=== PATIENT | male | born 1945 | race Caucasian/White ===

== ENCOUNTER → 2016-08-23 | Outpatient (CLI) | payer MEDICARE, OTHER | LOC: MW.CHNEURO 08:00 | PROVIDERS: ATTEND Psychiatry & Neurology Neuromuscular Medicine | DX: G25.0 Essential tremor (principal) | CPT/HCPCS: 99214 ==

== ENCOUNTER 2020-11-25 09:05 | Inpatient (IN) | payer MEDICARE, OTHER ==
[2020-11-25] MEDS ORDERED: Sodium Chloride 0.9% 2.5 ML Syringe FLUSH PRN (10:06)
[2020-11-25] MEDS ORDERED: Sodium Chloride 0.9% 10 ML Syringe FLUSH PRN (10:06)
--- NOTE | 2020-11-25 10:10 | EDM.PDOC ---
ED HPI GENERAL MEDICAL PROBLEM - General Chief Complaint: Respiratory Problem Stated Complaint: SOB/PT HAS NO ENERGY Time Seen by Provider: 11/25/20 10:04 - Related Data Allergies Allergy/AdvReac Type Severity Reaction Status Date / Time No Known Allergies Allergy Verified 11/25/20 10:00 Home Meds: Home Meds Aspirin/Calcium Carbonate/Mag [Aspirin Buffered 325 mg Tab] 325 mg PO DAILY 08/06/15 [History] Fluticasone Propionate [Flovent] 2 puff IH DAILY 08/06/15 [History] Fluticasone/Salmeterol [Advair Diskus 100-50] 1 puff INH BID 08/06/15 [History] Gabapentin [Neurontin] 300 mg PO TID 08/06/15 [History] Insulin Glarg,Human.Rec.Analog [Lantus] 42 unit SUBCUT QPM 08/06/15 [History] LORazepam [Ativan] 1 mg PO Q8H PRN 08/06/15 [History] Lisinopril 5 mg PO DAILY 08/06/15 [History] Omeprazole 20 mg PO DAILY 08/06/15 [History] Primidone 250 mg PO BID 08/06/15 [History] Simvastatin 1 tab PO QPM 08/06/15 [History] Tamsulosin [Flomax] 0.4 mg PO ONETIME 08/06/15 [History] Furosemide [Lasix] 40 mg PO DAILY #0 08/07/15 [Rx] metFORMIN [Glucophage XR] 500 mg PO WITHDINNER #0 08/07/15 [Rx] predniSONE [Prednisone] 40 mg PO DAILY #6 tablet 08/07/15 [Rx] Past Medical History HEENT History: Reports: Other (See Below) Cardiovascular History: Reports: High Cholesterol, Hypertension, [place] Respiratory History: Reports: COPD Gastrointestinal History: Reports: GERD Musculoskeletal History: Reports: Amputation Other Musculoskeletal History: right index finger amputation Neurological History: Reports: Other (See Below) Other Neuro History: familiar tremors Psychiatric History: Reports: Anxiety Endocrine/Metabolic History: Reports: Diabetes, Type II, Obesity/BMI 30+ Oncologic (Cancer) History: Reports: Other (See Below) - Infectious Disease History Infectious Disease History: Reports: Chicken Pox, Measles - Past Surgical History HEENT Surgical History: Reports: Cataract Surgery Other HEENT Surgeries/Procedures: bilateral eye surgery Cardiovascular Surgical History: Reports: Coronary Artery Stent Musculoskeletal Surgical History: Reports: Amputation Social & Family History - Family History Family Medical History: No Pertinent Family History - Living Situation & Occupation Occupation: Retired Course - Vital Signs Last Recorded V/S: Last Vital Signs Temp 36.6 C 11/25/20 09:30 Pulse 97 11/25/20 09:30 Resp 20 11/25/20 09:30 BP 128/65 11/25/20 09:30 Pulse Ox 91 L 11/25/20 09:30 - Orders/Labs/Meds Orders: Active Orders 24 hr Category Date Time Status EKG 12 Lead [EKG Documentation Completion] [RC] ROUTINE Care 11/25/20 09:45 Active Chest 1V Frontal [CR] Stat Exams 11/25/20 10:06 Ordered CBC WITH AUTO DIFF [HEME] Stat Lab 11/25/20 10:06 Ordered COMPREHENSIVE METABOLIC PN,CMP [CHEM] Stat Lab 11/25/20 10:06 Ordered TROPONIN I [CHEM] Stat Lab 11/25/20 10:06 Ordered UA RFX KATRINA AND CULT IF INDIC [URIN] Stat Lab 11/25/20 10:06 Ordered Sodium Chloride 0.9% [Saline Flush] Med 11/25/20 10:06 Active 10 ml FLUSH ASDIRECTED PRN Sodium Chloride 0.9% [Saline Flush] Med 11/25/20 10:06 Active 2.5 ml FLUSH ASDIRECTED PRN Saline Lock Insert [OM.PC] Stat Oth 11/25/20 10:06 Ordered Medication Orders Sodium Chloride (Sodium Chloride 0.9% 10 Ml Syringe) 10 ml FLUSH ASDIRECTED PRN PRN Reason: Keep Vein Open Sodium Chloride (Sodium Chloride 0.9% 2.5 Ml Syringe) 2.5 ml FLUSH ASDIRECTED PRN PRN Reason: Keep Vein Open Meds: Medications Generic Name Dose Route Start Last Admin Trade Name Freq PRN Reason Stop Dose Admin Sodium Chloride 10 ml 11/25/20 10:06 Sodium Chloride 0.9% 10 Ml Syringe FLUSH ASDIRECTED PRN Keep Vein Open Sodium Chloride 2.5 ml 11/25/20 10:06 Sodium Chloride 0.9% 2.5 Ml Syringe FLUSH ASDIRECTED PRN Keep Vein Open Departure - Discharge Information Referrals: Mu Briggs MD [Primary Care Provider] - Sepsis Event Note (ED) - Evaluation Sepsis Screening Result: No Definite Risk - Focused Exam Vital Signs: Vital Signs Temp Pulse Resp BP Pulse Ox 11/25/20 09:30 36.6 C 97 20 128/65 91 L - My Orders Last 24 Hours: My Active Orders 11/25/20 09:45 EKG 12 Lead [EKG Documentation Completion] [RC] ROUTINE - Assessment/Plan Last 24 Hours: My Active Orders 11/25/20 09:45 EKG 12 Lead [EKG Documentation Completion] [RC] ROUTINE
--- NOTE | 2020-11-25 10:11 | PCM.SN.2 ---
- Free Text/Narrative Note: EKG done a 1021 at 9:30 AM shows a sinus rhythm with a heart rate 98 MI 161 axis -72 abnormal R wave progression compared to 08/06/2015 no change impression no acute injury
[2020-11-25] MEDS ORDERED: Albuterol/Ipratropium 3.0-0.5 MG/3 ML Neb Soln NEB ONE (10:26)
[2020-11-25] MEDS ORDERED: methylPREDNISolone Sodium Succinate 125 MG/2 ML SDV IVPUSH ONE (10:26)
[2020-11-25 10:34] LABS: BLOOD UREA NITROGEN,BUN 21 mg/dL (7.0-18.0); CARBON DIOXIDE,CO2 24.8 mmol/L (21.0-32.0); CHLORIDE,CL 104 mmol/L (98-107); GLUCOSE RANDOM 114 mg/dL (74-106); POTASSIUM,K 4.1 mmol/L (3.5-5.1); SODIUM,NA 139 mmol/L (136-148)
--- NOTE | 2020-11-25 10:44 | EDM.PDOC ---
ED HPI GENERAL MEDICAL PROBLEM - General Chief Complaint: Respiratory Problem Stated Complaint: SOB/PT HAS NO ENERGY Time Seen by Provider: 11/25/20 10:04 Source of Information: Reports: Patient History Limitations: Reports: No Limitations - History of Present Illness INITIAL COMMENTS - FREE TEXT/NARRATIVE: HISTORY AND PHYSICAL: History of present illness: Patient is a 75-year-old male, with a history of COPD, T2DM on insulin, CAD s/p 1 2003, who presents emergency room today with concern of shortness of breath, weakness/fatigue that has been ongoing for the past 3 days. Patient states that approximately 1 week ago he thought he had a "sinus infection" as he had a stuffy/runny nose sore throat and slight cough. Patient states over the past 3 days, he continues to have the symptoms but states the cough has now returned to shortness of breath and weakness. Patient states that he has been using his inhalers as prescribed to him for COPD and states that this has had some improvement of his shortness of breath. Patient states he does not feel short of breath when at rest but states if he does try to stand up or move, he is unable to ambulate due to shortness of breath and has to sit back down. Patient states he also feels super fatigued and weak and states that this is making it harder to stand. Patient states per his baseline, he is able to stand and get up without feeling short of breath and able to move around the house without difficulty. Patient states now over the past 3 days, he has difficulty standing up and can only do this for short period of time before feeling weak and short of breath and having to sit down. Patient states he has not taken anything else for his symptoms other than prescribed medication. Patient denies any other symptoms or concerns. Patient states he has been fully vaccinated for COVID-19. Patient denies fever, chills, chest pain. Denies headache, neck stiff ness, change in vision, syncope, or near syncope. Denies nausea, vomiting, abdominal pain, diarrhea, constipation, or dysuria. Has not noted any blood in urine or stool. Patient has been eating and drinking appropriately. Review of systems: As per history of present illness and below otherwise all systems reviewed and negative. Past medical history: As per history of present illness and as reviewed below otherwise noncontributory. Surgical history: As per history of present illness and as reviewed below otherwise noncontributory. Social history: See social history for further information Family history: As per history of present illness and as reviewed below otherwise noncontributory. Physical exam: General: Patient is alert, oriented, and in no acute distress. Patient sitting comfortably on exam table. Patient O2 on RA 930-93%, otherwise vitally stable stable and reviewed by me. HEENT: Atraumatic, normocephalic, pupils equal and reactive bilaterally, negative for conjunctival pallor or scleral icterus, mucous membranes moist, TMs normal bilaterally, throat clear, neck supple, nontender, trachea midline. No drooling or trismus noted. No meningeal signs. No hot potato voice noted. Lungs: Diminished lung sounds bilaterally however, clear to auscultation, breath sounds equal bilaterally, chest nontender. Patient speaking clearly without breathlessness, no wheezing or stridor, no accessory muscle use or respiratory distress. Heart: S1S2, regular rate and rhythm without overt murmur Abdomen: Soft, nondistended, nontender. Negative for masses or hepatosplenomegaly. Negative for costovertebral tenderness. Pelvis: Stable nontender. Genitourinary: Deferred. Rectal: Deferred. Skin: Intact, warm, dry. No lesions or rashes noted. Extremities: Atraumatic, negative for cords or calf pain. Neurovascular unremarkable. Neuro: Awake, alert, oriented. Cranial nerves II through XII unremarkable. Cerebellum unremarkable. Motor and sensory unremarkable throughout. Exam nonfocal. Notes: Patient is a 75 year old male, with a history of COPD, type 2 diabetes on insulin, coronary artery disease status post 1 stent in 2003, who who presents to the emergency room today secondary to worsening shortness of breath, cough, and weakness x3 days with a 1 week history of viral syndrome. Upon arrival to the ED, patient oxygen on room air is 93% and patient is breathing comfortably on exam. Lung sounds are diminished bilaterally without wheezing and otherwise lungs are clear to auscultation. Patient is sitting in a wheelchair at bedside and does have difficulties standing up but is able to stand up but has to sit down stating he feels short of breath and weak. Patient does have a drop of his oxygen anytime he repositions himself in bed or goes to sit up and his oxygen does drop down to 8586%. Patient was placed on 2 L nasal cannula. Will obtain cardiac evaluation, initiate DuoNeb, provide dose of steroid, and reassess patient. See Dr. Trammell dictation for specific EKG interpretation. However, normal sinus rhythm with a rate of 98 without STEMI. Prolonged QT with a corrected QTC of 504. CBC shows mildly decreased red blood cell counts of 4.27. Mild thrombocytopenia at 124. Otherwise, mild derangements of CBC unremarkable. D-dimer is elevated at 0.76. Will obtain and CT chest. CMP shows mild elevation of BUN at 21, magnesium decreased at 1.7, will provide IV magnesium at this time, AST mildly elevated at 42. Troponin negative. BNP within normal limits. COVID-19 positive. Influenza negative. Chest x-ray shows no acute cardiopulmonary findings.And CT chest shows no sign of moderate to large central pulmonary embolism. Small patchy groundglass infiltrates in both lungs. Upon reevaluation of patient, he remains comfortable and vitally stable on 2 L nasal cannula. I did call and speak to the hospitalist on-call, Dr. Morales, and thoroughly discussed patient's case. Will admit to observation on telemetry. Voices understanding and is agreeable to plan of care. Denies any further questions or concerns at this time. Diagnostics: EKG, CBC, CMP, UA, chest x-ray, troponin, D-dimer, magnesium, COVID-19/influenza Therapeutics: DuoNeb, Solu-Medrol, Magnesium Sulfate 4G IV Impression: COVID-19 infection Hypoxia COPD exacerbation secondary to COVID-19 viral infection Hypomagnesemia Plan: Admit to observation on telemetry to Dr. Morales Definitive disposition and diagnosis as appropriate pending reevaluation and review of above. - Related Data Allergies Allergy/AdvReac Type Severity Reaction Status Date / Time No Known Allergies Allergy Verified 11/25/20 10:00 Home Meds: Home Meds Fluticasone/Salmeterol [Advair Diskus 100-50] 1 puff INH BID 08/06/15 [History] Gabapentin [Neurontin] 600 mg PO TID 08/06/15 [History] Insulin Glarg,Human.Rec.Analog [Lantus] 42 unit SUBCUT QPM 08/06/15 [History] Lisinopril 5 mg PO DAILY 08/06/15 [History] Omeprazole 20 mg PO DAILY 08/06/15 [History] Primidone 500 mg PO BID 08/06/15 [History] Simvastatin 1 tab PO QPM 08/06/15 [History] Tamsulosin [Flomax] 0.4 mg PO DAILY 08/06/15 [History] Furosemide [Lasix] 40 mg PO DAILY #0 08/07/15 [Rx] ALPRAZolam [Alprazolam] 1 mg PO BID PRN 11/25/20 [History] Albuterol Sulfate [Albuterol Sulfate HFA] 2 puff INH QID PRN 11/25/20 [History] Aspirin [Aspirin EC] 81 mg PO DAILY 11/25/20 [History] Cyanocobalamin (Vitamin B-12) [Vitamin B-12] 100 mcg PO DAILY 11/25/20 [History] Fluticasone Propionate [Flonase] 2 sprays NASBOTH DAILY 11/25/20 [History] Pioglitazone HCl/Metformin HCl [Actoplus Met 15 MG-850 MG] 1 each PO DAILY 11/25/20 [History] Potassium Chloride 10 meq PO DAILY 11/25/20 [History] Topiramate 100 mg PO BID 11/25/20 [History] Past Medical History HEENT History: Reports: Other (See Below) Cardiovascular History: Reports: High Cholesterol, Hypertension, [place] Respiratory History: Reports: COPD Gastrointestinal History: Reports: GERD Musculoskeletal History: Reports: Amputation Other Musculoskeletal History: right index finger amputation Neurological History: Reports: Other (See Below) Other Neuro History: familiar tremors Psychiatric History: Reports: Anxiety Endocrine/Metabolic History: Reports: Diabetes, Type II, Obesity/BMI 30+ Oncologic (Cancer) History: Reports: Other (See Below) - Infectious Disease History Infectious Disease History: Reports: Chicken Pox, Measles - Past Surgical History HEENT Surgical History: Reports: Cataract Surgery Other HEENT Surgeries/Procedures: bilateral eye surgery Cardiovascular Surgical History: Reports: Coronary Artery Stent Musculoskeletal Surgical History: Reports: Amputation Social & Family History - Family History Family Medical History: No Pertinent Family History - Living Situation & Occupation Occupation: Retired ED ROS GENERAL - Review of Systems Review Of Systems: Comprehensive ROS is negative, except as noted in HPI. ED EXAM, GENERAL - Physical Exam Exam: See Below (see dictation) Course - Vital Signs Last Recorded V/S: Last Vital Signs Temp 97.8 F 11/25/20 09:30 Pulse 82 11/25/20 13:30 Resp 22 H 11/25/20 13:30 BP 130/67 11/25/20 13:30 Pulse Ox 91 L 11/25/20 13:30 - Orders/Labs/Meds Orders: Active Orders 24 hr Category Date Time Status EKG 12 Lead [EKG Documentation Completion] [RC] ROUTINE Care 11/25/20 09:45 Active RT Aerosol Therapy [RC] ASDIRECTED Care 11/25/20 10:26 Active UA RFX KATRINA AND CULT IF INDIC [URIN] Stat Lab 11/25/20 10:06 Ordered Magnesium Sulfate/Water [Magnesium Sulfate in Water 4 Med 11/25/20 11:10 Active GM/100 ML] 4 gm Premix Bag 1 bag IV ONETIME Sodium Chloride 0.9% [Saline Flush] Med 11/25/20 10:06 Active 10 ml FLUSH ASDIRECTED PRN Sodium Chloride 0.9% [Saline Flush] Med 11/25/20 10:06 Active 2.5 ml FLUSH ASDIRECTED PRN Saline Lock Insert [OM.PC] Stat Oth 11/25/20 10:06 Ordered Medication Orders Albuterol/Ipratropium (Albuterol/Ipratropium 4 Gm Inhalation [place]) 1 gm INH Q4H PRN PRN Reason: Dyspnea Azithromycin (Azithromycin 250 Mg Tab) 500 mg PO Q24H EDI Dexamethasone (Dexamethasone 4 Mg Tab) 6 mg PO DAILY EDI Enoxaparin Sodium (Enoxaparin 40 Mg/0.4 Ml Syringe) 40 mg SUBCUT Q24H EDI Gabapentin (Gabapentin 100 Mg Cap) 300 mg PO TID EDI Magnesium Sulfate 4 gm/ Premix 100 mls @ 25 mls/hr IV ONETIME ONE Stop: 11/25/20 15:09 Last Admin: 11/25/20 12:37 Dose: 25 mls/hr Documented by: SEWATIF Remdesivir 100 mg/ Sodium (Chloride) 100 mls @ 100 mls/hr IV Q24H EDI Stop: 11/29/20 15:29 Remdesivir 200 mg/ Sodium (Chloride) 250 mls @ 250 mls/hr IV ONETIME ONE Stop: 11/25/20 14:17 Lisinopril (Lisinopril 5 Mg Tab) 5 mg PO DAILY EDI Lorazepam (Lorazepam 1 Mg Tab) 1 mg PO Q8H PRN PRN Reason: Anxiety Non-Formulary Medication (Insulin Glarg,Human.Rec.Analog) 42 unit SUBCUT QPM EDI Omeprazole (Omeprazole 20 Mg Cap.Cr) 20 mg PO DAILY EDI Fluticasone/Salmeterol (Fluticasone/Salmeterol 100-50 Mcg Inhalation Powder 14/Diskus) 1 puff INH BID EDI Simvastatin (Simvastatin 40 Mg Tab) 40 mg PO BEDTIME EDI Sodium Chloride (Sodium Chloride 0.9% 10 Ml Syringe) 10 ml FLUSH ASDIRECTED PRN PRN Reason: Keep Vein Open Last Admin: 11/25/20 10:49 Dose: 10 ml Documented by: TAMI Sodium Chloride (Sodium Chloride 0.9% 2.5 Ml Syringe) 2.5 ml FLUSH ASDIRECTED PRN PRN Reason: Keep Vein Open Last Admin: 11/25/20 10:49 Dose: 2.5 ml Documented by: TAMI Labs: Laboratory Tests 11/25/20 11/25/20 11/25/20 Range/Units 09:45 09:45 09:45 WBC 4.90 (4.0-11.0) K/uL RBC 4.27 L (4.50-5.90) M/uL Hgb 14.3 (13.0-17.0) g/dL Hct 43.3 (38.0-50.0) % MCV 101.4 H (80.0-98.0) fL MCH 33.5 H (27.0-32.0) pg MCHC 33.0 (31.0-37.0) g/dL RDW Std Deviation 52.5 (28.0-62.0) fl RDW Coeff of Romina 14 (11.0-15.0) % Plt Count 124 L (150-400) K/uL MPV 11.70 (7.40-12.00) fL Neut % (Auto) 75.9 (48.0-80.0) % Lymph % (Auto) 19.2 (16.0-40.0) % [place] % (Auto) 4.9 (0.0-15.0) % Eos % (Auto) 0.0 (0.0-7.0) % Baso % (Auto) 0.0 (0.0-1.5) % Neut # (Auto) 3.7 (1.4-5.7) K/uL Lymph # (Auto) 0.9 (0.6-2.4) K/uL [place] # (Auto) 0.2 (0.0-0.8) K/uL Eos # (Auto) 0.0 (0.0-0.7) K/uL Baso # (Auto) 0.0 (0.0-0.1) K/uL Nucleated RBC % 0.0 /100WBC Nucleated RBCs # 0 K/uL D-Dimer, Quantitative 0.76 H (0.0-0.50) mg/L FEU Sodium 139 (136-148) mmol/L Potassium 4.1 (3.5-5.1) mmol/L Chloride 104 (98-107) mmol/L Carbon Dioxide 24.8 (21.0-32.0) mmol/L BUN 21 H (7.0-18.0) mg/dL Creatinine 1.1 (0.8-1.3) mg/dL Est Cr Clr Drug Dosing 58.92 mL/min Estimated GFR (MDRD) > 60.0 ml/min Glucose 114 H (74-106) mg/dL Calcium 8.2 L (8.5-10.1) mg/dL Magnesium (1.8-2.4) mg/dL Total Bilirubin 0.3 (0.2-1.0) mg/dL AST 42 H (15-37) IU/L ALT 41 (14-63) IU/L Alkaline Phosphatase 65 (46-116) U/L Troponin I < 0.050 (0.000-0.056) ng/mL B-Natriuretic Peptide (<100) PG/ML Total Protein 7.2 (6.4-8.2) g/dL Albumin 2.9 L (3.4-5.0) g/dL Globulin 4.3 H (2.6-4.0) g/dL Albumin/Globulin Ratio 0.7 L (0.9-1.6) SARS-CoV-2 RNA (MARY JO) (NEGATIVE) 11/25/20 11/25/20 11/25/20 Range/Units 09:45 09:45 11:05 WBC (4.0-11.0) K/uL RBC (4.50-5.90) M/uL Hgb (13.0-17.0) g/dL Hct (38.0-50.0) % MCV (80.0-98.0) fL MCH (27.0-32.0) pg MCHC (31.0-37.0) g/dL RDW Std Deviation (28.0-62.0) fl RDW Coeff of Romina (11.0-15.0) % Plt Count (150-400) K/uL MPV (7.40-12.00) fL Neut % (Auto) (48.0-80.0) % Lymph % (Auto) (16.0-40.0) % [place] % (Auto) (0.0-15.0) % Eos % (Auto) (0.0-7.0) % Baso % (Auto) (0.0-1.5) % Neut # (Auto) (1.4-5.7) K/uL Lymph # (Auto) (0.6-2.4) K/uL [place] # (Auto) (0.0-0.8) K/uL Eos # (Auto) (0.0-0.7) K/uL Baso # (Auto) (0.0-0.1) K/uL Nucleated RBC % /100WBC Nucleated RBCs # K/uL D-Dimer, Quantitative (0.0-0.50) mg/L FEU Sodium (136-148) mmol/L Potassium (3.5-5.1) mmol/L Chloride (98-107) mmol/L Carbon Dioxide (21.0-32.0) mmol/L BUN (7.0-18.0) mg/dL Creatinine (0.8-1.3) mg/dL Est Cr Clr Drug Dosing mL/min Estimated GFR (MDRD) ml/min Glucose (74-106) mg/dL Calcium (8.5-10.1) mg/dL Magnesium 1.7 L (1.8-2.4) mg/dL Total Bilirubin (0.2-1.0) mg/dL AST (15-37) IU/L ALT (14-63) IU/L Alkaline Phosphatase (46-116) U/L Troponin I (0.000-0.056) ng/mL B-Natriuretic Peptide 28 (<100) PG/ML Total Protein (6.4-8.2) g/dL Albumin (3.4-5.0) g/dL Globulin (2.6-4.0) g/dL Albumin/Globulin Ratio (0.9-1.6) SARS-CoV-2 RNA (MARY JO) POSITIVE H (NEGATIVE) Meds: Medications Generic Name Dose Route Start Last Admin Trade Name Freq PRN Reason Stop Dose Admin Albuterol/Ipratropium 1 gm 11/25/20 14:18 Albuterol/Ipratropium 4 Gm Inhalation [place] INH Q4H PRN Dyspnea Azithromycin 500 mg 11/25/20 14:30 Azithromycin 250 Mg Tab PO Q24H [facility] Dexamethasone 6 mg 11/26/20 09:00 Dexamethasone 4 Mg Tab PO DAILY [facility] Enoxaparin Sodium 40 mg 11/25/20 14:15 Enoxaparin 40 Mg/0.4 Ml Syringe SUBCUT Q24H [facility] Gabapentin 300 mg 11/25/20 22:00 Gabapentin 100 Mg Cap PO TID [facility] Magnesium Sulfate 4 gm/ Premix 100 mls @ 25 mls/hr 11/25/20 11:10 11/25/20 12:37 IV 11/25/20 15:09 25 mls/hr ONETIME ONE Administration Remdesivir 100 mg/ Sodium 100 mls @ 100 mls/hr 11/26/20 14:30 Chloride IV 11/29/20 15:29 Q24H EDI Remdesivir 200 mg/ Sodium 250 mls @ 250 mls/hr 11/25/20 14:16 Chloride IV 11/25/20 14:17 ONETIME ONE Lisinopril 5 mg 11/26/20 09:00 Lisinopril 5 Mg Tab PO DAILY [facility] Lorazepam 1 mg 11/25/20 14:02 Lorazepam 1 Mg Tab PO Q8H PRN Anxiety Non-Formulary Medication 42 unit 11/25/20 18:00 Insulin Glarg,Human.Rec.Analog SUBCUT QPM [facility] Omeprazole 20 mg 11/26/20 09:00 Omeprazole 20 Mg Cap.Cr PO DAILY [facility] Fluticasone/Salmeterol 1 puff 11/25/20 21:00 Fluticasone/Salmeterol 100-50 Mcg Inhalation Powder 14/Diskus INH BID [facility] Simvastatin 40 mg 11/25/20 21:00 Simvastatin 40 Mg Tab PO BEDTIME EDI Sodium Chloride 10 ml 11/25/20 10:06 11/25/20 10:49 Sodium Chloride 0.9% 10 Ml Syringe FLUSH 10 ml ASDIRECTED PRN Administration Keep Vein Open Sodium Chloride 2.5 ml 11/25/20 10:06 11/25/20 10:49 Sodium Chloride 0.9% 2.5 Ml Syringe FLUSH 2.5 ml ASDIRECTED PRN Administration Keep Vein Open Discontinued Medications Generic Name Dose Route Start Last Admin Trade Name Freq PRN Reason Stop Dose Admin Albuterol/Ipratropium 3 ml 11/25/20 10:26 11/25/20 10:49 Albuterol/Ipratropium 3.0-0.5 Mg/3 Ml Neb Soln NEB 11/25/20 10:27 3 ml ONETIME ONE Administration Iopamidol 80 ml 11/25/20 12:05 11/25/20 12:06 Iopamidol 755 Mg/Ml 500 Ml Multipack Bottle IVPUSH 11/25/20 12:06 80 ml ONETIME STA Administration Methylprednisolone Sodium Succinate 125 mg 11/25/20 10:26 11/25/20 10:49 Methylprednisolone Sodium Succinate 125 Mg/2 Ml Sdv IVPUSH 11/25/20 10:27 125 mg ONETIME ONE Administration Departure - Departure Time of Disposition: 13:30 Disposition: Refer to Observation Clinical Impression: COVID-19 virus infection, Hypoxia, COPD exacerbation, Hypomagnesemia - Discharge Information Sepsis Event Note (ED) - Evaluation Sepsis Screening Result: No Definite Risk - Focused Exam Vital Signs: Vital Signs Temp Pulse Resp BP Pulse Ox 11/25/20 13:30 82 22 H 130/67 91 L 11/25/20 12:43 88 22 H 120/69 92 L 11/25/20 11:31 84 22 H 137/60 92 L 11/25/20 11:02 90 24 H 148/48 H 94 L 11/25/20 09:30 97.8 F 97 20 128/65 91 L - My Orders Last 24 Hours: My Active Orders 11/25/20 10:06 UA RFX KATRINA AND CULT IF INDIC [URIN] Stat Sodium Chloride 0.9% [Saline Flush] 10 ml FLUSH ASDIRECTED PRN Sodium Chloride 0.9% [Saline Flush] 2.5 ml FLUSH ASDIRECTED PRN Saline Lock Insert [OM.PC] Stat 11/25/20 10:26 RT Aerosol Therapy [RC] ASDIRECTED 11/25/20 11:10 Magnesium Sulfate/Water [Magnesium Sulfate in Water 4 GM/100 ML] 4 gm Premix Bag 1 bag IV ONETIME - Assessment/Plan Last 24 Hours: My Active Orders 11/25/20 10:06 UA RFX KATRINA AND CULT IF INDIC [URIN] Stat Sodium Chloride 0.9% [Saline Flush] 10 ml FLUSH ASDIRECTED PRN Sodium Chloride 0.9% [Saline Flush] 2.5 ml FLUSH ASDIRECTED PRN Saline Lock Insert [OM.PC] Stat 11/25/20 10:26 RT Aerosol Therapy [RC] ASDIRECTED 11/25/20 11:10 Magnesium Sulfate/Water [Magnesium Sulfate in Water 4 GM/100 ML] 4 gm Premix Bag 1 bag IV ONETIME
[2020-11-25] MEDS ORDERED: Magnesium Sulfate/Water 4 GM in Premix Bag 1 BAG IV ONE (11:10)
--- NOTE | 2020-11-25 11:31 | CR ---
INDICATION: Shortness of breath. TECHNIQUE: Portable AP chest. FINDINGS: Mild cardiomegaly. No evidence of acute pneumonic infiltrates or CHF. No pneumothorax or pleural effusion. Impression: Mild cardiomegaly. 1. No acute pathology. Dictated by Tae Treviño MD @ 11/25/2020 11:28:[address] Tae Treviño @ Nov 25 2020 11:28AM
[2020-11-25] MEDS ORDERED: Iopamidol 755 MG/ML 500 ML Multipack Bottle IVPUSH STA (12:05)
--- NOTE | 2020-11-25 12:44 | CT ---
INDICATION: Shortness of breath. Elevated D-dimer. TECHNIQUE: CT chest PE was acquired with 80 cc Isovue 370 IV contrast. COMPARISON: None. FINDINGS: Heart and vasculature: No sign of moderate to large or central pulmonary embolism. Smaller pulmonary arteries are not adequately assessed on this exam. Heart size is normal. Thoracic aorta and pulmonary artery are normal in caliber.Coronary artery atherosclerosis is present. Lungs and pleural: Multiple small patchy ground-glass infiltrates are in both lungs, most severe in the lower lobes. Pleural spaces are clear. No pneumothorax. Lymph nodes/mediastinum: No mediastinal, hilar, or axillary adenopathy. Chest wall: No masses. Upper abdomen: Gallbladder stones present. Bones: Unremarkable for age. IMPRESSION: 1. No sign of [id number] or central pulmonary embolism. 2. Small patchy ground-glass infiltrates in both lungs could represent pneumonitis or pulmonary edema. COVID-19 viral infection is not definite but possible. Please note that all CT scans at this facility use dose modulation, iterative reconstruction, and/or weight-based dosing when appropriate to reduce radiation dose to as low as reasonably achievable. Dictated by Markell Ceballos MD @ 11/25/2020 12:43:[address] Markell Ceballos @ Nov 25 2020 12:43PM
[2020-11-25] MEDS ORDERED: ALPRAZolam 0.5 MG Tab PO PRN (14:02)
[2020-11-25] MEDS ORDERED: REMDESIVIR 200 MG in Sodium Chloride 0.9% 250 ML IV ONE ×2 (14:16→18:00)
[2020-11-25] MEDS ORDERED: Albuterol/Ipratropium 4 GM Inhalation Spray INH PRN (14:18)
--- NOTE | 2020-11-25 14:19 | PCM.HP.2 ---
H&P History of Present Illness - General Date of Service: 11/25/20 Admit Problem/Dx: Admission Diagnosis/Problem Admission Diagnosis/Problem Hypoxia - History of Present Illness Initial Comments - Free Text/Narative: 75 yo male with pmh of DM, COPD who presented to the ED with three day history of shortness of breath, productive cough, fevers, and sinus congestion. Patient has been vaccinated for COVID in April. IN the ED patient is requiring 2 L NC to keep sats above 90%. - Related Data Allergies/Adverse Reactions: Allergies Allergy/AdvReac Type Severity Reaction Status Date / Time No Known Allergies Allergy Verified 11/25/20 15:31 Home Medications: Home Meds Fluticasone/Salmeterol [Advair Diskus 100-50] 1 puff INH BID 08/06/15 [History] Gabapentin [Neurontin] 600 mg PO TID 08/06/15 [History] Insulin Glarg,Human.Rec.Analog [Lantus] 42 unit SUBCUT QPM 08/06/15 [History] Lisinopril 5 mg PO DAILY 08/06/15 [History] Omeprazole 20 mg PO DAILY 08/06/15 [History] Primidone 500 mg PO BID 08/06/15 [History] Simvastatin 40 mg PO BEDTIME 08/06/15 [History] Tamsulosin [Flomax] 0.4 mg PO DAILY 08/06/15 [History] Furosemide [Lasix] 40 mg PO DAILY #0 08/07/15 [Rx] ALPRAZolam [Alprazolam] 1 mg PO BID PRN 11/25/20 [History] Albuterol Sulfate [Albuterol Sulfate HFA] 2 puff INH QID PRN 11/25/20 [History] Aspirin [Aspirin EC] 81 mg PO DAILY 11/25/20 [History] Cyanocobalamin (Vitamin B-12) [Vitamin B-12] 100 mcg PO DAILY 11/25/20 [History] Fluticasone Propionate [Flonase] 2 sprays NASBOTH DAILY 11/25/20 [History] Pioglitazone HCl/Metformin HCl [Actoplus Met 15 MG-850 MG] 1 each PO DAILY 11/25/20 [History] Potassium Chloride 10 meq PO DAILY 11/25/20 [History] Topiramate 100 mg PO BID 11/25/20 [History] Past Medical History HEENT History: Reports: Other (See Below) Cardiovascular History: Reports: High Cholesterol, Hypertension, CT Respiratory History: Reports: COPD Gastrointestinal History: Reports: GERD Musculoskeletal History: Reports: Amputation Other Musculoskeletal History: right index finger amputation Neurological History: Reports: Other (See Below) Other Neuro History: familiar tremors Psychiatric History: Reports: Anxiety Endocrine/Metabolic History: Reports: Diabetes, Type II, Obesity/BMI 30+ Oncologic (Cancer) History: Reports: Other (See Below) - Infectious Disease History Infectious Disease History: Reports: Chicken Pox, Measles - Past Surgical History HEENT Surgical History: Reports: Cataract Surgery Other HEENT Surgeries/Procedures: bilateral eye surgery Cardiovascular Surgical History: Reports: Coronary Artery Stent Musculoskeletal Surgical History: Reports: Amputation Social & Family History - Family History Family Medical History: No Pertinent Family History - Living Situation & Occupation Occupation: Retired H&P Review of Systems - Review of Systems: Review Of Systems: Comprehensive ROS is negative, except as noted in HPI. Exam - Exam Exam: See Below - Vital Signs Vital Signs: Last Vital Signs Temp 36.6 C 11/25/20 09:30 Pulse 82 11/25/20 13:30 Resp 22 H 11/25/20 13:30 BP 130/67 11/25/20 13:30 Pulse Ox 91 L 11/25/20 13:30 Weight: 136.078 kg - Exam General: Alert, Oriented HEENT: Mucosa Moist & [place] Neck: Supple Lungs: Wheezing Cardiovascular: Regular Rate, Regular Rhythm GI/Abdominal Exam: Normal Bowel Sounds, Soft, Non-Tender Extremities: Non-Tender, Pedal Edema (+1) Skin: Warm, Dry, Intact Neurological: No: Focal Deficit - Patient Data Lab Results Last 24 hrs: Laboratory Results - last 24 hr 11/25/20 11/25/20 11/25/20 Range/Units 09:45 09:45 09:45 WBC 4.90 (4.0-11.0) K/uL RBC 4.27 L (4.50-5.90) M/uL Hgb 14.3 (13.0-17.0) g/dL Hct 43.3 (38.0-50.0) % MCV 101.4 H (80.0-98.0) fL MCH 33.5 H (27.0-32.0) pg MCHC 33.0 (31.0-37.0) g/dL RDW Std Deviation 52.5 (28.0-62.0) fl RDW Coeff of Romina 14 (11.0-15.0) % Plt Count 124 L (150-400) K/uL MPV 11.70 (7.40-12.00) fL Neut % (Auto) 75.9 (48.0-80.0) % Lymph % (Auto) 19.2 (16.0-40.0) % Divide % (Auto) 4.9 (0.0-15.0) % Eos % (Auto) 0.0 (0.0-7.0) % Baso % (Auto) 0.0 (0.0-1.5) % Neut # (Auto) 3.7 (1.4-5.7) K/uL Lymph # (Auto) 0.9 (0.6-2.4) K/uL Divide # (Auto) 0.2 (0.0-0.8) K/uL Eos # (Auto) 0.0 (0.0-0.7) K/uL Baso # (Auto) 0.0 (0.0-0.1) K/uL Nucleated RBC % 0.0 /100WBC Nucleated RBCs # 0 K/uL D-Dimer, Quantitative 0.76 H (0.0-0.50) mg/L FEU Sodium 139 (136-148) mmol/L Potassium 4.1 (3.5-5.1) mmol/L Chloride 104 (98-107) mmol/L Carbon Dioxide 24.8 (21.0-32.0) mmol/L BUN 21 H (7.0-18.0) mg/dL Creatinine 1.1 (0.8-1.3) mg/dL Est Cr Clr Drug Dosing 58.92 mL/min Estimated GFR (MDRD) > 60.0 ml/min Glucose 114 H (74-106) mg/dL Calcium 8.2 L (8.5-10.1) mg/dL Magnesium (1.8-2.4) mg/dL Total Bilirubin 0.3 (0.2-1.0) mg/dL AST 42 H (15-37) IU/L ALT 41 (14-63) IU/L Alkaline Phosphatase 65 (46-116) U/L Troponin I < 0.050 (0.000-0.056) ng/mL B-Natriuretic Peptide (<100) PG/ML Total Protein 7.2 (6.4-8.2) g/dL Albumin 2.9 L (3.4-5.0) g/dL Globulin 4.3 H (2.6-4.0) g/dL Albumin/Globulin Ratio 0.7 L (0.9-1.6) SARS-CoV-2 RNA (MARY JO) (NEGATIVE) 11/25/20 11/25/20 11/25/20 Range/Units 09:45 09:45 11:05 WBC (4.0-11.0) K/uL RBC (4.50-5.90) M/uL Hgb (13.0-17.0) g/dL Hct (38.0-50.0) % MCV (80.0-98.0) fL MCH (27.0-32.0) pg MCHC (31.0-37.0) g/dL RDW Std Deviation (28.0-62.0) fl RDW Coeff of Romina (11.0-15.0) % Plt Count (150-400) K/uL MPV (7.40-12.00) fL Neut % (Auto) (48.0-80.0) % Lymph % (Auto) (16.0-40.0) % Divide % (Auto) (0.0-15.0) % Eos % (Auto) (0.0-7.0) % Baso % (Auto) (0.0-1.5) % Neut # (Auto) (1.4-5.7) K/uL Lymph # (Auto) (0.6-2.4) K/uL Divide # (Auto) (0.0-0.8) K/uL Eos # (Auto) (0.0-0.7) K/uL Baso # (Auto) (0.0-0.1) K/uL Nucleated RBC % /100WBC Nucleated RBCs # K/uL D-Dimer, Quantitative (0.0-0.50) mg/L FEU Sodium (136-148) mmol/L Potassium (3.5-5.1) mmol/L Chloride (98-107) mmol/L Carbon Dioxide (21.0-32.0) mmol/L BUN (7.0-18.0) mg/dL Creatinine (0.8-1.3) mg/dL Est Cr Clr Drug Dosing mL/min Estimated GFR (MDRD) ml/min Glucose (74-106) mg/dL Calcium (8.5-10.1) mg/dL Magnesium 1.7 L (1.8-2.4) mg/dL Total Bilirubin (0.2-1.0) mg/dL AST (15-37) IU/L ALT (14-63) IU/L Alkaline Phosphatase (46-116) U/L Troponin I (0.000-0.056) ng/mL B-Natriuretic Peptide 28 (<100) PG/ML Total Protein (6.4-8.2) g/dL Albumin (3.4-5.0) g/dL Globulin (2.6-4.0) g/dL Albumin/Globulin Ratio (0.9-1.6) SARS-CoV-2 RNA (MARY JO) POSITIVE H (NEGATIVE) Result Diagrams: 11/26/20 05:35 11/26/20 05:35 Jordan Results Last 24 hrs: Microbiology 11/25/20 11:05 Influenza Type A Antigen Screen - Final Nasopharyngeal Swab NEGATIVE INFLUENZA A VIRUS AG REFERENCE RANGE: NEGATIVE Influenza Type B Antigen Screen - Final NEGATIVE INFLUENZA B VIRUS AG REFERENCE RANGE: NEGATIVE Sepsis Event Note - Evaluation Sepsis Screening Result: No Definite Risk - Focused Exam Vital Signs: Vital Signs Temp Pulse Resp BP Pulse Ox 11/25/20 13:30 82 22 H 130/67 91 L 11/25/20 12:43 88 22 H 120/69 92 L 11/25/20 11:31 84 22 H 137/60 92 L 11/25/20 11:02 90 24 H 148/48 H 94 L 11/25/20 09:30 36.6 C 97 20 128/65 91 L Problem List Initiated/Reviewed/Updated: Yes Orders Last 24hrs: Active Orders 24 hr Category Date Time Status Patient Status [ADT] Routine ADT 11/25/20 14:05 Ordered Antiembolic Devices [RC] PER UNIT ROUTINE Care 11/25/20 14:05 Ordered EKG 12 Lead [EKG Documentation Completion] [RC] ROUTINE Care 11/25/20 09:45 Active Oxygen Therapy [RC] PRN Care 11/25/20 14:05 Ordered RT Aerosol Therapy [RC] ASDIRECTED Care 11/25/20 10:26 Active RT Post Treatment Assessment [RC] Click to Edit Care 11/25/20 14:03 Ordered RT Post Treatment Assessment [RC] Click to Edit Care 11/25/20 14:18 Ordered RT Pre-Treatment Assessment [RC] Click to Edit Care 11/25/20 14:03 Ordered RT Pre-Treatment Assessment [RC] Click to Edit Care 11/25/20 14:18 Ordered Up ad Kae [RC] ASDIRECTED Care 11/25/20 14:05 Ordered VTE/DVT Education [RC] PER UNIT ROUTINE Care 11/25/20 14:05 Ordered Vital Signs [RC] Q4H Care 11/25/20 14:05 Ordered [place] [employer] Diabetic [employer] Diet [DIET] Diet 11/25/20 Breakfast Ordered CBC WITH AUTO DIFF [HEME] AM Lab 11/26/20 05:11 Ordered CBC WITH AUTO DIFF [HEME] AM Lab 11/27/20 05:11 Ordered CBC WITH AUTO DIFF [HEME] AM Lab 11/28/20 05:11 Ordered CBC WITH AUTO DIFF [HEME] AM Lab 11/29/20 05:11 Ordered CBC WITH AUTO DIFF [HEME] AM Lab 11/30/20 05:11 Ordered COMPREHENSIVE METABOLIC PN,CMP [CHEM] AM Lab 11/26/20 05:11 Ordered COMPREHENSIVE METABOLIC PN,CMP [CHEM] AM Lab 11/27/20 05:11 Ordered COMPREHENSIVE METABOLIC PN,CMP [CHEM] AM Lab 11/28/20 05:11 Ordered COMPREHENSIVE METABOLIC PN,CMP [CHEM] AM Lab 11/29/20 05:11 Ordered COMPREHENSIVE METABOLIC PN,CMP [CHEM] AM Lab 11/30/20 05:11 Ordered MAGNESIUM [CHEM] AM Lab 11/26/20 05:11 Ordered MAGNESIUM [CHEM] AM Lab 11/27/20 05:11 Ordered MAGNESIUM [CHEM] AM Lab 11/28/20 05:11 Ordered MAGNESIUM [CHEM] AM Lab 11/29/20 05:11 Ordered MAGNESIUM [CHEM] AM Lab 11/30/20 05:11 Ordered UA RFX JORDAN AND CULT IF INDIC [URIN] Stat Lab 11/25/20 10:06 Ordered Albuterol/Ipratropium [Combivent Respimat] Med 11/25/20 14:18 Ordered 1 gm INH Q4H PRN Enoxaparin [Lovenox] Med 11/25/20 14:15 Ordered 40 mg SUBCUT Q24H Fluticasone/Salmeterol [Advair Diskus 100-50] Med 11/25/20 21:00 Ordered 1 puff INH BID Gabapentin [Neurontin] Med 11/25/20 22:00 Ordered 300 mg PO TID Insulin Glarg,Human.Rec.Analog Med 11/25/20 18:00 Ordered 42 unit SUBCUT QPM LORazepam [Ativan] Med 11/25/20 14:02 Ordered 1 mg PO Q8H PRN Magnesium Sulfate/Water [Magnesium Sulfate in Water 4 Med 11/25/20 11:10 Active GM/100 ML] 4 gm Premix Bag 1 bag IV ONETIME Omeprazole Med 11/26/20 09:00 Ordered 20 mg PO DAILY Remdesivir 100 mg Med 11/26/20 14:30 Ordered Sodium Chloride 0.9% [Normal Saline] 100 ml IV Q24H Remdesivir 200 mg Med 11/25/20 14:16 Ordered Sodium Chloride 0.9% [Normal Saline] 250 ml IV ONETIME Simvastatin [Zocor] Med 11/25/20 18:00 Ordered 40 mg PO QPM Sodium Chloride 0.9% [Saline Flush] Med 11/25/20 10:06 Active 10 ml FLUSH ASDIRECTED PRN Sodium Chloride 0.9% [Saline Flush] Med 11/25/20 10:06 Active 2.5 ml FLUSH ASDIRECTED PRN dexAMETHasone Med 11/26/20 09:00 Ordered 6 mg PO DAILY lisinopriL [Prinivil] Med 11/26/20 09:00 Ordered 5 mg PO DAILY Saline Lock Insert [OM.PC] Stat Oth 11/25/20 10:06 Ordered Sequential Compression Device [OM.PC] Per Unit Routine Oth 11/25/20 14:05 Ordered Resuscitation Status Routine Resus Stat 11/25/20 14:05 Ordered Medication Orders Dexamethasone (Dexamethasone 4 Mg Tab) 6 mg PO DAILY EDI Enoxaparin Sodium (Enoxaparin 40 Mg/0.4 Ml Syringe) 40 mg SUBCUT Q24H EDI Gabapentin (Gabapentin 100 Mg Cap) 300 mg PO TID EDI Magnesium Sulfate 4 gm/ Premix 100 mls @ 25 mls/hr IV ONETIME ONE Stop: 11/25/20 15:09 Last Admin: 11/25/20 12:37 Dose: 25 mls/hr Documented by: TAMI Remdesivir 100 mg/ Sodium (Chloride) 100 mls @ 100 mls/hr IV Q24H EDI Stop: 11/29/20 15:29 Remdesivir 200 mg/ Sodium (Chloride) 250 mls @ 250 mls/hr IV ONETIME ONE Stop: 11/25/20 14:17 Lisinopril (Lisinopril 5 Mg Tab) 5 mg PO DAILY EDI Lorazepam (Lorazepam 1 Mg Tab) 1 mg PO Q8H PRN PRN Reason: Anxiety Non-Formulary Medication (Insulin Glarg,Human.Rec.Analog) 42 unit SUBCUT QPM EDI Omeprazole (Omeprazole 20 Mg Cap.Cr) 20 mg PO DAILY EDI Fluticasone/Salmeterol (Fluticasone/Salmeterol 100-50 Mcg Inhalation Powder 14/Diskus) 1 puff INH BID EDI Simvastatin (Simvastatin 40 Mg Tab) 40 mg PO QPM EDI Sodium Chloride (Sodium Chloride 0.9% 10 Ml Syringe) 10 ml FLUSH ASDIRECTED PRN PRN Reason: Keep Vein Open Last Admin: 11/25/20 10:49 Dose: 10 ml Documented by: TAMI Sodium Chloride (Sodium Chloride 0.9% 2.5 Ml Syringe) 2.5 ml FLUSH ASDIRECTED PRN PRN Reason: Keep Vein Open Last Admin: 11/25/20 10:49 Dose: 2.5 ml Documented by: TAMI Assessment/Plan Comment:: 75 yo male admitted for COPD exacerbation, COVID pneumonia and acute hypoxic respiratory failure. COPD exacerbation: solumedrol, combivent and azithromycin COVID pneumonia: remdesivir, lovenox, steroid
[2020-11-25] MEDS ORDERED: 50% Dextrose in Water 50 ML Syringe IVPUSH PRN (15:28)
[2020-11-25] MEDS ORDERED: Glucagon,Human Recombinant 1 MG Vial IM PRN (15:28)
[2020-11-25] MEDS: Enoxaparin 40 MG/0.4 ML Syringe SUBCUT SCH (15:30)
[2020-11-25] MEDS: Azithromycin 250 MG Tab PO SCH (15:31)
[2020-11-25] MEDS: Insulin Aspart 100 Units/ML 3 ML Pen SUBCUT SCH (18:21)
[2020-11-25] MEDS: Simvastatin 40 MG Tab PO SCH (20:37)
[2020-11-25] MEDS: Topiramate 100 MG Tab PO SCH (20:37)
[2020-11-25] MEDS: Fluticasone/Salmeterol 100-50 MCG Inhalation Powder 14/Diskus INH SCH (20:38)
[2020-11-25] MEDS: Insulin Glargine,Human Rec. Analog 100 Units/ML 3 ML Pen SUBCUT SCH (20:39)
[2020-11-25] MEDS: Gabapentin 300 MG Cap PO SCH (21:32)
[2020-11-25] MEDS: Primidone 250 MG Tab PO SCH (21:32)
[2020-11-25] MEDS ORDERED: Gabapentin 300 MG Cap PO PRN (22:00)
[2020-11-26 06:21] LABS: BLOOD UREA NITROGEN,BUN 19 mg/dL (7.0-18.0); CARBON DIOXIDE,CO2 24.1 mmol/L (21.0-32.0); CHLORIDE,CL 107 mmol/L (98-107); GLUCOSE RANDOM 116 mg/dL (74-106); SODIUM,NA 140 mmol/L (136-148)
[2020-11-26] MEDS: Omeprazole 20 MG Cap.CR PO SCH (06:37)
[2020-11-26] MEDS: Gabapentin 300 MG Cap PO SCH ×3 (06:37→21:03)
[2020-11-26] MEDS: Insulin Aspart 100 Units/ML 3 ML Pen SUBCUT SCH ×3 (07:06→17:57)
--- NOTE | 2020-11-26 08:06 | PCM.PN ---
- General Info Date of Service: 11/26/20 Admission Dx/Problem (Free Text): Admission Diagnosis/Problem Admission Diagnosis/Problem Acute hypoxic respiratory failure, Covid 19 pneumonia, and COPD exacerbation Subjective Update: Reports feeling tired this morning, denies any chest pain. reports shortness of breath continues, but slightly improved. reports mild edema to lower extremities is normal for him. reports mild productive cough. Sinus congestion, denies sore throat. Denies abdominal pain, nausea or vomiting. Functional Status: Reports: Pain Controlled, Tolerating Diet, Ambulating, Urinating - Review of Systems General: Reports: No Symptoms. Denies: Weakness, Fatigue HEENT: Reports: Headaches, Sinus Congestion. Denies: Sore Throat, Visual Changes Pulmonary: Reports: Shortness of Breath, Cough, Sputum, Wheezing Cardiovascular: Reports: Dyspnea on Exertion. Denies: Chest Pain, Palpitations Gastrointestinal: Reports: No Symptoms. Denies: Abdominal Pain, Nausea, Vomiting Genitourinary: Reports: No Symptoms. Denies: Dysuria Musculoskeletal: Reports: No Symptoms Skin: Reports: No Symptoms Neurological: Reports: No Symptoms Psychiatric: Reports: No Symptoms - Patient Data Vitals - Most Recent: Last Vital Signs Temp 98.7 F 11/26/20 04:19 Pulse 97 11/26/20 04:19 Resp 18 11/26/20 04:19 BP 145/65 H 11/26/20 04:19 Pulse Ox 92 L 11/26/20 04:19 Weight - Most Recent: 151.863 kg I&O - Last 24 Hours: Intake & Output 11/25/20 11/26/20 11/26/20 22:59 06:59 14:59 Intake Total 120 Output Total 300 200 Balance -180 -200 Lab Results Last 24 Hours: Laboratory Results - last 24 hr 11/25/20 11/25/20 11/25/20 Range/Units 09:45 09:45 09:45 WBC 4.90 (4.0-11.0) K/uL RBC 4.27 L (4.50-5.90) M/uL Hgb 14.3 (13.0-17.0) g/dL Hct 43.3 (38.0-50.0) % MCV 101.4 H (80.0-98.0) fL MCH 33.5 H (27.0-32.0) pg MCHC 33.0 (31.0-37.0) g/dL RDW Std Deviation 52.5 (28.0-62.0) fl RDW Coeff of Romina 14 (11.0-15.0) % Plt Count 124 L (150-400) K/uL MPV 11.70 (7.40-12.00) fL Neut % (Auto) 75.9 (48.0-80.0) % Lymph % (Auto) 19.2 (16.0-40.0) % [place] % (Auto) 4.9 (0.0-15.0) % Eos % (Auto) 0.0 (0.0-7.0) % Baso % (Auto) 0.0 (0.0-1.5) % Neut # (Auto) 3.7 (1.4-5.7) K/uL Lymph # (Auto) 0.9 (0.6-2.4) K/uL [place] # (Auto) 0.2 (0.0-0.8) K/uL Eos # (Auto) 0.0 (0.0-0.7) K/uL Baso # (Auto) 0.0 (0.0-0.1) K/uL Nucleated RBC % 0.0 /100WBC Nucleated RBCs # 0 K/uL D-Dimer, Quantitative 0.76 H (0.0-0.50) mg/L FEU Sodium 139 (136-148) mmol/L Potassium 4.1 (3.5-5.1) mmol/L Chloride 104 (98-107) mmol/L Carbon Dioxide 24.8 (21.0-32.0) mmol/L BUN 21 H (7.0-18.0) mg/dL Creatinine 1.1 (0.8-1.3) mg/dL Est Cr Clr Drug Dosing 58.92 mL/min Estimated GFR (MDRD) > 60.0 ml/min Glucose 114 H (74-106) mg/dL POC Glucose (70-99) mg/dL Calcium 8.2 L (8.5-10.1) mg/dL Magnesium (1.8-2.4) mg/dL Total Bilirubin 0.3 (0.2-1.0) mg/dL AST 42 H (15-37) IU/L ALT 41 (14-63) IU/L Alkaline Phosphatase 65 (46-116) U/L Troponin I < 0.050 (0.000-0.056) ng/mL B-Natriuretic Peptide (<100) PG/ML Total Protein 7.2 (6.4-8.2) g/dL Albumin 2.9 L (3.4-5.0) g/dL Globulin 4.3 H (2.6-4.0) g/dL Albumin/Globulin Ratio 0.7 L (0.9-1.6) Urine Color Urine Appearance Urine pH (5.0-8.0) Ur Specific [place] (1.001-1.035) Urine Protein (NEGATIVE) mg/dL Urine Glucose (UA) (NEGATIVE) mg/dL Urine Ketones (NEGATIVE) mg/dL Urine Occult Blood (NEGATIVE) Urine Nitrite (NEGATIVE) Urine Bilirubin (NEGATIVE) Urine Urobilinogen (<2.0) EU/dL Ur Leukocyte Esterase (NEGATIVE) Urine RBC (0-2/HPF) Urine WBC (0-5/HPF) Ur Epithelial Cells (NONE-FEW) Urine Bacteria (NEGATIVE) Urine Mucus (NONE-MOD) SARS-CoV-2 RNA (MARY JO) (NEGATIVE) 11/25/20 11/25/20 11/25/20 Range/Units 09:45 09:45 11:05 WBC (4.0-11.0) K/uL RBC (4.50-5.90) M/uL Hgb (13.0-17.0) g/dL Hct (38.0-50.0) % MCV (80.0-98.0) fL MCH (27.0-32.0) pg MCHC (31.0-37.0) g/dL RDW Std Deviation (28.0-62.0) fl RDW Coeff of Romina (11.0-15.0) % Plt Count (150-400) K/uL MPV (7.40-12.00) fL Neut % (Auto) (48.0-80.0) % Lymph % (Auto) (16.0-40.0) % [place] % (Auto) (0.0-15.0) % Eos % (Auto) (0.0-7.0) % Baso % (Auto) (0.0-1.5) % Neut # (Auto) (1.4-5.7) K/uL Lymph # (Auto) (0.6-2.4) K/uL [place] # (Auto) (0.0-0.8) K/uL Eos # (Auto) (0.0-0.7) K/uL Baso # (Auto) (0.0-0.1) K/uL Nucleated RBC % /100WBC Nucleated RBCs # K/uL D-Dimer, Quantitative (0.0-0.50) mg/L FEU Sodium (136-148) mmol/L Potassium (3.5-5.1) mmol/L Chloride (98-107) mmol/L Carbon Dioxide (21.0-32.0) mmol/L BUN (7.0-18.0) mg/dL Creatinine (0.8-1.3) mg/dL Est Cr Clr Drug Dosing mL/min Estimated GFR (MDRD) ml/min Glucose (74-106) mg/dL POC Glucose (70-99) mg/dL Calcium (8.5-10.1) mg/dL Magnesium 1.7 L (1.8-2.4) mg/dL Total Bilirubin (0.2-1.0) mg/dL AST (15-37) IU/L ALT (14-63) IU/L Alkaline Phosphatase (46-116) U/L Troponin I (0.000-0.056) ng/mL B-Natriuretic Peptide 28 (<100) PG/ML Total Protein (6.4-8.2) g/dL Albumin (3.4-5.0) g/dL Globulin (2.6-4.0) g/dL Albumin/Globulin Ratio (0.9-1.6) Urine Color Urine Appearance Urine pH (5.0-8.0) Ur Specific [place] (1.001-1.035) Urine Protein (NEGATIVE) mg/dL Urine Glucose (UA) (NEGATIVE) mg/dL Urine Ketones (NEGATIVE) mg/dL Urine Occult Blood (NEGATIVE) Urine Nitrite (NEGATIVE) Urine Bilirubin (NEGATIVE) Urine Urobilinogen (<2.0) EU/dL Ur Leukocyte Esterase (NEGATIVE) Urine RBC (0-2/HPF) Urine WBC (0-5/HPF) Ur Epithelial Cells (NONE-FEW) Urine Bacteria (NEGATIVE) Urine Mucus (NONE-MOD) SARS-CoV-2 RNA (MARY JO) POSITIVE H (NEGATIVE) 11/25/20 11/25/20 11/25/20 Range/Units 15:05 17:35 20:38 WBC (4.0-11.0) K/uL RBC (4.50-5.90) M/uL Hgb (13.0-17.0) g/dL Hct (38.0-50.0) % MCV (80.0-98.0) fL MCH (27.0-32.0) pg MCHC (31.0-37.0) g/dL RDW Std Deviation (28.0-62.0) fl RDW Coeff of Romina (11.0-15.0) % Plt Count (150-400) K/uL MPV (7.40-12.00) fL Neut % (Auto) (48.0-80.0) % Lymph % (Auto) (16.0-40.0) % [place] % (Auto) (0.0-15.0) % Eos % (Auto) (0.0-7.0) % Baso % (Auto) (0.0-1.5) % Neut # (Auto) (1.4-5.7) K/uL Lymph # (Auto) (0.6-2.4) K/uL [place] # (Auto) (0.0-0.8) K/uL Eos # (Auto) (0.0-0.7) K/uL Baso # (Auto) (0.0-0.1) K/uL Nucleated RBC % /100WBC Nucleated RBCs # K/uL D-Dimer, Quantitative (0.0-0.50) mg/L FEU Sodium (136-148) mmol/L Potassium (3.5-5.1) mmol/L Chloride (98-107) mmol/L Carbon Dioxide (21.0-32.0) mmol/L BUN (7.0-18.0) mg/dL Creatinine (0.8-1.3) mg/dL Est Cr Clr Drug Dosing mL/min Estimated GFR (MDRD) ml/min Glucose (74-106) mg/dL POC Glucose 189 H 203 H (70-99) mg/dL Calcium (8.5-10.1) mg/dL Magnesium (1.8-2.4) mg/dL Total Bilirubin (0.2-1.0) mg/dL AST (15-37) IU/L ALT (14-63) IU/L Alkaline Phosphatase (46-116) U/L Troponin I (0.000-0.056) ng/mL B-Natriuretic Peptide (<100) PG/ML Total Protein (6.4-8.2) g/dL Albumin (3.4-5.0) g/dL Globulin (2.6-4.0) g/dL Albumin/Globulin Ratio (0.9-1.6) Urine Color YELLOW Urine Appearance CLEAR Urine pH 5.5 (5.0-8.0) Ur Specific [place] 1.020 (1.001-1.035) Urine Protein TRACE H (NEGATIVE) mg/dL Urine Glucose (UA) NEGATIVE (NEGATIVE) mg/dL Urine Ketones TRACE H (NEGATIVE) mg/dL Urine Occult Blood NEGATIVE (NEGATIVE) Urine Nitrite NEGATIVE (NEGATIVE) Urine Bilirubin NEGATIVE (NEGATIVE) Urine Urobilinogen 0.2 (<2.0) EU/dL Ur Leukocyte Esterase NEGATIVE (NEGATIVE) Urine RBC NONE SEEN (0-2/HPF) Urine WBC 0-1 (0-5/HPF) Ur Epithelial Cells RARE (NONE-FEW) Urine Bacteria FEW (NEGATIVE) Urine Mucus LIGHT (NONE-MOD) SARS-CoV-2 RNA (MARY JO) (NEGATIVE) 11/26/20 11/26/20 11/26/20 Range/Units 05:35 05:35 06:36 WBC 5.49 (4.0-11.0) K/uL RBC 3.89 L (4.50-5.90) M/uL Hgb 12.9 L (13.0-17.0) g/dL Hct 39.1 (38.0-50.0) % MCV 100.5 H (80.0-98.0) fL MCH 33.2 H (27.0-32.0) pg MCHC 33.0 (31.0-37.0) g/dL RDW Std Deviation 51.7 (28.0-62.0) fl RDW Coeff of Romina 14 (11.0-15.0) % Plt Count 122 L (150-400) K/uL MPV 11.30 (7.40-12.00) fL Neut % (Auto) 78.3 (48.0-80.0) % Lymph % (Auto) 16.6 (16.0-40.0) % [place] % (Auto) 5.1 (0.0-15.0) % Eos % (Auto) 0.0 (0.0-7.0) % Baso % (Auto) 0.0 (0.0-1.5) % Neut # (Auto) 4.3 (1.4-5.7) K/uL Lymph # (Auto) 0.9 (0.6-2.4) K/uL [place] # (Auto) 0.3 (0.0-0.8) K/uL Eos # (Auto) 0.0 (0.0-0.7) K/uL Baso # (Auto) 0.0 (0.0-0.1) K/uL Nucleated RBC % 0.0 /100WBC Nucleated RBCs # 0 K/uL D-Dimer, Quantitative (0.0-0.50) mg/L FEU Sodium 140 (136-148) mmol/L Potassium 4.0 (3.5-5.1) mmol/L Chloride 107 (98-107) mmol/L Carbon Dioxide 24.1 (21.0-32.0) mmol/L BUN 19 H (7.0-18.0) mg/dL Creatinine 1.1 (0.8-1.3) mg/dL Est Cr Clr Drug Dosing 58.92 mL/min Estimated GFR (MDRD) > 60.0 ml/min Glucose 116 H (74-106) mg/dL POC Glucose 123 H (70-99) mg/dL Calcium 7.7 L (8.5-10.1) mg/dL Magnesium 2.3 (1.8-2.4) mg/dL Total Bilirubin 0.2 (0.2-1.0) mg/dL AST 34 (15-37) IU/L ALT 31 (14-63) IU/L Alkaline Phosphatase 58 (46-116) U/L Troponin I (0.000-0.056) ng/mL B-Natriuretic Peptide (<100) PG/ML Total Protein 6.5 (6.4-8.2) g/dL Albumin 2.6 L (3.4-5.0) g/dL Globulin 3.9 (2.6-4.0) g/dL Albumin/Globulin Ratio 0.7 L (0.9-1.6) Urine Color Urine Appearance Urine pH (5.0-8.0) Ur Specific [place] (1.001-1.035) Urine Protein (NEGATIVE) mg/dL Urine Glucose (UA) (NEGATIVE) mg/dL Urine Ketones (NEGATIVE) mg/dL Urine Occult Blood (NEGATIVE) Urine Nitrite (NEGATIVE) Urine Bilirubin (NEGATIVE) Urine Urobilinogen (<2.0) EU/dL Ur Leukocyte Esterase (NEGATIVE) Urine RBC (0-2/HPF) Urine WBC (0-5/HPF) Ur Epithelial Cells (NONE-FEW) Urine Bacteria (NEGATIVE) Urine Mucus (NONE-MOD) SARS-CoV-2 RNA (MARY JO) (NEGATIVE) [place] Results Last 24 Hours: Microbiology 11/25/20 11:05 Influenza Type A Antigen Screen - Final Nasopharyngeal Swab NEGATIVE INFLUENZA A VIRUS AG REFERENCE RANGE: NEGATIVE Influenza Type B Antigen Screen - Final NEGATIVE INFLUENZA B VIRUS AG REFERENCE RANGE: NEGATIVE Med Orders - Current: Current Medications Albuterol/Ipratropium (Albuterol/Ipratropium 4 Gm Inhalation [place]) 0 gm INH Q4H PRN PRN Reason: Dyspnea Alprazolam (Alprazolam 0.5 Mg Tab) 1 mg PO BID PRN PRN Reason: Anxiety Aspirin (Aspirin 81 Mg Tab.Ec) 81 mg PO DAILY [facility] Azithromycin (Azithromycin 250 Mg Tab) 500 mg PO Q24H [facility] Last Admin: 11/25/20 15:31 Dose: 500 mg Documented by: Dexamethasone (Dexamethasone 4 Mg Tab) 6 mg PO DAILY [facility] Dextrose/Water (50% Dextrose In Water 50 Ml Syringe) 50 ml IVPUSH ASDIRECTED PRN PRN Reason: Hypoglycemia Enoxaparin Sodium (Enoxaparin 40 Mg/0.4 Ml Syringe) 40 mg SUBCUT Q24H [facility] Last Admin: 11/25/20 15:30 Dose: 40 mg Documented by: Fluticasone Propionate (Fluticasone Propionate Nasal [place] 16 Gm Bottle) 0 gm NASBOTH DAILY [facility] Furosemide (Furosemide 40 Mg Tab) 40 mg PO DAILY [facility] Gabapentin (Gabapentin 300 Mg Cap) 600 mg PO TID [facility] Last Admin: 11/26/20 06:37 Dose: 600 mg Documented by: Glucagon (Glucagon,Human Recombinant 1 Mg Vial) 1 mg IM ASDIRECTED PRN PRN Reason: Hypoglycemia Remdesivir 100 mg/ Sodium (Chloride) 100 mls @ 100 mls/hr IV Q24H [facility] Stop: 11/29/20 15:29 Insulin Aspart (Insulin Aspart 100 Units/Ml 3 Ml Pen) 0 unit SUBCUT TIDAC [facility]; Protocol Last Admin: 11/26/20 07:06 Dose: Not Given Documented by: Insulin Glargine (Insulin Glargine,Human Rec. Analog 100 Units/Ml 3 Ml Pen) 42 units SUBCUT BEDTIME [facility] Last Admin: 11/25/20 20:39 Dose: 42 units Documented by: Lisinopril (Lisinopril 5 Mg Tab) 5 mg PO DAILY [facility] Omeprazole (Omeprazole 20 Mg Cap.Cr) 20 mg PO ACBREAKFAST [facility] Last Admin: 11/26/20 06:37 Dose: 20 mg Documented by: Primidone (Primidone 250 Mg Tab) 500 mg PO BID [facility] Last Admin: 11/25/20 21:32 Dose: 500 mg Documented by: Fluticasone/Salmeterol (Fluticasone/Salmeterol 100-50 Mcg Inhalation Powder 14/Diskus) 1 puff INH BID [facility] Last Admin: 11/25/20 20:38 Dose: 1 puff Documented by: Simvastatin (Simvastatin 40 Mg Tab) 40 mg PO BEDTIME [facility] Last Admin: 11/25/20 20:37 Dose: 40 mg Documented by: Sodium Chloride (Sodium Chloride 0.9% 10 Ml Syringe) 10 ml FLUSH ASDIRECTED PRN PRN Reason: Keep Vein Open Last Admin: 11/25/20 10:49 Dose: 10 ml Documented by: Sodium Chloride (Sodium Chloride 0.9% 2.5 Ml Syringe) 2.5 ml FLUSH ASDIRECTED PRN PRN Reason: Keep Vein Open Last Admin: 11/25/20 10:49 Dose: 2.5 ml Documented by: Tamsulosin HCl (Tamsulosin 0.4 Mg Cap.Er) 0.4 mg PO DAILY [facility] Topiramate (Topiramate 100 Mg Tab) 100 mg PO BID [facility] Last Admin: 11/25/20 20:37 Dose: 100 mg Documented by: Discontinued Medications Albuterol/Ipratropium (Albuterol/Ipratropium 3.0-0.5 Mg/3 Ml Neb Soln) 3 ml NEB ONETIME ONE Stop: 11/25/20 10:27 Last Admin: 11/25/20 10:49 Dose: 3 ml Documented by: Gabapentin (Gabapentin 300 Mg Cap) 600 mg PO TID PRN PRN Reason: PAIN Magnesium Sulfate 4 gm/ Premix 100 mls @ 25 mls/hr IV ONETIME ONE Stop: 11/25/20 15:09 Last Admin: 11/25/20 12:37 Dose: 25 mls/hr Documented by: Remdesivir 200 mg/ Sodium (Chloride) 250 mls @ 250 mls/hr IV ONETIME ONE Stop: 11/25/20 14:17 Last Admin: 11/25/20 17:41 Dose: Not Given Documented by: Remdesivir 200 mg/ Sodium (Chloride) 250 mls @ 250 mls/hr IV ONETIME ONE Stop: 11/25/20 18:59 Last Admin: 11/25/20 17:37 Dose: 250 mls/hr Documented by: Iopamidol (Iopamidol 755 Mg/Ml 500 Ml Multipack Bottle) 80 ml IVPUSH ONETIME STA Stop: 11/25/20 12:06 Last Admin: 11/25/20 12:06 Dose: 80 ml Documented by: Methylprednisolone Sodium Succinate (Methylprednisolone Sodium Succinate 125 Mg/2 Ml Sdv) 125 mg IVPUSH ONETIME ONE Stop: 11/25/20 10:27 Last Admin: 11/25/20 10:49 Dose: 125 mg Documented by: - Exam Quality Assessment: Supplemental Oxygen General: Alert, Oriented, Cooperative HEENT: Pupils Equal, Pupils Reactive Neck: Supple. No: JVD Lungs: Decreased Breath Sounds, Rhonchi, Wheezing. No: Normal Respiratory Effort (dyspnea on exertion and speech) Cardiovascular: Regular Rate, Regular Rhythm GI/Abdominal Exam: Normal Bowel Sounds, Soft, Non-Tender Back Exam: Normal Inspection, Full Range of Motion Extremities: Normal Inspection, Normal Range of Motion, Non-Tender Skin: Warm, Dry Neurological: No New Focal Deficit Psy/Mental Status: Alert, Normal Affect, Normal Mood - Patient Data Lab Results Last 24 hrs: Laboratory Results - last 24 hr 11/25/20 11/25/20 11/25/20 Range/Units 09:45 09:45 09:45 WBC 4.90 (4.0-11.0) K/uL RBC 4.27 L (4.50-5.90) M/uL Hgb 14.3 (13.0-17.0) g/dL Hct 43.3 (38.0-50.0) % MCV 101.4 H (80.0-98.0) fL MCH 33.5 H (27.0-32.0) pg MCHC 33.0 (31.0-37.0) g/dL RDW Std Deviation 52.5 (28.0-62.0) fl RDW Coeff of Romina 14 (11.0-15.0) % Plt Count 124 L (150-400) K/uL MPV 11.70 (7.40-12.00) fL Neut % (Auto) 75.9 (48.0-80.0) % Lymph % (Auto) 19.2 (16.0-40.0) % [place] % (Auto) 4.9 (0.0-15.0) % Eos % (Auto) 0.0 (0.0-7.0) % Baso % (Auto) 0.0 (0.0-1.5) % Neut # (Auto) 3.7 (1.4-5.7) K/uL Lymph # (Auto) 0.9 (0.6-2.4) K/uL [place] # (Auto) 0.2 (0.0-0.8) K/uL Eos # (Auto) 0.0 (0.0-0.7) K/uL Baso # (Auto) 0.0 (0.0-0.1) K/uL Nucleated RBC % 0.0 /100WBC Nucleated RBCs # 0 K/uL D-Dimer, Quantitative 0.76 H (0.0-0.50) mg/L FEU Sodium 139 (136-148) mmol/L Potassium 4.1 (3.5-5.1) mmol/L Chloride 104 (98-107) mmol/L Carbon Dioxide 24.8 (21.0-32.0) mmol/L BUN 21 H (7.0-18.0) mg/dL Creatinine 1.1 (0.8-1.3) mg/dL Est Cr Clr Drug Dosing 58.92 mL/min Estimated GFR (MDRD) > 60.0 ml/min Glucose 114 H (74-106) mg/dL POC Glucose (70-99) mg/dL Calcium 8.2 L (8.5-10.1) mg/dL Magnesium (1.8-2.4) mg/dL Total Bilirubin 0.3 (0.2-1.0) mg/dL AST 42 H (15-37) IU/L ALT 41 (14-63) IU/L Alkaline Phosphatase 65 (46-116) U/L Troponin I < 0.050 (0.000-0.056) ng/mL B-Natriuretic Peptide (<100) PG/ML Total Protein 7.2 (6.4-8.2) g/dL Albumin 2.9 L (3.4-5.0) g/dL Globulin 4.3 H (2.6-4.0) g/dL Albumin/Globulin Ratio 0.7 L (0.9-1.6) Urine Color Urine Appearance Urine pH (5.0-8.0) Ur Specific [place] (1.001-1.035) Urine Protein (NEGATIVE) mg/dL Urine Glucose (UA) (NEGATIVE) mg/dL Urine Ketones (NEGATIVE) mg/dL Urine Occult Blood (NEGATIVE) Urine Nitrite (NEGATIVE) Urine Bilirubin (NEGATIVE) Urine Urobilinogen (<2.0) EU/dL Ur Leukocyte Esterase (NEGATIVE) Urine RBC (0-2/HPF) Urine WBC (0-5/HPF) Ur Epithelial Cells (NONE-FEW) Urine Bacteria (NEGATIVE) Urine Mucus (NONE-MOD) SARS-CoV-2 RNA (MARY JO) (NEGATIVE) 11/25/20 11/25/20 11/25/20 Range/Units 09:45 09:45 11:05 WBC (4.0-11.0) K/uL RBC (4.50-5.90) M/uL Hgb (13.0-17.0) g/dL Hct (38.0-50.0) % MCV (80.0-98.0) fL MCH (27.0-32.0) pg MCHC (31.0-37.0) g/dL RDW Std Deviation (28.0-62.0) fl RDW Coeff of Romina (11.0-15.0) % Plt Count (150-400) K/uL MPV (7.40-12.00) fL Neut % (Auto) (48.0-80.0) % Lymph % (Auto) (16.0-40.0) % [place] % (Auto) (0.0-15.0) % Eos % (Auto) (0.0-7.0) % Baso % (Auto) (0.0-1.5) % Neut # (Auto) (1.4-5.7) K/uL Lymph # (Auto) (0.6-2.4) K/uL [place] # (Auto) (0.0-0.8) K/uL Eos # (Auto) (0.0-0.7) K/uL Baso # (Auto) (0.0-0.1) K/uL Nucleated RBC % /100WBC Nucleated RBCs # K/uL D-Dimer, Quantitative (0.0-0.50) mg/L FEU Sodium (136-148) mmol/L Potassium (3.5-5.1) mmol/L Chloride (98-107) mmol/L Carbon Dioxide (21.0-32.0) mmol/L BUN (7.0-18.0) mg/dL Creatinine (0.8-1.3) mg/dL Est Cr Clr Drug Dosing mL/min Estimated GFR (MDRD) ml/min Glucose (74-106) mg/dL POC Glucose (70-99) mg/dL Calcium (8.5-10.1) mg/dL Magnesium 1.7 L (1.8-2.4) mg/dL Total Bilirubin (0.2-1.0) mg/dL AST (15-37) IU/L ALT (14-63) IU/L Alkaline Phosphatase (46-116) U/L Troponin I (0.000-0.056) ng/mL B-Natriuretic Peptide 28 (<100) PG/ML Total Protein (6.4-8.2) g/dL Albumin (3.4-5.0) g/dL Globulin (2.6-4.0) g/dL Albumin/Globulin Ratio (0.9-1.6) Urine Color Urine Appearance Urine pH (5.0-8.0) Ur Specific [place] (1.001-1.035) Urine Protein (NEGATIVE) mg/dL Urine Glucose (UA) (NEGATIVE) mg/dL Urine Ketones (NEGATIVE) mg/dL Urine Occult Blood (NEGATIVE) Urine Nitrite (NEGATIVE) Urine Bilirubin (NEGATIVE) Urine Urobilinogen (<2.0) EU/dL Ur Leukocyte Esterase (NEGATIVE) Urine RBC (0-2/HPF) Urine WBC (0-5/HPF) Ur Epithelial Cells (NONE-FEW) Urine Bacteria (NEGATIVE) Urine Mucus (NONE-MOD) SARS-CoV-2 RNA (MARY JO) POSITIVE H (NEGATIVE) 11/25/20 11/25/20 11/25/20 Range/Units 15:05 17:35 20:38 WBC (4.0-11.0) K/uL RBC (4.50-5.90) M/uL Hgb (13.0-17.0) g/dL Hct (38.0-50.0) % MCV (80.0-98.0) fL MCH (27.0-32.0) pg MCHC (31.0-37.0) g/dL RDW Std Deviation (28.0-62.0) fl RDW Coeff of Romina (11.0-15.0) % Plt Count (150-400) K/uL MPV (7.40-12.00) fL Neut % (Auto) (48.0-80.0) % Lymph % (Auto) (16.0-40.0) % [place] % (Auto) (0.0-15.0) % Eos % (Auto) (0.0-7.0) % Baso % (Auto) (0.0-1.5) % Neut # (Auto) (1.4-5.7) K/uL Lymph # (Auto) (0.6-2.4) K/uL [place] # (Auto) (0.0-0.8) K/uL Eos # (Auto) (0.0-0.7) K/uL Baso # (Auto) (0.0-0.1) K/uL Nucleated RBC % /100WBC Nucleated RBCs # K/uL D-Dimer, Quantitative (0.0-0.50) mg/L FEU Sodium (136-148) mmol/L Potassium (3.5-5.1) mmol/L Chloride (98-107) mmol/L Carbon Dioxide (21.0-32.0) mmol/L BUN (7.0-18.0) mg/dL Creatinine (0.8-1.3) mg/dL Est Cr Clr Drug Dosing mL/min Estimated GFR (MDRD) ml/min Glucose (74-106) mg/dL POC Glucose 189 H 203 H (70-99) mg/dL Calcium (8.5-10.1) mg/dL Magnesium (1.8-2.4) mg/dL Total Bilirubin (0.2-1.0) mg/dL AST (15-37) IU/L ALT (14-63) IU/L Alkaline Phosphatase (46-116) U/L Troponin I (0.000-0.056) ng/mL B-Natriuretic Peptide (<100) PG/ML Total Protein (6.4-8.2) g/dL Albumin (3.4-5.0) g/dL Globulin (2.6-4.0) g/dL Albumin/Globulin Ratio (0.9-1.6) Urine Color YELLOW Urine Appearance CLEAR Urine pH 5.5 (5.0-8.0) Ur Specific [place] 1.020 (1.001-1.035) Urine Protein TRACE H (NEGATIVE) mg/dL Urine Glucose (UA) NEGATIVE (NEGATIVE) mg/dL Urine Ketones TRACE H (NEGATIVE) mg/dL Urine Occult Blood NEGATIVE (NEGATIVE) Urine Nitrite NEGATIVE (NEGATIVE) Urine Bilirubin NEGATIVE (NEGATIVE) Urine Urobilinogen 0.2 (<2.0) EU/dL Ur Leukocyte Esterase NEGATIVE (NEGATIVE) Urine RBC NONE SEEN (0-2/HPF) Urine WBC 0-1 (0-5/HPF) Ur Epithelial Cells RARE (NONE-FEW) Urine Bacteria FEW (NEGATIVE) Urine Mucus LIGHT (NONE-MOD) SARS-CoV-2 RNA (MARY JO) (NEGATIVE) 11/26/20 11/26/20 11/26/20 Range/Units 05:35 05:35 06:36 WBC 5.49 (4.0-11.0) K/uL RBC 3.89 L (4.50-5.90) M/uL Hgb 12.9 L (13.0-17.0) g/dL Hct 39.1 (38.0-50.0) % MCV 100.5 H (80.0-98.0) fL MCH 33.2 H (27.0-32.0) pg MCHC 33.0 (31.0-37.0) g/dL RDW Std Deviation 51.7 (28.0-62.0) fl RDW Coeff of [place] 14 (11.0-15.0) % Plt Count 122 L (150-400) K/uL MPV 11.30 (7.40-12.00) fL Neut % (Auto) 78.3 (48.0-80.0) % Lymph % (Auto) 16.6 (16.0-40.0) % [place] % (Auto) 5.1 (0.0-15.0) % Eos % (Auto) 0.0 (0.0-7.0) % Baso % (Auto) 0.0 (0.0-1.5) % Neut # (Auto) 4.3 (1.4-5.7) K/uL Lymph # (Auto) 0.9 (0.6-2.4) K/uL [place] # (Auto) 0.3 (0.0-0.8) K/uL Eos # (Auto) 0.0 (0.0-0.7) K/uL Baso # (Auto) 0.0 (0.0-0.1) K/uL Nucleated RBC % 0.0 /100WBC Nucleated RBCs # 0 K/uL D-Dimer, Quantitative (0.0-0.50) mg/L FEU Sodium 140 (136-148) mmol/L Potassium 4.0 (3.5-5.1) mmol/L Chloride 107 (98-107) mmol/L Carbon Dioxide 24.1 (21.0-32.0) mmol/L BUN 19 H (7.0-18.0) mg/dL Creatinine 1.1 (0.8-1.3) mg/dL Est Cr Clr Drug Dosing 58.92 mL/min Estimated GFR (MDRD) > 60.0 ml/min Glucose 116 H (74-106) mg/dL POC Glucose 123 H (70-99) mg/dL Calcium 7.7 L (8.5-10.1) mg/dL Magnesium 2.3 (1.8-2.4) mg/dL Total Bilirubin 0.2 (0.2-1.0) mg/dL AST 34 (15-37) IU/L ALT 31 (14-63) IU/L Alkaline Phosphatase 58 (46-116) U/L Troponin I (0.000-0.056) ng/mL B-Natriuretic Peptide (<100) PG/ML Total Protein 6.5 (6.4-8.2) g/dL Albumin 2.6 L (3.4-5.0) g/dL Globulin 3.9 (2.6-4.0) g/dL Albumin/Globulin Ratio 0.7 L (0.9-1.6) Urine Color Urine Appearance Urine pH (5.0-8.0) Ur Specific [place] (1.001-1.035) Urine Protein (NEGATIVE) mg/dL Urine Glucose (UA) (NEGATIVE) mg/dL Urine Ketones (NEGATIVE) mg/dL Urine Occult Blood (NEGATIVE) Urine Nitrite (NEGATIVE) Urine Bilirubin (NEGATIVE) Urine Urobilinogen (<2.0) EU/dL Ur Leukocyte Esterase (NEGATIVE) Urine RBC (0-2/HPF) Urine WBC (0-5/HPF) Ur Epithelial Cells (NONE-FEW) Urine Bacteria (NEGATIVE) Urine Mucus (NONE-MOD) SARS-CoV-2 RNA (MARY JO) (NEGATIVE) Result Diagrams: 11/26/20 05:35 11/26/20 05:35 [place] Results Last 24 hrs: Microbiology 11/25/20 11:05 Influenza Type A Antigen Screen - Final Nasopharyngeal Swab NEGATIVE INFLUENZA A VIRUS AG REFERENCE RANGE: NEGATIVE Influenza Type B Antigen Screen - Final NEGATIVE INFLUENZA B VIRUS AG REFERENCE RANGE: NEGATIVE Sepsis Event Note - Evaluation Sepsis Screening Result: No Definite Risk - Focused Exam Vital Signs: Vital Signs Temp Pulse Resp BP Pulse Ox 11/26/20 04:19 98.7 F 97 18 145/65 H 92 L 11/25/20 23:43 100 F 93 20 157/67 H 94 L 11/25/20 20:33 97.7 F 77 22 H 147/57 H 96 - Problem List & Annotations (1) Acute respiratory failure with hypoxia SNOMED Code(s): 33289107, 380135609 Code(s): J96.01 - ACUTE RESPIRATORY FAILURE WITH HYPOXIA Status: Acute Current Visit: Yes (2) COVID-19 virus infection SNOMED Code(s): 221615567 Code(s): U07.1 - COVID-19 Status: Acute Current Visit: Yes (3) COPD exacerbation SNOMED Code(s): 558815160 Code(s): J44.1 - CHRONIC OBSTRUCTIVE PULMONARY DISEASE W (ACUTE) EXACERBATION Status: Acute Current Visit: Yes (4) CAD (coronary artery disease) SNOMED Code(s): 00973494 Code(s): I25.10 - ATHSCL HEART DISEASE OF [place] CORONARY ARTERY W/O ANG PCTRS Status: Chronic Priority: Medium Current Visit: No Qualifiers: [place] vs. transplanted heart: [place] heart Associated angina: without angina (5) DM type 2 (diabetes mellitus, type 2) SNOMED Code(s): 30047001 Code(s): E11.9 - TYPE 2 DIABETES MELLITUS WITHOUT COMPLICATIONS Status: Chronic Priority: Medium Current Visit: No Qualifiers: Diabetes mellitus complication status: with other specified complication Qualified Code(s): E11.69 - Type 2 diabetes mellitus with other specified complication (6) Dyslipidemia SNOMED Code(s): 076772559 Code(s): E78.5 - HYPERLIPIDEMIA, UNSPECIFIED Status: Chronic Priority: Low Current Visit: No (7) HTN (hypertension), benign SNOMED Code(s): 39372825 Code(s): I10 - ESSENTIAL (PRIMARY) HYPERTENSION Status: Chronic Priority: Low Current Visit: No (8) WILMA (obstructive sleep apnea) SNOMED Code(s): 71426407 Code(s): G47.33 - OBSTRUCTIVE SLEEP APNEA (ADULT) (PEDIATRIC) Status: Chronic Priority: Medium Current Visit: No Annotation/Comment:: noncomp liant with cpap (9) Obesity SNOMED Code(s): 893924263, 281973090 Code(s): E66.9 - OBESITY, UNSPECIFIED Status: Chronic Priority: Low Current Visit: No Qualifiers: Obesity type: due to excess calories (10) Congestive heart failure SNOMED Code(s): 32887297 Code(s): I50.9 - HEART FAILURE, UNSPECIFIED Status: Chronic Current Visit: No Qualifiers: Heart failure type: systolic Heart failure chronicity: chronic Qualified Code(s): I50.22 - Chronic systolic (congestive) heart failure (11) Benign familial tremor SNOMED Code(s): 224280412 Code(s): G25.0 - ESSENTIAL TREMOR Status: Chronic Current Visit: Yes - Problem List Review Problem List Initiated/Reviewed/Updated: Yes - My Orders Last 24 Hours: My Active Orders 11/25/20 15:28 Blood Glucose Check, Bedside [RC] TIDAC Dextrose 50% in Water 50 ml IVPUSH ASDIRECTED PRN Glucagon,Human Recombinant [GlucaGen] 1 mg IM ASDIRECTED PRN 11/25/20 17:00 Insulin Aspart [NovoLOG] See Protocol SUBCUT TIDAC 11/25/20 21:00 Primidone [Mysoline] 500 mg PO BID Topiramate [Topamax] 100 mg PO BID 11/25/20 22:00 Gabapentin [Neurontin] 600 mg PO TID 11/26/20 09:00 Aspirin [Halfprin] 81 mg PO DAILY Fluticasone Propionate [Flonase] 0 gm NASBOTH DAILY Furosemide [Lasix] 40 mg PO DAILY Tamsulosin [Flomax] 0.4 mg PO DAILY - Plan Plan:: 75 yo male admitted for acute hypoxic respiratory failure,COVID pneumonia, and COPD exacerbation 1. Acute hypoxic respiratory failure - Combination of COVID 19 pna and COPD exacerbation - Continue oxygen to keep sats >90%, wean as possible 2. COVID 19 pneumonia - Encourage IS, Acapella use - Combivent change to scheduled dosing due to wheezing - Oxygen as above - Continue Dexamethasone 6 mg po daily - Continue Remdesivir - Lovenox daily - Robitussin PRN for cough - Encourage up to chair and ambulation 3. COPD exacerbation - Steroids as above - Continue Advair - Combivent inhaler - Continue Azithromycin 4. Dm Type 2 - BS controlled - Monitor with steroid use - Continue Lantus 42 units bedtime - Med SSI with meals - Check BS TIDAC - ADA diet 5. Hx CAD, CHF, HTN, HLD - Continue Lasix, Lisinopril, ASA and statin - Monitor daily weights, strict I/O - ECHO in 2016 revealed severely decrease EF and LV hypokinesis 6. Familial tremor - Continue Topamax and Primidone VTE prophylaxis: Lovenox GI prophylaxis: Omeprazole CODE STATUS: Full Code Dispo: 2-3 days pending improvement and completion of Remdesivir course.
[2020-11-26] MEDS: Fluticasone/Salmeterol 100-50 MCG Inhalation Powder 14/Diskus INH SCH ×2 (08:40→21:03)
[2020-11-26] MEDS ORDERED: guaiFENesin 100 MG/5 ML Soln 10 ML UD Cup PO PRN (08:50)
[2020-11-26] MEDS ORDERED: Acetaminophen 325 MG Tab PO PRN (08:55)
[2020-11-26] MEDS ORDERED: Ondansetron 4 MG/2 ML SDV IVPUSH PRN (08:55)
[2020-11-26] MEDS: Topiramate 100 MG Tab PO SCH ×2 (09:47→21:03)
[2020-11-26] MEDS: Furosemide 40 MG Tab PO SCH (09:47)
[2020-11-26] MEDS: Aspirin 81 MG Tab.EC PO SCH (09:47)
[2020-11-26] MEDS: Lisinopril 5 MG Tab PO SCH (09:48)
[2020-11-26] MEDS: Dexamethasone 4 MG Tab PO SCH (09:49)
[2020-11-26] MEDS: Tamsulosin 0.4 MG Cap.ER PO SCH (09:49)
[2020-11-26] MEDS: Fluticasone Propionate Nasal Spray 16 GM Bottle NASBOTH SCH (09:49)
[2020-11-26] MEDS: Primidone 250 MG Tab PO SCH ×2 (09:50→21:04)
[2020-11-26] MEDS: Albuterol/Ipratropium 4 GM Inhalation Spray INH SCH ×3 (14:12→21:45)
[2020-11-26] MEDS: Azithromycin 250 MG Tab PO SCH (14:51)
[2020-11-26] MEDS: Enoxaparin 40 MG/0.4 ML Syringe SUBCUT SCH (14:52)
[2020-11-26] MEDS: REMDESIVIR 100 MG in Sodium Chloride 0.9% 100 ML IV SCH (14:52)
[2020-11-26] MEDS: Simvastatin 40 MG Tab PO SCH (21:02)
[2020-11-26] MEDS: Insulin Glargine,Human Rec. Analog 100 Units/ML 3 ML Pen SUBCUT SCH (21:43)
[2020-11-27] MEDS: Albuterol/Ipratropium 4 GM Inhalation Spray INH SCH ×6 (01:51→21:28)
[2020-11-27 06:22] LABS: BLOOD UREA NITROGEN,BUN 21 mg/dL (7.0-18.0); CARBON DIOXIDE,CO2 25.5 mmol/L (21.0-32.0); CHLORIDE,CL 105 mmol/L (98-107); GLUCOSE RANDOM 116 mg/dL (74-106); POTASSIUM,K 3.6 mmol/L (3.5-5.1); SODIUM,NA 140 mmol/L (136-148)
[2020-11-27] MEDS: Gabapentin 300 MG Cap PO SCH ×3 (06:36→21:27)
[2020-11-27] MEDS: Insulin Aspart 100 Units/ML 3 ML Pen SUBCUT SCH ×3 (06:55→17:43)
[2020-11-27] MEDS: Omeprazole 20 MG Cap.CR PO SCH (07:13)
--- NOTE | 2020-11-27 07:54 | PCM.PN ---
- General Info Date of Service: 11/27/20 Admission Dx/Problem (Free Text): Admission Diagnosis/Problem Admission Diagnosis/Problem Hypoxia Subjective Update: Feeling improved today. Reports less shortness of breath and sinus congestion. He slept really well last night. Denies any chest pain abdominal pain no diarrhea. He is eating and drinking appropriately. He reports less wheezing. Functional Status: Reports: Pain Controlled, Tolerating Diet, Ambulating, Urinating - Review of Systems General: Reports: Malaise (Much improved) Pulmonary: Reports: Shortness of Breath (Much improved), Cough, Sputum Cardiovascular: Reports: No Symptoms. Denies: Chest Pain Gastrointestinal: Reports: No Symptoms. Denies: Abdominal Pain, Nausea, Vomiting Genitourinary: Reports: No Symptoms Musculoskeletal: Reports: No Symptoms Skin: Reports: No Symptoms Neurological: Reports: No Symptoms Psychiatric: Reports: No Symptoms - Patient Data Vitals - Most Recent: Last Vital Signs Temp 97.5 F 11/27/20 03:55 Pulse 106 H 11/27/20 03:55 Resp 20 11/27/20 03:55 BP 132/61 11/27/20 03:55 Pulse Ox 94 L 11/27/20 03:55 Weight - Most Recent: 152.044 kg I&O - Last 24 Hours: Intake & Output 11/26/20 11/27/20 11/27/20 22:59 06:59 14:59 Intake Total 980 500 Output Total 500 450 Balance 480 50 Lab Results Last 24 Hours: Laboratory Results - last 24 hr 11/26/20 11/26/20 11/26/20 Range/Units 12:30 17:54 21:00 WBC (4.0-11.0) K/uL RBC (4.50-5.90) M/uL Hgb (13.0-17.0) g/dL Hct (38.0-50.0) % MCV (80.0-98.0) fL MCH (27.0-32.0) pg MCHC (31.0-37.0) g/dL RDW Std Deviation (28.0-62.0) fl RDW Coeff of Romina (11.0-15.0) % Plt Count (150-400) K/uL MPV (7.40-12.00) fL Neut % (Auto) (48.0-80.0) % Lymph % (Auto) (16.0-40.0) % Grand % (Auto) (0.0-15.0) % Eos % (Auto) (0.0-7.0) % Baso % (Auto) (0.0-1.5) % Neut # (Auto) (1.4-5.7) K/uL Lymph # (Auto) (0.6-2.4) K/uL Grand # (Auto) (0.0-0.8) K/uL Eos # (Auto) (0.0-0.7) K/uL Baso # (Auto) (0.0-0.1) K/uL Nucleated RBC % /100WBC Nucleated RBCs # K/uL Sodium (136-148) mmol/L Potassium (3.5-5.1) mmol/L Chloride (98-107) mmol/L Carbon Dioxide (21.0-32.0) mmol/L BUN (7.0-18.0) mg/dL Creatinine (0.8-1.3) mg/dL Est Cr Clr Drug Dosing mL/min Estimated GFR (MDRD) ml/min Glucose (74-106) mg/dL POC Glucose 196 H 189 H 188 H (70-99) mg/dL Calcium (8.5-10.1) mg/dL Magnesium (1.8-2.4) mg/dL Total Bilirubin (0.2-1.0) mg/dL AST (15-37) IU/L ALT (14-63) IU/L Alkaline Phosphatase (46-116) U/L Total Protein (6.4-8.2) g/dL Albumin (3.4-5.0) g/dL Globulin (2.6-4.0) g/dL Albumin/Globulin Ratio (0.9-1.6) 11/27/20 11/27/20 11/27/20 Range/Units 05:50 05:50 06:33 WBC 3.87 L (4.0-11.0) K/uL RBC 3.82 L (4.50-5.90) M/uL Hgb 12.6 L (13.0-17.0) g/dL Hct 38.5 (38.0-50.0) % MCV 100.8 H (80.0-98.0) fL MCH 33.0 H (27.0-32.0) pg MCHC 32.7 (31.0-37.0) g/dL RDW Std Deviation 51.9 (28.0-62.0) fl RDW Coeff of Romina 14 (11.0-15.0) % Plt Count 132 L (150-400) K/uL MPV 11.40 (7.40-12.00) fL Neut % (Auto) 67.6 (48.0-80.0) % Lymph % (Auto) 23.8 (16.0-40.0) % Grand % (Auto) 8.3 (0.0-15.0) % Eos % (Auto) 0.0 (0.0-7.0) % Baso % (Auto) 0.3 (0.0-1.5) % Neut # (Auto) 2.6 (1.4-5.7) K/uL Lymph # (Auto) 0.9 (0.6-2.4) K/uL Grand # (Auto) 0.3 (0.0-0.8) K/uL Eos # (Auto) 0.0 (0.0-0.7) K/uL Baso # (Auto) 0.0 (0.0-0.1) K/uL Nucleated RBC % 0.0 /100WBC Nucleated RBCs # 0 K/uL Sodium 140 (136-148) mmol/L Potassium 3.6 (3.5-5.1) mmol/L Chloride 105 (98-107) mmol/L Carbon Dioxide 25.5 (21.0-32.0) mmol/L BUN 21 H (7.0-18.0) mg/dL Creatinine 1.0 (0.8-1.3) mg/dL Est Cr Clr Drug Dosing 64.81 mL/min Estimated GFR (MDRD) > 60.0 ml/min Glucose 116 H (74-106) mg/dL POC Glucose 139 H (70-99) mg/dL Calcium 7.5 L (8.5-10.1) mg/dL Magnesium 2.0 (1.8-2.4) mg/dL Total Bilirubin 0.3 (0.2-1.0) mg/dL AST 29 (15-37) IU/L ALT 28 (14-63) IU/L Alkaline Phosphatase 51 (46-116) U/L Total Protein 6.2 L (6.4-8.2) g/dL Albumin 2.4 L (3.4-5.0) g/dL Globulin 3.8 (2.6-4.0) g/dL Albumin/Globulin Ratio 0.6 L (0.9-1.6) Med Orders - Current: Current Medications Acetaminophen (Acetaminophen 325 Mg Tab) 650 mg PO Q4H PRN PRN Reason: Pain/Fever Albuterol/Ipratropium (Albuterol/Ipratropium 4 Gm Inhalation [place]) 0 gm INH Q4HRRT [facility] Last Admin: 11/27/20 05:47 Dose: 1 puff Documented by: Alprazolam (Alprazolam 0.5 Mg Tab) 1 mg PO BID PRN PRN Reason: Anxiety Aspirin (Aspirin 81 Mg Tab.Ec) 81 mg PO DAILY [facility] Last Admin: 11/26/20 09:47 Dose: 81 mg Documented by: Azithromycin (Azithromycin 250 Mg Tab) 500 mg PO Q24H [facility] Last Admin: 11/26/20 14:51 Dose: 500 mg Documented by: Dexamethasone (Dexamethasone 4 Mg Tab) 6 mg PO DAILY [facility] Last Admin: 11/26/20 09:49 Dose: 6 mg Documented by: Dextrose/Water (50% Dextrose In Water 50 Ml Syringe) 50 ml IVPUSH ASDIRECTED PRN PRN Reason: Hypoglycemia Enoxaparin Sodium (Enoxaparin 40 Mg/0.4 Ml Syringe) 40 mg SUBCUT Q24H [facility] Last Admin: 11/26/20 14:52 Dose: 40 mg Documented by: Fluticasone Propionate (Fluticasone Propionate Nasal [place] 16 Gm Bottle) 0 gm NASBOTH DAILY [facility] Last Admin: 11/26/20 09:49 Dose: 2 sprays Documented by: Furosemide (Furosemide 40 Mg Tab) 40 mg PO DAILY [facility] Last Admin: 11/26/20 09:47 Dose: 40 mg Documented by: Gabapentin (Gabapentin 300 Mg Cap) 600 mg PO TID [facility] Last Admin: 11/27/20 06:36 Dose: 600 mg Documented by: Glucagon (Glucagon,Human Recombinant 1 Mg Vial) 1 mg IM ASDIRECTED PRN PRN Reason: Hypoglycemia Guaifenesin (Guaifenesin 100 Mg/5 Ml Soln 10 Ml Ud Cup) 200 mg PO Q4H PRN PRN Reason: Cough Remdesivir 100 mg/ Sodium (Chloride) 100 mls @ 100 mls/hr IV Q24H [facility] Stop: 11/29/20 15:29 Last Admin: 11/26/20 14:52 Dose: 100 mls/hr Documented by: Insulin Aspart (Insulin Aspart 100 Units/Ml 3 Ml Pen) 0 unit SUBCUT TIDAC [facility]; Protocol Last Admin: 11/27/20 06:55 Dose: Not Given Documented by: Insulin Glargine (Insulin Glargine,Human Rec. Analog 100 Units/Ml 3 Ml Pen) 42 units SUBCUT BEDTIME [facility] Last Admin: 11/26/20 21:43 Dose: 42 units Documented by: Lisinopril (Lisinopril 5 Mg Tab) 5 mg PO DAILY [facility] Last Admin: 11/26/20 09:48 Dose: 5 mg Documented by: Omeprazole (Omeprazole 20 Mg Cap.Cr) 20 mg PO ACBREAKFAST [facility] Last Admin: 11/27/20 07:13 Dose: 20 mg Documented by: Ondansetron HCl (Ondansetron 4 Mg/2 Ml Sdv) 4 mg IVPUSH Q4H PRN PRN Reason: Nausea Primidone (Primidone 250 Mg Tab) 500 mg PO BID [facility] Last Admin: 11/26/20 21:04 Dose: 500 mg Documented by: Fluticasone/Salmeterol (Fluticasone/Salmeterol 100-50 Mcg Inhalation Powder 14/Diskus) 1 puff INH BID [facility] Last Admin: 11/26/20 21:03 Dose: 1 puff Documented by: Simvastatin (Simvastatin 40 Mg Tab) 40 mg PO BEDTIME [facility] Last Admin: 11/26/20 21:02 Dose: 40 mg Documented by: Sodium Chloride (Sodium Chloride 0.9% 10 Ml Syringe) 10 ml FLUSH ASDIRECTED PRN PRN Reason: Keep Vein Open Last Admin: 11/25/20 10:49 Dose: 10 ml Documented by: Sodium Chloride (Sodium Chloride 0.9% 2.5 Ml Syringe) 2.5 ml FLUSH ASDIRECTED PRN PRN Reason: Keep Vein Open Last Admin: 11/25/20 10:49 Dose: 2.5 ml Documented by: Tamsulosin HCl (Tamsulosin 0.4 Mg Cap.Er) 0.4 mg PO DAILY [facility] Last Admin: 11/26/20 09:49 Dose: 0.4 mg Documented by: Topiramate (Topiramate 100 Mg Tab) 100 mg PO BID [facility] Last Admin: 11/26/20 21:03 Dose: 100 mg Documented by: Discontinued Medications Albuterol/Ipratropium (Albuterol/Ipratropium 3.0-0.5 Mg/3 Ml Neb Soln) 3 ml NEB ONETIME ONE Stop: 11/25/20 10:27 Last Admin: 11/25/20 10:49 Dose: 3 ml Documented by: Albuterol/Ipratropium (Albuterol/Ipratropium 4 Gm Inhalation [place]) 0 gm INH Q4H PRN PRN Reason: Dyspnea Last Admin: 11/26/20 08:45 Dose: 1 puff Documented by: Gabapentin (Gabapentin 300 Mg Cap) 600 mg PO TID PRN PRN Reason: PAIN Magnesium Sulfate 4 gm/ Premix 100 mls @ 25 mls/hr IV ONETIME ONE Stop: 11/25/20 15:09 Last Admin: 11/25/20 12:37 Dose: 25 mls/hr Documented by: Remdesivir 200 mg/ Sodium (Chloride) 250 mls @ 250 mls/hr IV ONETIME ONE Stop: 11/25/20 14:17 Last Admin: 11/25/20 17:41 Dose: Not Given Documented by: Remdesivir 200 mg/ Sodium (Chloride) 250 mls @ 250 mls/hr IV ONETIME ONE Stop: 11/25/20 18:59 Last Admin: 11/25/20 17:37 Dose: 250 mls/hr Documented by: Iopamidol (Iopamidol 755 Mg/Ml 500 Ml Multipack Bottle) 80 ml IVPUSH ONETIME STA Stop: 11/25/20 12:06 Last Admin: 11/25/20 12:06 Dose: 80 ml Documented by: Methylprednisolone Sodium Succinate (Methylprednisolone Sodium Succinate 125 Mg/2 Ml Sdv) 125 mg IVPUSH ONETIME ONE Stop: 11/25/20 10:27 Last Admin: 11/25/20 10:49 Dose: 125 mg Documented by: - Exam Quality Assessment: Supplemental Oxygen (One half a liter to 1 L this morning is now currently on room air) General: Alert, Oriented, Cooperative, No Acute Distress Lungs: Clear to Auscultation, Normal Respiratory Effort Cardiovascular: Regular Rate, Regular Rhythm GI/Abdominal Exam: Normal Bowel Sounds, Soft, Non-Tender Extremities: Normal Inspection, Normal Range of Motion, Non-Tender, Pedal Edema (Scant +1 edema stable) Neurological: No New Focal Deficit Psy/Mental Status: Alert, Normal Affect, Normal Mood - Patient Data Lab Results Last 24 hrs: Laboratory Results - last 24 hr 11/26/20 11/26/20 11/26/20 Range/Units 12:30 17:54 21:00 WBC (4.0-11.0) K/uL RBC (4.50-5.90) M/uL Hgb (13.0-17.0) g/dL Hct (38.0-50.0) % MCV (80.0-98.0) fL MCH (27.0-32.0) pg MCHC (31.0-37.0) g/dL RDW Std Deviation (28.0-62.0) fl RDW Coeff of Romina (11.0-15.0) % Plt Count (150-400) K/uL MPV (7.40-12.00) fL Neut % (Auto) (48.0-80.0) % Lymph % (Auto) (16.0-40.0) % Grand % (Auto) (0.0-15.0) % Eos % (Auto) (0.0-7.0) % Baso % (Auto) (0.0-1.5) % Neut # (Auto) (1.4-5.7) K/uL Lymph # (Auto) (0.6-2.4) K/uL Grand # (Auto) (0.0-0.8) K/uL Eos # (Auto) (0.0-0.7) K/uL Baso # (Auto) (0.0-0.1) K/uL Nucleated RBC % /100WBC Nucleated RBCs # K/uL Sodium (136-148) mmol/L Potassium (3.5-5.1) mmol/L Chloride (98-107) mmol/L Carbon Dioxide (21.0-32.0) mmol/L BUN (7.0-18.0) mg/dL Creatinine (0.8-1.3) mg/dL Est Cr Clr Drug Dosing mL/min Estimated GFR (MDRD) ml/min Glucose (74-106) mg/dL POC Glucose 196 H 189 H 188 H (70-99) mg/dL Calcium (8.5-10.1) mg/dL Magnesium (1.8-2.4) mg/dL Total Bilirubin (0.2-1.0) mg/dL AST (15-37) IU/L ALT (14-63) IU/L Alkaline Phosphatase (46-116) U/L Total Protein (6.4-8.2) g/dL Albumin (3.4-5.0) g/dL Globulin (2.6-4.0) g/dL Albumin/Globulin Ratio (0.9-1.6) 11/27/20 11/27/20 11/27/20 Range/Units 05:50 05:50 06:33 WBC 3.87 L (4.0-11.0) K/uL RBC 3.82 L (4.50-5.90) M/uL Hgb 12.6 L (13.0-17.0) g/dL Hct 38.5 (38.0-50.0) % MCV 100.8 H (80.0-98.0) fL MCH 33.0 H (27.0-32.0) pg MCHC 32.7 (31.0-37.0) g/dL RDW Std Deviation 51.9 (28.0-62.0) fl RDW Coeff of Romina 14 (11.0-15.0) % Plt Count 132 L (150-400) K/uL MPV 11.40 (7.40-12.00) fL Neut % (Auto) 67.6 (48.0-80.0) % Lymph % (Auto) 23.8 (16.0-40.0) % Grand % (Auto) 8.3 (0.0-15.0) % Eos % (Auto) 0.0 (0.0-7.0) % Baso % (Auto) 0.3 (0.0-1.5) % Neut # (Auto) 2.6 (1.4-5.7) K/uL Lymph # (Auto) 0.9 (0.6-2.4) K/uL Grand # (Auto) 0.3 (0.0-0.8) K/uL Eos # (Auto) 0.0 (0.0-0.7) K/uL Baso # (Auto) 0.0 (0.0-0.1) K/uL Nucleated RBC % 0.0 /100WBC Nucleated RBCs # 0 K/uL Sodium 140 (136-148) mmol/L Potassium 3.6 (3.5-5.1) mmol/L Chloride 105 (98-107) mmol/L Carbon Dioxide 25.5 (21.0-32.0) mmol/L BUN 21 H (7.0-18.0) mg/dL Creatinine 1.0 (0.8-1.3) mg/dL Est Cr Clr Drug Dosing 64.81 mL/min Estimated GFR (MDRD) > 60.0 ml/min Glucose 116 H (74-106) mg/dL POC Glucose 139 H (70-99) mg/dL Calcium 7.5 L (8.5-10.1) mg/dL Magnesium 2.0 (1.8-2.4) mg/dL Total Bilirubin 0.3 (0.2-1.0) mg/dL AST 29 (15-37) IU/L ALT 28 (14-63) IU/L Alkaline Phosphatase 51 (46-116) U/L Total Protein 6.2 L (6.4-8.2) g/dL Albumin 2.4 L (3.4-5.0) g/dL Globulin 3.8 (2.6-4.0) g/dL Albumin/Globulin Ratio 0.6 L (0.9-1.6) Result Diagrams: 11/27/20 05:50 11/27/20 05:50 Sepsis Event Note - Evaluation Sepsis Screening Result: No Definite Risk - Focused Exam Vital Signs: Vital Signs Temp Pulse Resp BP Pulse Ox 11/27/20 03:55 97.5 F 106 H 20 132/61 94 L 11/26/20 22:49 98.8 F 90 20 141/61 H 94 L 11/26/20 20:05 97.3 F 94 20 156/66 H 94 L - Problem List & Annotations (1) Acute respiratory failure with hypoxia SNOMED Code(s): 46805324, 013439907 Code(s): J96.01 - ACUTE RESPIRATORY FAILURE WITH HYPOXIA Status: Acute Current Visit: Yes (2) COVID-19 virus infection SNOMED Code(s): 349906644 Code(s): U07.1 - COVID-19 Status: Acute Current Visit: Yes (3) COPD exacerbation SNOMED Code(s): 138687250 Code(s): J44.1 - CHRONIC OBSTRUCTIVE PULMONARY DISEASE W (ACUTE) EXACERBATION Status: Acute Current Visit: Yes (4) CAD (coronary artery disease) SNOMED Code(s): 69854004 Code(s): I25.10 - ATHSCL HEART DISEASE OF [place] CORONARY ARTERY W/O ANG PCTRS Status: Chronic Priority: Medium Current Visit: No Qualifiers: [place] vs. transplanted heart: [place] heart Associated angina: without angina (5) DM type 2 (diabetes mellitus, type 2) SNOMED Code(s): 31006780 Code(s): E11.9 - TYPE 2 DIABETES MELLITUS WITHOUT COMPLICATIONS Status: Chronic Priority: Medium Current Visit: No Qualifiers: Diabetes mellitus complication status: with other specified complication Qualified Code(s): E11.69 - Type 2 diabetes mellitus with other specified complication (6) Dyslipidemia SNOMED Code(s): 357131824 Code(s): E78.5 - HYPERLIPIDEMIA, UNSPECIFIED Status: Chronic Priority: Low Current Visit: No (7) HTN (hypertension), benign SNOMED Code(s): 97835704 Code(s): I10 - ESSENTIAL (PRIMARY) HYPERTENSION Status: Chronic Priority: Low Current Visit: No (8) WILMA (obstructive sleep apnea) SNOMED Code(s): 75262489 Code(s): G47.33 - OBSTRUCTIVE SLEEP APNEA (ADULT) (PEDIATRIC) Status: Chronic Priority: Medium Current Visit: No Annotation/Comment:: noncompliant with cpap (9) Obesity SNOMED Code(s): 410801776, 980363687 Code(s): E66.9 - OBESITY, UNSPECIFIED Status: Chronic Priority: Low Current Visit: No Qualifiers: Obesity type: due to excess calories (10) Congestive heart failure SNOMED Code(s): 41882221 Code(s): I50.9 - HEART FAILURE, UNSPECIFIED Status: Chronic Current Vi sit: No Qualifiers: Heart failure type: systolic Heart failure chronicity: chronic Qualified Code(s): I50.22 - Chronic systolic (congestive) heart failure (11) Benign familial tremor SNOMED Code(s): 965168396 Code(s): G25.0 - ESSENTIAL TREMOR Status: Chronic Current Visit: Yes - Problem List Review Problem List Initiated/Reviewed/Updated: Yes - My Orders Last 24 Hours: My Active Orders 11/26/20 08:08 Daily Weight [Height and Weight] [RC] DAILY Intake and Output Strict [RC] ASDIRECTED RT Incentive Spirometry [RC] Q1HWA RT Acapella [RESPCARE] Routine 11/26/20 08:50 guaiFENesin [Robitussin] 200 mg PO Q4H PRN 11/26/20 08:53 Up to Chair [RC] ASDIRECTED 11/26/20 08:55 Acetaminophen [TylenoL] 650 mg PO Q4H PRN Ondansetron [Zofran] 4 mg IVPUSH Q4H PRN 11/26/20 09:00 Aspirin [Halfprin] 81 mg PO DAILY Fluticasone Propionate [Flonase] 0 gm NASBOTH DAILY Furosemide [Lasix] 40 mg PO DAILY Tamsulosin [Flomax] 0.4 mg PO DAILY 11/26/20 14:00 Albuterol/Ipratropium [Combivent Respimat] See Dose Instructions INH Q4HRRT - Plan Plan:: 75 yo male admitted for acute hypoxic respiratory failure, COVID pneumonia, and COPD exacerbation 1. Acute hypoxic respiratory failure -Improving currently on room air we will monitor today - Combination of COVID 19 pna and COPD exacerbation - Continue oxygen to keep sats >90%, wean as possible 2. COVID 19 pneumonia - Encourage IS, Acapella use - Combivent scheduled - Oxygen as above - Continue Dexamethasone 6 mg po daily - Continue Remdesivir - Lovenox daily - Robitussin PRN for cough - Encourage up to chair and ambulation 3. COPD exacerbation - Steroids as above - Continue Advair - Combivent inhaler - Continue Azithromycin daily -Attempted have some bring in his CPAP for overnight. 4. Dm Type 2 - BS controlled and stable - Monitor with steroid use - Continue Lantus 42 units bedtime - Med SSI with meals - Check BS TIDAC - ADA diet 5. Hx CAD, CHF, HTN, HLD - Continue Lasix, Lisinopril, ASA and statin - Monitor daily weights, strict I/O - ECHO in 2016 revealed severely decrease EF and LV hypokinesis 6. Familial tremor - Continue Topamax and Primidone VTE prophylaxis: Lovenox GI prophylaxis: Omeprazole CODE STATUS: Full Code Dispo: Possible home in a.m. if patient remains off oxygen
[2020-11-27] MEDS ORDERED: 50% Dextrose in Water 50 ML Syringe IVPUSH ONE (08:27)
[2020-11-27] MEDS: Topiramate 100 MG Tab PO SCH ×2 (09:24→20:49)
[2020-11-27] MEDS: Aspirin 81 MG Tab.EC PO SCH (09:24)
[2020-11-27] MEDS: Dexamethasone 4 MG Tab PO SCH (09:24)
[2020-11-27] MEDS: Tamsulosin 0.4 MG Cap.ER PO SCH (09:25)
[2020-11-27] MEDS: Primidone 250 MG Tab PO SCH ×2 (09:25→21:26)
[2020-11-27] MEDS: Furosemide 40 MG Tab PO SCH (09:25)
[2020-11-27] MEDS: Fluticasone Propionate Nasal Spray 16 GM Bottle NASBOTH SCH (09:26)
[2020-11-27] MEDS: Fluticasone/Salmeterol 100-50 MCG Inhalation Powder 14/Diskus INH SCH ×2 (09:26→20:49)
[2020-11-27] MEDS: Lisinopril 5 MG Tab PO SCH (09:28)
[2020-11-27] MEDS: Azithromycin 250 MG Tab PO SCH (15:04)
[2020-11-27] MEDS: REMDESIVIR 100 MG in Sodium Chloride 0.9% 100 ML IV SCH (15:05)
[2020-11-27] MEDS: Enoxaparin 40 MG/0.4 ML Syringe SUBCUT SCH (15:05)
[2020-11-27] MEDS: Insulin Glargine,Human Rec. Analog 100 Units/ML 3 ML Pen SUBCUT SCH (20:48)
[2020-11-27] MEDS: Simvastatin 40 MG Tab PO SCH (20:48)
[2020-11-28] MEDS: Albuterol/Ipratropium 4 GM Inhalation Spray INH SCH ×6 (02:49→21:12)
[2020-11-28] MEDS: Gabapentin 300 MG Cap PO SCH ×3 (05:05→21:12)
[2020-11-28] MEDS: Insulin Aspart 100 Units/ML 3 ML Pen SUBCUT SCH ×3 (06:38→16:56)
[2020-11-28] MEDS: Omeprazole 20 MG Cap.CR PO SCH (06:39)
[2020-11-28 06:49] LABS: BLOOD UREA NITROGEN,BUN 20 mg/dL (7.0-18.0); CARBON DIOXIDE,CO2 25.5 mmol/L (21.0-32.0); CHLORIDE,CL 105 mmol/L (98-107); GLUCOSE RANDOM 121 mg/dL (74-106); POTASSIUM,K 3.6 mmol/L (3.5-5.1); SODIUM,NA 140 mmol/L (136-148)
[2020-11-28] MEDS: Lisinopril 5 MG Tab PO SCH (08:39)
[2020-11-28] MEDS: Dexamethasone 4 MG Tab PO SCH (08:39)
[2020-11-28] MEDS: Tamsulosin 0.4 MG Cap.ER PO SCH (08:39)
[2020-11-28] MEDS: Fluticasone/Salmeterol 100-50 MCG Inhalation Powder 14/Diskus INH SCH ×2 (08:41→21:08)
[2020-11-28] MEDS: Furosemide 40 MG Tab PO SCH (08:41)
[2020-11-28] MEDS: Aspirin 81 MG Tab.EC PO SCH (08:41)
[2020-11-28] MEDS: Topiramate 100 MG Tab PO SCH ×2 (08:41→21:10)
[2020-11-28] MEDS: Primidone 250 MG Tab PO SCH ×2 (08:42→21:09)
[2020-11-28] MEDS: Fluticasone Propionate Nasal Spray 16 GM Bottle NASBOTH SCH (08:42)
--- NOTE | 2020-11-28 11:10 | PCM.PN ---
- General Info Date of Service: 11/28/20 Admission Dx/Problem (Free Text): Admission Diagnosis/Problem Admission Diagnosis/Problem Hypoxia Subjective Update: feeling improved today, shortness of breath continues but steadily improving. COugh, no chest pain. Sinus congestion improving. Nursing reports desaturation in oxygen with ambulation to mid 80s. Functional Status: Reports: Pain Controlled, Tolerating Diet, Ambulating, Urinating - Review of Systems General: Reports: Fatigue, Malaise HEENT: Reports: Sinus Congestion. Denies: Headaches, Sore Throat Pulmonary: Reports: Shortness of Breath. Denies: Cough Cardiovascular: Reports: Edema (at baseline). Denies: Chest Pain, Dyspnea on Exertion Gastrointestinal: Reports: No Symptoms. Denies: Nausea, Vomiting Genitourinary: Reports: No Symptoms. Denies: Dysuria, Frequency, Burning Musculoskeletal: Reports: No Symptoms Skin: Reports: No Symptoms Neurological: Reports: No Symptoms Psychiatric: Reports: No Symptoms - Patient Data Vitals - Most Recent: Last Vital Signs Temp 97.3 F 11/28/20 08:44 Pulse 85 11/28/20 08:44 Resp 18 11/28/20 08:44 BP 129/59 L 11/28/20 08:44 Pulse Ox 91 L 11/28/20 08:44 Weight - Most Recent: 151.273 kg I&O - Last 24 Hours: Intake & Output 11/27/20 11/28/20 11/28/20 22:59 06:59 14:59 Intake Total 540 665 Output Total 400 525 Balance 140 140 Lab Results Last 24 Hours: Laboratory Results - last 24 hr 11/27/20 11/27/20 11/28/20 Range/Units 12:31 17:37 05:42 WBC 4.17 (4.0-11.0) K/uL RBC 3.75 L (4.50-5.90) M/uL Hgb 12.4 L (13.0-17.0) g/dL Hct 37.9 L (38.0-50.0) % MCV 101.1 H (80.0-98.0) fL MCH 33.1 H (27.0-32.0) pg MCHC 32.7 (31.0-37.0) g/dL RDW Std Deviation 52.1 (28.0-62.0) fl RDW Coeff of Romina 14 (11.0-15.0) % Plt Count 141 L (150-400) K/uL MPV 11.50 (7.40-12.00) fL Neut % (Auto) 65.5 (48.0-80.0) % Lymph % (Auto) 26.1 (16.0-40.0) % [place] % (Auto) 7.7 (0.0-15.0) % Eos % (Auto) 0.7 (0.0-7.0) % Baso % (Auto) 0.0 (0.0-1.5) % Neut # (Auto) 2.7 (1.4-5.7) K/uL Lymph # (Auto) 1.1 (0.6-2.4) K/uL [place] # (Auto) 0.3 (0.0-0.8) K/uL Eos # (Auto) 0.0 (0.0-0.7) K/uL Baso # (Auto) 0.0 (0.0-0.1) K/uL Nucleated RBC % 0.0 /100WBC Nucleated RBCs # 0 K/uL Sodium (136-148) mmol/L Potassium (3.5-5.1) mmol/L Chloride (98-107) mmol/L Carbon Dioxide (21.0-32.0) mmol/L BUN (7.0-18.0) mg/dL Creatinine (0.8-1.3) mg/dL Est Cr Clr Drug Dosing mL/min Estimated GFR (MDRD) ml/min Glucose (74-106) mg/dL POC Glucose 153 H 197 H (70-99) mg/dL Calcium (8.5-10.1) mg/dL Magnesium (1.8-2.4) mg/dL Total Bilirubin (0.2-1.0) mg/dL AST (15-37) IU/L ALT (14-63) IU/L Alkaline Phosphatase (46-116) U/L Total Protein (6.4-8.2) g/dL Albumin (3.4-5.0) g/dL Globulin (2.6-4.0) g/dL Albumin/Globulin Ratio (0.9-1.6) 11/28/20 11/28/20 Range/Units 05:42 06:37 WBC (4.0-11.0) K/uL RBC (4.50-5.90) M/uL Hgb (13.0-17.0) g/dL Hct (38.0-50.0) % MCV (80.0-98.0) fL MCH (27.0-32.0) pg MCHC (31.0-37.0) g/dL RDW Std Deviation (28.0-62.0) fl RDW Coeff of Romina (11.0-15.0) % Plt Count (150-400) K/uL MPV (7.40-12.00) fL Neut % (Auto) (48.0-80.0) % Lymph % (Auto) (16.0-40.0) % [place] % (Auto) (0.0-15.0) % Eos % (Auto) (0.0-7.0) % Baso % (Auto) (0.0-1.5) % Neut # (Auto) (1.4-5.7) K/uL Lymph # (Auto) (0.6-2.4) K/uL [place] # (Auto) (0.0-0.8) K/uL Eos # (Auto) (0.0-0.7) K/uL Baso # (Auto) (0.0-0.1) K/uL Nucleated RBC % /100WBC Nucleated RBCs # K/uL Sodium 140 (136-148) mmol/L Potassium 3.6 (3.5-5.1) mmol/L Chloride 105 (98-107) mmol/L Carbon Dioxide 25.5 (21.0-32.0) mmol/L BUN 20 H (7.0-18.0) mg/dL Creatinine 1.1 (0.8-1.3) mg/dL Est Cr Clr Drug Dosing 58.92 mL/min Estimated GFR (MDRD) > 60.0 ml/min Glucose 121 H (74-106) mg/dL POC Glucose 126 H (70-99) mg/dL Calcium 7.7 L (8.5-10.1) mg/dL Magnesium 2.0 (1.8-2.4) mg/dL Total Bilirubin 0.3 (0.2-1.0) mg/dL AST 30 (15-37) IU/L ALT 27 (14-63) IU/L Alkaline Phosphatase 56 (46-116) U/L Total Protein 6.4 (6.4-8.2) g/dL Albumin 2.5 L (3.4-5.0) g/dL Globulin 3.9 (2.6-4.0) g/dL Albumin/Globulin Ratio 0.6 L (0.9-1.6) Med Orders - Current: Current Medications Acetaminophen (Acetaminophen 325 Mg Tab) 650 mg PO Q4H PRN PRN Reason: Pain/Fever Albuterol/Ipratropium (Albuterol/Ipratropium 4 Gm Inhalation [place]) 0 gm INH Q4HRRT [facility] Last Admin: 11/28/20 10:45 Dose: 1 puff Documented by: Alprazolam (Alprazolam 0.5 Mg Tab) 1 mg PO BID PRN PRN Reason: Anxiety Aspirin (Aspirin 81 Mg Tab.Ec) 81 mg PO DAILY [facility] Last Admin: 11/28/20 08:41 Dose: 81 mg Documented by: Azithromycin (Azithromycin 250 Mg Tab) 500 mg PO Q24H [facility] Last Admin: 11/27/20 15:04 Dose: 500 mg Documented by: Dexamethasone (Dexamethasone 4 Mg Tab) 6 mg PO DAILY [facility] Last Admin: 11/28/20 08:39 Dose: 6 mg Documented by: Dextrose/Water (50% Dextrose In Water 50 Ml Syringe) 50 ml IVPUSH ASDIRECTED PRN PRN Reason: Hypoglycemia Enoxaparin Sodium (Enoxaparin 40 Mg/0.4 Ml Syringe) 40 mg SUBCUT Q24H [facility] Last Admin: 11/27/20 15:05 Dose: 40 mg Documented by: Fluticasone Propionate (Fluticasone Propionate Nasal [place] 16 Gm Bottle) 0 gm NASBOTH DAILY [facility] Last Admin: 11/28/20 08:42 Dose: 2 sprays Documented by: Furosemide (Furosemide 40 Mg Tab) 40 mg PO DAILY [facility] Last Admin: 11/28/20 08:41 Dose: 40 mg Documented by: Gabapentin (Gabapentin 300 Mg Cap) 600 mg PO TID [facility] Last Admin: 11/28/20 05:05 Dose: 600 mg Documented by: Glucagon (Glucagon,Human Recombinant 1 Mg Vial) 1 mg IM ASDIRECTED PRN PRN Reason: Hypoglycemia Guaifenesin (Guaifenesin 100 Mg/5 Ml Soln 10 Ml Ud Cup) 200 mg PO Q4H PRN PRN Reason: Cough Remdesivir 100 mg/ Sodium (Chloride) 100 mls @ 100 mls/hr IV Q24H [facility] Stop: 11/29/20 15:29 Last Admin: 11/27/20 15:05 Dose: 100 mls/hr Documented by: Insulin Aspart (Insulin Aspart 100 Units/Ml 3 Ml Pen) 0 unit SUBCUT TIDAC [facility]; Protocol Last Admin: 11/28/20 06:38 Dose: Not Given Documented by: Insulin Glargine (Insulin Glargine,Human Rec. Analog 100 Units/Ml 3 Ml Pen) 42 units SUBCUT BEDTIME [facility] Last Admin: 11/27/20 20:48 Dose: 42 units Documented by: Lisinopril (Lisinopril 5 Mg Tab) 5 mg PO DAILY [facility] Last Admin: 11/28/20 08:39 Dose: 5 mg Documented by: Omeprazole (Omeprazole 20 Mg Cap.Cr) 20 mg PO ACBREAKFAST [facility] Last Admin: 11/28/20 06:39 Dose: 20 mg Documented by: Ondansetron HCl (Ondansetron 4 Mg/2 Ml Sdv) 4 mg IVPUSH Q4H PRN PRN Reason: Nausea Primidone (Primidone 250 Mg Tab) 500 mg PO BID [facility] Last Admin: 11/28/20 08:42 Dose: 500 mg Documented by: Fluticasone/Salmeterol (Fluticasone/Salmeterol 100-50 Mcg Inhalation Powder 14/Diskus) 1 puff INH BID [facility] Last Admin: 11/28/20 08:41 Dose: 1 puff Documented by: Simvastatin (Simvastatin 40 Mg Tab) 40 mg PO BEDTIME [facility] Last Admin: 11/27/20 20:48 Dose: 40 mg Documented by: Sodium Chloride (Sodium Chloride 0.9% 10 Ml Syringe) 10 ml FLUSH ASDIRECTED PRN PRN Reason: Keep Vein Open Last Admin: 11/25/20 10:49 Dose: 10 ml Documented by: Sodium Chloride (Sodium Chloride 0.9% 2.5 Ml Syringe) 2.5 ml FLUSH ASDIRECTED PRN PRN Reason: Keep Vein Open Last Admin: 11/25/20 10:49 Dose: 2.5 ml Documented by: Tamsulosin HCl (Tamsulosin 0.4 Mg Cap.Er) 0.4 mg PO DAILY [facility] Last Admin: 11/28/20 08:39 Dose: 0.4 mg Documented by: Topiramate (Topiramate 100 Mg Tab) 100 mg PO BID [facility] Last Admin: 11/28/20 08:41 Dose: 100 mg Documented by: Discontinued Medications Albuterol/Ipratropium (Albuterol/Ipratropium 3.0-0.5 Mg/3 Ml Neb Soln) 3 ml NEB ONETIME ONE Stop: 11/25/20 10:27 Last Admin: 11/25/20 10:49 Dose: 3 ml Documented by: Albuterol/Ipratropium (Albuterol/Ipratropium 4 Gm Inhalation [place]) 0 gm INH Q4H PRN PRN Reason: Dyspnea Last Admin: 11/26/20 08:45 Dose: 1 puff Documented by: Gabapentin (Gabapentin 300 Mg Cap) 600 mg PO TID PRN PRN Reason: PAIN Magnesium Sulfate 4 gm/ Premix 100 mls @ 25 mls/hr IV ONETIME ONE Stop: 11/25/20 15:09 Last Admin: 11/25/20 12:37 Dose: 25 mls/hr Documented by: Remdesivir 200 mg/ Sodium (Chloride) 250 mls @ 250 mls/hr IV ONETIME ONE Stop: 11/25/20 14:17 Last Admin: 11/25/20 17:41 Dose: Not Given Documented by: Remdesivir 200 mg/ Sodium (Chloride) 250 mls @ 250 mls/hr IV ONETIME ONE Stop: 11/25/20 18:59 Last Admin: 11/25/20 17:37 Dose: 250 mls/hr Documented by: Iopamidol (Iopamidol 755 Mg/Ml 500 Ml Multipack Bottle) 80 ml IVPUSH ONETIME STA Stop: 11/25/20 12:06 Last Admin: 11/25/20 12:06 Dose: 80 ml Documented by: Methylprednisolone Sodium Succinate (Methylprednisolone Sodium Succinate 125 Mg/2 Ml Sdv) 125 mg IVPUSH ONETIME ONE Stop: 11/25/20 10:27 Last Admin: 11/25/20 10:49 Dose: 125 mg Documented by: - Exam Quality Assessment: Supplemental Oxygen, DVT Prophylaxis General: Alert, Oriented, Cooperative Lungs: Clear to Auscultation, Normal Respiratory Effort Cardiovascular: Regular Rate, Regular Rhythm GI/Abdominal Exam: Normal Bowel Sounds, Soft, Non-Tender Extremities: Normal Inspection, Normal Range of Motion, Non-Tender, Pedal Edema (scant, stable) Wound/Incisions: Healing Well Neurological: No New Focal Deficit Psy/Mental Status: Alert, Normal Affect, Normal Mood - Patient Data Lab Results Last 24 hrs: Laboratory Results - last 24 hr 11/27/20 11/27/20 11/28/20 Range/Units 12:31 17:37 05:42 WBC 4.17 (4.0-11.0) K/uL RBC 3.75 L (4.50-5.90) M/uL Hgb 12.4 L (13.0-17.0) g/dL Hct 37.9 L (38.0-50.0) % MCV 101.1 H (80.0-98.0) fL MCH 33.1 H (27.0-32.0) pg MCHC 32.7 (31.0-37.0) g/dL RDW Std Deviation 52.1 (28.0-62.0) fl RDW Coeff of Romina 14 (11.0-15.0) % Plt Count 141 L (150-400) K/uL MPV 11.50 (7.40-12.00) fL Neut % (Auto) 65.5 (48.0-80.0) % Lymph % (Auto) 26.1 (16.0-40.0) % [place] % (Auto) 7.7 (0.0-15.0) % Eos % (Auto) 0.7 (0.0-7.0) % Baso % (Auto) 0.0 (0.0-1.5) % Neut # (Auto) 2.7 (1.4-5.7) K/uL Lymph # (Auto) 1.1 (0.6-2.4) K/uL [place] # (Auto) 0.3 (0.0-0.8) K/uL Eos # (Auto) 0.0 (0.0-0.7) K/uL Baso # (Auto) 0.0 (0.0-0.1) K/uL Nucleated RBC % 0.0 /100WBC Nucleated RBCs # 0 K/uL Sodium (136-148) mmol/L Potassium (3.5-5.1) mmol/L Chloride (98-107) mmol/L Carbon Dioxide (21.0-32.0) mmol/L BUN (7.0-18.0) mg/dL Creatinine (0.8-1.3) mg/dL Est Cr Clr Drug Dosing mL/min Estimated GFR (MDRD) ml/min Glucose (74-106) mg/dL POC Glucose 153 H 197 H (70-99) mg/dL Calcium (8.5-10.1) mg/dL Magnesium (1.8-2.4) mg/dL Total Bilirubin (0.2-1.0) mg/dL AST (15-37) IU/L ALT (14-63) IU/L Alkaline Phosphatase (46-116) U/L Total Protein (6.4-8.2) g/dL Albumin (3.4-5.0) g/dL Globulin (2.6-4.0) g/dL Albumin/Globulin Ratio (0.9-1.6) 11/28/20 11/28/20 Range/Units 05:42 06:37 WBC (4.0-11.0) K/uL RBC (4.50-5.90) M/uL Hgb (13.0-17.0) g/dL Hct (38.0-50.0) % MCV (80.0-98.0) fL MCH (27.0-32.0) pg MCHC (31.0-37.0) g/dL RDW Std Deviation (28.0-62.0) fl RDW Coeff of Romina (11.0-15.0) % Plt Count (150-400) K/uL MPV (7.40-12.00) fL Neut % (Auto) (48.0-80.0) % Lymph % (Auto) (16.0-40.0) % [place] % (Auto) (0.0-15.0) % Eos % (Auto) (0.0-7.0) % Baso % (Auto) (0.0-1.5) % Neut # (Auto) (1.4-5.7) K/uL Lymph # (Auto) (0.6-2.4) K/uL [place] # (Auto) (0.0-0.8) K/uL Eos # (Auto) (0.0-0.7) K/uL Baso # (Auto) (0.0-0.1) K/uL Nucleated RBC % /100WBC Nucleated RBCs # K/uL Sodium 140 (136-148) mmol/L Potassium 3.6 (3.5-5.1) mmol/L Chloride 105 (98-107) mmol/L Carbon Dioxide 25.5 (21.0-32.0) mmol/L BUN 20 H (7.0-18.0) mg/dL Creatinine 1.1 (0.8-1.3) mg/dL Est Cr Clr Drug Dosing 58.92 mL/min Estimated GFR (MDRD) > 60.0 ml/min Glucose 121 H (74-106) mg/dL POC Glucose 126 H (70-99) mg/dL Calcium 7.7 L (8.5-10.1) mg/dL Magnesium 2.0 (1.8-2.4) mg/dL Total Bilirubin 0.3 (0.2-1.0) mg/dL AST 30 (15-37) IU/L ALT 27 (14-63) IU/L Alkaline Phosphatase 56 (46-116) U/L Total Protein 6.4 (6.4-8.2) g/dL Albumin 2.5 L (3.4-5.0) g/dL Globulin 3.9 (2.6-4.0) g/dL Albumin/Globulin Ratio 0.6 L (0.9-1.6) Result Diagrams: 11/28/20 05:42 11/28/20 05:42 Sepsis Event Note - Evaluation Sepsis Screening Result: Possible Sepsis Risk - Focused Exam Vital Signs: Vital Signs Temp Pulse Resp BP BP Pulse Ox 11/28/20 08:44 97.3 F 85 18 129/59 L 91 L 11/28/20 08:39 129/59 L 11/28/20 05:02 97.3 F 84 17 138/64 94 L 11/27/20 23:15 97.5 F 85 17 147/63 H 91 L - Problem List & Annotations (1) Acute respiratory failure with hypoxia SNOMED Code(s): 83051799, 083930324 Code(s): J96.01 - ACUTE RESPIRATORY FAILURE WITH HYPOXIA Status: Acute Current Visit: Yes (2) COVID-19 virus infection SNOMED Code(s): 005029264 Code(s): U07.1 - COVID-19 Status: Acute Current Visit: Yes (3) COPD exacerbation SNOMED Code(s): 675380748 Code(s): J44.1 - CHRONIC OBSTRUCTIVE PULMONARY DISEASE W (ACUTE) EXACERBATION Status: Acute Current Visit: Yes (4) CAD (coronary artery disease) SNOMED Code(s): 67598515 Code(s): I25.10 - ATHSCL HEART DISEASE OF [place] CORONARY ARTERY W/O ANG PCTRS Status: Chronic Priority: Medium Current Visit: No Qualifiers: [place] vs. transplanted heart: [place] heart Associated angina: without angina (5) DM type 2 (diabetes mellitus, type 2) SNOMED Code(s): 06840579 Code(s): E11.9 - TYPE 2 DIABETES MELLITUS WITHOUT COMPLICATIONS Status: Chronic Priority: Medium Current Visit: No Qualifiers: Diabetes mellitus complication status: with other specified complication Qualified Code(s): E11.69 - Type 2 diabetes mellitus with other specified complication (6) Dyslipidemia SNOMED Code(s): 681235184 Code(s): E78.5 - HYPERLIPIDEMIA, UNSPECIFIED Status: Chronic Priority: Low Current Visit: No (7) HTN (hypertension), benign SNOMED Code(s): 95148233 Code(s): I10 - ESSENTIAL (PRIMARY) HYPERTENSION Status: Chronic Priority: Low Current Visit: No (8) WILMA (obstructive sleep apnea) SNOMED Code(s): 46751896 Code(s): G47.33 - OBSTRUCTIVE SLEEP APNEA (ADULT) (PEDIATRIC) Status: Chronic Priority: Medium Current Visit: No Annotation/Comment:: noncompliant with cpap (9) Obesity SNOMED Code(s): 955999684, 175468207 Code(s): E66.9 - OBESITY, UNSPECIFIED Status: Chronic Priority: Low Current Visit: No Qualifiers: Obesity type: due to excess calories (10) Congestive heart failure SNOMED Code(s): 34841511 Code(s): I50.9 - HEART FAILURE, UNSPECIFIED Status: Chronic Current Visit: No Qualifiers: Heart failure type: systolic Heart failure chronicity: chronic Qualified Code(s): I50.22 - Chronic systolic (congestive) heart failure (11) Benign familial tremor SNOMED Code(s): 859519249 Code(s): G25.0 - ESSENTIAL TREMOR Status: Chronic Current Visit: Yes - Problem List Review Problem List Initiated/Reviewed/Updated: Yes - Plan Plan:: 75 yo male admitted for acute hypoxic respiratory failure, COVID pneumonia, and COPD exacerbation 1. Acute hypoxic respiratory failure - needing oxygen at rest intermittently and with activity as sats drop to 84-85% - Combination of COVID 19 pna and COPD exacerbation - Continue oxygen to keep sats >90%, wean as possible 2. COVID 19 pneumonia - Encourage IS, Acapella use - Combivent scheduled - Oxygen as above - Continue Dexamethasone 6 mg po daily - Continue Remdesivir 2 doses left in 5 dose series - Lovenox daily - Robitussin PRN for cough - Encourage up to chair and ambulation 3. COPD exacerbation - Steroids as above - Continue Advair - Combivent inhaler - Continue Azithromycin daily -Attempt have some bring in his CPAP for overnight. 4. Dm Type 2 - BS controlled and stable - Monitor with steroid use - Continue Lantus 42 units bedtime - Med SSI with meals - Check BS TIDAC - ADA diet 5. Hx CAD, CHF, HTN, HLD - Continue Lasix, Lisinopril, ASA and statin - Monitor daily weights, strict I/O - ECHO in 2016 revealed severely decrease EF and LV hypokinesis 6. Familial tremor - Continue Topamax and Primidone VTE prophylaxis: Lovenox GI prophylaxis: Omeprazole CODE STATUS: Full Code Dispo: 1-2 days continue remdesivir while needing oxygen, did discuss possible oxygen need on discharge with activity, he is ok with this.
[2020-11-28] MEDS: Azithromycin 250 MG Tab PO SCH (14:44)
[2020-11-28] MEDS: REMDESIVIR 100 MG in Sodium Chloride 0.9% 100 ML IV SCH (14:44)
[2020-11-28] MEDS: Enoxaparin 40 MG/0.4 ML Syringe SUBCUT SCH (14:45)
[2020-11-28] MEDS ORDERED: Nystatin Crm 30 GM Tube TOP PRN (19:59)
[2020-11-28] MEDS: Insulin Glargine,Human Rec. Analog 100 Units/ML 3 ML Pen SUBCUT SCH (21:08)
[2020-11-28] MEDS: Simvastatin 40 MG Tab PO SCH (21:10)
[2020-11-29] MEDS: Albuterol/Ipratropium 4 GM Inhalation Spray INH SCH ×4 (02:28→13:27)
[2020-11-29] MEDS: Insulin Aspart 100 Units/ML 3 ML Pen SUBCUT SCH ×2 (06:37→12:46)
[2020-11-29] MEDS: Omeprazole 20 MG Cap.CR PO SCH (06:38)
[2020-11-29] MEDS: Gabapentin 300 MG Cap PO SCH ×2 (06:38→13:27)
[2020-11-29 07:26] LABS: BLOOD UREA NITROGEN,BUN 18 mg/dL (7.0-18.0); CARBON DIOXIDE,CO2 24.4 mmol/L (21.0-32.0); CHLORIDE,CL 104 mmol/L (98-107); GLUCOSE RANDOM 131 mg/dL (74-106); POTASSIUM,K 3.9 mmol/L (3.5-5.1); SODIUM,NA 138 mmol/L (136-148)
[2020-11-29] MEDS: Lisinopril 5 MG Tab PO SCH (08:55)
[2020-11-29] MEDS: Furosemide 40 MG Tab PO SCH (08:55)
[2020-11-29] MEDS: Dexamethasone 4 MG Tab PO SCH (08:56)
[2020-11-29] MEDS: Aspirin 81 MG Tab.EC PO SCH (08:56)
[2020-11-29] MEDS: Primidone 250 MG Tab PO SCH (08:57)
[2020-11-29] MEDS: Fluticasone Propionate Nasal Spray 16 GM Bottle NASBOTH SCH (08:59)
[2020-11-29] MEDS: Fluticasone/Salmeterol 100-50 MCG Inhalation Powder 14/Diskus INH SCH (09:01)
[2020-11-29] MEDS: Tamsulosin 0.4 MG Cap.ER PO SCH (09:02)
[2020-11-29] MEDS: Topiramate 100 MG Tab PO SCH (09:05)
--- NOTE | 2020-11-29 11:38 | PCM.DCSUM1 ---
Discharge Summary - Hospital Course Free Text/Narrative:: 75-year-old male, with past medical history to include COPD, T2DM on insulin, CAD s/p 1 2003, presented to the emergency room on 11-25-20 due to shortness of breath, weakness/fatigue that has been worsening for the past 3 days prior to admission. Patient states recent history of sinus infection, stuffy nose, sore throat. Patient states regular use of inhalers for COPD. Chest x-ray on admission showed mild cardiomegaly, CT angiography impression notes on the monitor large pulmonary embolism, groundglass infiltrates in both lungs could represent pneumonitis or pulmonary edema. COVID-19 viral infection is not definite but possible. Patient did test positive for COVID-19 in the ER prior to admission. Patient admitted for Covid pneumonia and COPD exacerbation. On admission patient was treated with remdesivir, dexamethasone, oxygen support as needed, resume Combivent, Lovenox, azithromycin. Diabetes managed with nightly Lantus, sliding scale insulin, diabetic diet. Prior to discharge on 11-29-20, patient had one event of A. fib/ A. flutter which lasted roughly 2 hours. Patient did convert back to normal sinus rhythm prior to discharge without the need for medications. Patient was discharged home with Zio patch, order for an echocardiogram outpatient and aspirin 81 mg. Patient advised to follow-up with primary care physician and/or cardiology pending results of Zio patch and echocardiogram. Patient also discharged home with oxygen to be used as needed while walking as patient required 2 L oxygen during O2 walking trial to maintain oxygen saturations at or above 88%. - Discharge Data Discharge Date: 11/29/20 Discharge Disposition: Home, Self-Care 01 Condition: Stable - Referral to Home Health Primary Care Physician: Mu Briggs MD - Patient Instructions Diet: Diabetic Diet Activity: As Tolerated Notify Provider of: Fever, Increased Pain, Swelling and Redness, Nausea and/or Vomiting Other/Special Instructions: REPORT SHORTNESS OF BREATH, CHEST PAIN, FEVER, CHILLS, ABDOMINAL PAIN, BLOOD IN STOOL TO YOUR PRIMARY PHYSICIAN. FOR SEVERE SHORTNESS OF BREATH AND OR CHEST PAIN, VISIT EMERGENCY DEPARTMENT. YOU WERE DISCHARGED HOME ON LOW DOSE ASPRIN. PLEASE REPORT ANY SIGNS OF BLEEDING AND OR ABDOMINAL PAIN TO YOUR PCP - Discharge Plan *PRESCRIPTION DRUG MONITORING PROGRAM REVIEWED*: Not Applicable *COPY OF PRESCRIPTION DRUG MONITORING REPORT IN PATIENT ASHLEY: Not Applicable Prescriptions/Med Rec: Aspirin [Adult Low Dose Aspirin EC] 81 mg PO DAILY #30 tablet. Albuterol/Ipratropium [Combivent Respimat] 1 puff INH Q4HRRT #1 inhaler Home Medications: Home Meds Fluticasone/Salmeterol [Advair Diskus 100-50] 1 puff INH BID 08/06/15 [History] Gabapentin [Neurontin] 600 mg PO TID 08/06/15 [History] Insulin Glarg,Human.Rec.Analog [Lantus] 42 unit SUBCUT QPM 08/06/15 [History] Lisinopril 5 mg PO DAILY 08/06/15 [History] Omeprazole 20 mg PO DAILY 08/06/15 [History] Primidone 500 mg PO BID 08/06/15 [History] Simvastatin 40 mg PO BEDTIME 08/06/15 [History] Tamsulosin [Flomax] 0.4 mg PO DAILY 08/06/15 [History] Furosemide [Lasix] 40 mg PO DAILY #0 08/07/15 [Rx] ALPRAZolam [Alprazolam] 1 mg PO BID PRN 11/25/20 [History] Albuterol Sulfate [Albuterol Sulfate HFA] 2 puff INH QID PRN 11/25/20 [History] Aspirin [Aspirin EC] 81 mg PO DAILY 11/25/20 [History] Cyanocobalamin (Vitamin B-12) [Vitamin B-12] 100 mcg PO DAILY 11/25/20 [History] Fluticasone Propionate [Flonase] 2 sprays NASBOTH DAILY 11/25/20 [History] Pioglitazone HCl/Metformin HCl [Actoplus Met 15 MG-850 MG] 1 each PO DAILY 11/25/20 [History] Potassium Chloride 10 meq PO DAILY 11/25/20 [History] Topiramate 100 mg PO BID 11/25/20 [History] Albuterol/Ipratropium [Combivent Respimat] 1 puff INH Q4HRRT #1 inhaler 11/29/20 [Rx] Aspirin [Adult Low Dose Aspirin EC] 81 mg PO DAILY #30 tablet. 11/29/20 [Rx] Patient Handouts: COVID-19 Frequently Asked Questions, Aspirin, ASA oral tablets, COVID-19: Quarantine vs. Isolation - CDC, Echocardiogram, Ambulatory Cardiac Monitoring, Prevent the Spread of COVID-19 if You Are Sick - [facility] Forms: ED Department Discharge Referrals: Mu Briggs MD [Primary Care Provider] - 12/09/20 11:00 am - Discharge Summary/Plan Comment DC Time >30 min.: Yes Total # of Minutes for Discharge Time: 40 min - General Info Date of Service: 11/29/20 Subjective Update: Patient states he feels fine, denies chest pain, shortness of breath, fever, chills. Patient states he is able to walk and denies dizziness, lightheadedness, but states slight shortness of breath with ambulation. - Review of Systems General: Denies: Fever, Chills Pulmonary: Denies: Shortness of Breath, Cough Cardiovascular: Denies: Chest Pain Gastrointestinal: Denies: Abdominal Pain, Nausea, Vomiting Neurological: Denies: Confusion, Dizziness, Headache Psychiatric: Denies: Confusion - Patient Data Vitals - Most Recent: Last Vital Signs Temp 97.9 F 11/29/20 09:06 Pulse 90 11/29/20 09:06 Resp 18 11/29/20 09:06 BP 126/70 11/29/20 09:06 Pulse Ox 95 11/29/20 09:06 Weight - Most Recent: 331 lb 7.983 oz I&O - Last 24 hours: Intake & Output 11/28/20 11/29/20 11/29/20 22:59 06:59 14:59 Intake Total 820 705 Output Total 950 450 Balance -130 255 Lab Results - Last 24 hrs: Laboratory Results - last 24 hr 11/28/20 11/29/20 11/29/20 Range/Units 16:52 06:35 06:45 WBC 4.37 (4.0-11.0) K/uL RBC 3.82 L (4.50-5.90) M/uL Hgb 12.5 L (13.0-17.0) g/dL Hct 38.1 (38.0-50.0) % MCV 99.7 H (80.0-98.0) fL MCH 32.7 H (27.0-32.0) pg MCHC 32.8 (31.0-37.0) g/dL RDW Std Deviation 49.7 (28.0-62.0) fl RDW Coeff of Romina 14 (11.0-15.0) % Plt Count 159 (150-400) K/uL MPV 11.40 (7.40-12.00) fL Neut % (Auto) 65.7 (48.0-80.0) % Lymph % (Auto) 22.9 (16.0-40.0) % Haakon % (Auto) 9.8 (0.0-15.0) % Eos % (Auto) 1.4 (0.0-7.0) % Baso % (Auto) 0.2 (0.0-1.5) % Neut # (Auto) 2.9 (1.4-5.7) K/uL Lymph # (Auto) 1.0 (0.6-2.4) K/uL Haakon # (Auto) 0.4 (0.0-0.8) K/uL Eos # (Auto) 0.1 (0.0-0.7) K/uL Baso # (Auto) 0.0 (0.0-0.1) K/uL Nucleated RBC % 0.0 /100WBC Nucleated RBCs # 0 K/uL Sodium (136-148) mmol/L Potassium (3.5-5.1) mmol/L Chloride (98-107) mmol/L Carbon Dioxide (21.0-32.0) mmol/L BUN (7.0-18.0) mg/dL Creatinine (0.8-1.3) mg/dL Est Cr Clr Drug Dosing mL/min Estimated GFR (MDRD) ml/min Glucose (74-106) mg/dL POC Glucose 167 H 144 H (70-99) mg/dL Calcium (8.5-10.1) mg/dL Magnesium (1.8-2.4) mg/dL Total Bilirubin (0.2-1.0) mg/dL AST (15-37) IU/L ALT (14-63) IU/L Alkaline Phosphatase (46-116) U/L Total Protein (6.4-8.2) g/dL Albumin (3.4-5.0) g/dL Globulin (2.6-4.0) g/dL Albumin/Globulin Ratio (0.9-1.6) TSH, Ultra Sensitive (0.36-3.74) uIU/mL 11/29/20 11/29/20 Range/Units 06:45 06:45 WBC (4.0-11.0) K/uL RBC (4.50-5.90) M/uL Hgb (13.0-17.0) g/dL Hct (38.0-50.0) % MCV (80.0-98.0) fL MCH (27.0-32.0) pg MCHC (31.0-37.0) g/dL RDW Std Deviation (28.0-62.0) fl RDW Coeff of Romina (11.0-15.0) % Plt Count (150-400) K/uL MPV (7.40-12.00) fL Neut % (Auto) (48.0-80.0) % Lymph % (Auto) (16.0-40.0) % Haakon % (Auto) (0.0-15.0) % Eos % (Auto) (0.0-7.0) % Baso % (Auto) (0.0-1.5) % Neut # (Auto) (1.4-5.7) K/uL Lymph # (Auto) (0.6-2.4) K/uL Haakon # (Auto) (0.0-0.8) K/uL Eos # (Auto) (0.0-0.7) K/uL Baso # (Auto) (0.0-0.1) K/uL Nucleated RBC % /100WBC Nucleated RBCs # K/uL Sodium 138 (136-148) mmol/L Potassium 3.9 (3.5-5.1) mmol/L Chloride 104 (98-107) mmol/L Carbon Dioxide 24.4 (21.0-32.0) mmol/L BUN 18 (7.0-18.0) mg/dL Creatinine 0.9 (0.8-1.3) mg/dL Est Cr Clr Drug Dosing 72.01 mL/min Estimated GFR (MDRD) > 60.0 ml/min Glucose 131 H (74-106) mg/dL POC Glucose (70-99) mg/dL Calcium 7.6 L (8.5-10.1) mg/dL Magnesium 1.9 (1.8-2.4) mg/dL Total Bilirubin 0.3 (0.2-1.0) mg/dL AST 37 (15-37) IU/L ALT 32 (14-63) IU/L Alkaline Phosphatase 56 (46-116) U/L Total Protein 6.3 L (6.4-8.2) g/dL Albumin 2.5 L (3.4-5.0) g/dL Globulin 3.8 (2.6-4.0) g/dL Albumin/Globulin Ratio 0.7 L (0.9-1.6) TSH, Ultra Sensitive 3.70 (0.36-3.74) uIU/mL Med Orders - Current: Current Medications Acetaminophen (Acetaminophen 325 Mg Tab) 650 mg PO Q4H PRN PRN Reason: Pain/Fever Albuterol/Ipratropium (Albuterol/Ipratropium 4 Gm Inhalation [place]) 0 gm INH Q4HRRT [facility] Last Admin: 11/29/20 10:52 Dose: Not Given Documented by: Alprazolam (Alprazolam 0.5 Mg Tab) 1 mg PO BID PRN PRN Reason: Anxiety Aspirin (Aspirin 81 Mg Tab.Ec) 81 mg PO DAILY [facility] Last Admin: 11/29/20 08:56 Dose: 81 mg Documented by: Azithromycin (Azithromycin 250 Mg Tab) 500 mg PO Q24H [facility] Last Admin: 11/28/20 14:44 Dose: 500 mg Documented by: Dexamethasone (Dexamethasone 4 Mg Tab) 6 mg PO DAILY [facility] Last Admin: 11/29/20 08:56 Dose: 6 mg Documented by: Dextrose/Water (50% Dextrose In Water 50 Ml Syringe) 50 ml IVPUSH ASDIRECTED PRN PRN Reason: Hypoglycemia Enoxaparin Sodium (Enoxaparin 40 Mg/0.4 Ml Syringe) 40 mg SUBCUT Q24H [facility] Last Admin: 11/28/20 14:45 Dose: 40 mg Documented by: Fluticasone Propionate (Fluticasone Propionate Nasal [place] 16 Gm Bottle) 0 gm NASBOTH DAILY [facility] Last Admin: 11/29/20 08:59 Dose: 2 sprays Documented by: Furosemide (Furosemide 40 Mg Tab) 40 mg PO DAILY [facility] Last Admin: 11/29/20 08:55 Dose: 40 mg Documented by: Gabapentin (Gabapentin 300 Mg Cap) 600 mg PO TID [facility] Last Admin: 11/29/20 06:38 Dose: 600 mg Documented by: Glucagon (Glucagon,Human Recombinant 1 Mg Vial) 1 mg IM ASDIRECTED PRN PRN Reason: Hypoglycemia Guaifenesin (Guaifenesin 100 Mg/5 Ml Soln 10 Ml Ud Cup) 200 mg PO Q4H PRN PRN Reason: Cough Remdesivir 100 mg/ Sodium (Chloride) 100 mls @ 100 mls/hr IV Q24H [facility] Stop: 11/29/20 15:29 Last Admin: 11/28/20 14:44 Dose: 100 mls/hr Documented by: Insulin Aspart (Insulin Aspart 100 Units/Ml 3 Ml Pen) 0 unit SUBCUT TIDAC [facility]; Protocol Last Admin: 11/29/20 06:37 Dose: Not Given Documented by: Insulin Glargine (Insulin Glargine,Human Rec. Analog 100 Units/Ml 3 Ml Pen) 42 units SUBCUT BEDTIME [facility] Last Admin: 11/28/20 21:08 Dose: 42 units Documented by: Lisinopril (Lisinopril 5 Mg Tab) 5 mg PO DAILY [facility] Last Admin: 11/29/20 08:55 Dose: 5 mg Documented by: Nystatin (Nystatin Crm 30 Gm Tube) 0 gm TOP BID PRN PRN Reason: Itching Last Admin: 11/28/20 21:10 Dose: 1 applic Documented by: Omeprazole (Omeprazole 20 Mg Cap.Cr) 20 mg PO ACBREAKFAST [facility] Last Admin: 11/29/20 06:38 Dose: 20 mg Documented by: Ondansetron HCl (Ondansetron 4 Mg/2 Ml Sdv) 4 mg IVPUSH Q4H PRN PRN Reason: Nausea Primidone (Primidone 250 Mg Tab) 500 mg PO BID [facility] Last Admin: 11/29/20 08:57 Dose: 500 mg Documented by: Fluticasone/Salmeterol (Fluticasone/Salmeterol 100-50 Mcg Inhalation Powder 14/Diskus) 1 puff INH BID [facility] Last Admin: 11/29/20 09:01 Dose: 1 puff Documented by: Simvastatin (Simvastatin 40 Mg Tab) 40 mg PO BEDTIME [facility] Last Admin: 11/28/20 21:10 Dose: 40 mg Documented by: Sodium Chloride (Sodium Chloride 0.9% 10 Ml Syringe) 10 ml FLUSH ASDIRECTED PRN PRN Reason: Keep Vein Open Last Admin: 11/25/20 10:49 Dose: 10 ml Documented by: Sodium Chloride (Sodium Chloride 0.9% 2.5 Ml Syringe) 2.5 ml FLUSH ASDIRECTED PRN PRN Reason: Keep Vein Open Last Admin: 11/25/20 10:49 Dose: 2.5 ml Documented by: Tamsulosin HCl (Tamsulosin 0.4 Mg Cap.Er) 0.4 mg PO DAILY [facility] Last Admin: 11/29/20 09:02 Dose: 0.4 mg Documented by: Topiramate (Topiramate 100 Mg Tab) 100 mg PO BID [facility] Last Admin: 11/29/20 09:05 Dose: 100 mg Documented by: Discontinued Medications Albuterol/Ipratropium (Albuterol/Ipratropium 3.0-0.5 Mg/3 Ml Neb Soln) 3 ml NEB ONETIME ONE Stop: 11/25/20 10:27 Last Admin: 11/25/20 10:49 Dose: 3 ml Documented by: Albuterol/Ipratropium (Albuterol/Ipratropium 4 Gm Inhalation [place]) 0 gm INH Q4H PRN PRN Reason: Dyspnea Last Admin: 11/26/20 08:45 Dose: 1 puff Documented by: Gabapentin (Gabapentin 300 Mg Cap) 600 mg PO TID PRN PRN Reason: PAIN Magnesium Sulfate 4 gm/ Premix 100 mls @ 25 mls/hr IV ONETIME ONE Stop: 11/25/20 15:09 Last Admin: 11/25/20 12:37 Dose: 25 mls/hr Documented by: Remdesivir 200 mg/ Sodium (Chloride) 250 mls @ 250 mls/hr IV ONETIME ONE Stop: 11/25/20 14:17 Last Admin: 11/25/20 17:41 Dose: Not Given Documented by: Remdesivir 200 mg/ Sodium (Chloride) 250 mls @ 250 mls/hr IV ONETIME ONE Stop: 11/25/20 18:59 Last Admin: 11/25/20 17:37 Dose: 250 mls/hr Documented by: Iopamidol (Iopamidol 755 Mg/Ml 500 Ml Multipack Bottle) 80 ml IVPUSH ONETIME STA Stop: 11/25/20 12:06 Last Admin: 11/25/20 12:06 Dose: 80 ml Documented by: Methylprednisolone Sodium Succinate (Methylprednisolone Sodium Succinate 125 Mg/2 Ml Sdv) 125 mg IVPUSH ONETIME ONE Stop: 11/25/20 10:27 Last Admin: 11/25/20 10:49 Dose: 125 mg Documented by: - Exam General: Reports: Alert, Oriented Lungs: Reports: Clear to Auscultation, Normal Respiratory Effort Cardiovascular: Reports: Regular Rate, Regular Rhythm GI/Abdominal Exam: Soft, Non-Tender Extremities: No Pedal Edema
[2020-11-29] MEDS: REMDESIVIR 100 MG in Sodium Chloride 0.9% 100 ML IV SCH (12:16)
[2020-11-29] MEDS: Azithromycin 250 MG Tab PO SCH ×2 (13:27→14:40)
[2020-11-29] MEDS: Enoxaparin 40 MG/0.4 ML Syringe SUBCUT SCH (13:28)
[2020-11-29 14:48] VITALS: BP 129/67; PULSE 89
== END 2020-11-29 13:35 | disposition home or self-care (01) | DRG 177 ==
LOC: MW.ED 09:05 → MW.MS 13:34 → OBSVTOIN 14:05
PROVIDERS: ADMIT Internal Medicine; ATTEND Internal Medicine
PROC: XW033E5 Introduction of Remdesivir Anti-infective into Peripheral Vein, Percutaneous Approach, New Technology Group 5 (ICD-10-PCS; principal; 2020-11-25)
DX: U07.1 COVID-19 (principal); J12.82 Pneumonia due to coronavirus disease 2019; J96.01 Acute respiratory failure with hypoxia; J44.1 Chronic obstructive pulmonary disease with (acute) exacerbation; I48.92 Unspecified atrial flutter; I50.22 Chronic systolic (congestive) heart failure; R09.02 Hypoxemia; J44.0 Chronic obstructive pulmonary disease with (acute) lower respiratory infection; Z68.42 Body mass index [BMI] 45.0-49.9, adult; E83.42 Hypomagnesemia; I25.10 Atherosclerotic heart disease of native coronary artery without angina pectoris; I48.91 Unspecified atrial fibrillation; K21.9 Gastro-esophageal reflux disease without esophagitis; F41.9 Anxiety disorder, unspecified; E78.00 Pure hypercholesterolemia, unspecified; I11.0 Hypertensive heart disease with heart failure; I10 Essential (primary) hypertension; I50.9 Heart failure, unspecified; E78.5 Hyperlipidemia, unspecified; Z98.41 Cataract extraction status, right eye; Z98.42 Cataract extraction status, left eye; R41.9 Unspecified symptoms and signs involving cognitive functions and awareness; Z95.5 Presence of coronary angioplasty implant and graft; I25.2 Old myocardial infarction; E11.9 Type 2 diabetes mellitus without complications; Z89.021 Acquired absence of right finger(s); E66.9 Obesity, unspecified; G25.0 Essential tremor; Z79.82 Long term (current) use of aspirin; Z79.4 Long term (current) use of insulin; Z79.899 Other long term (current) drug therapy
CPT/HCPCS: 36415; 71045; 71275; 80053; 83735; 83880; 84484; 85025; 85379; 87804 ×2; 93005; 96365; 96366; 96375; 99285; J2930; J3475; Q9967; U0002; 81001; 82947; 84443; 93010; 94640; 94667; 94668; A9270-GY; J1650; J1815-GY; J7050; J7620-GY; J8540

== ENCOUNTER 2020-12-29 11:57 | Inpatient (IN) | payer MEDICARE, OTHER ==
[2020-12-29] MEDS ORDERED: Sodium Chloride 0.9% 2.5 ML Syringe FLUSH PRN (12:24)
[2020-12-29] MEDS ORDERED: Sodium Chloride 0.9% 10 ML Syringe FLUSH PRN (12:24)
[2020-12-29] MEDS ORDERED: Ondansetron 4 MG/2 ML SDV IVPUSH ONE (12:30)
[2020-12-29] MEDS ORDERED: Ketorolac 30 MG/ML SDV IVPUSH ONE (12:30)
[2020-12-29] MEDS ORDERED: Ondansetron 4 MG/2 ML SDV ONE (12:46)
[2020-12-29 13:00] LABS: BLOOD UREA NITROGEN,BUN 19 mg/dL (7.0-18.0); CARBON DIOXIDE,CO2 23.5 mmol/L (21.0-32.0); CHLORIDE,CL 100 mmol/L (98-107); GLUCOSE RANDOM 158 mg/dL (74-106); LIPASE 35 U/L (73-393); POTASSIUM,K 4.1 mmol/L (3.5-5.1); SODIUM,NA 135 mmol/L (136-148)
--- NOTE | 2020-12-29 13:01 | EDM.PDOC ---
ED HPI GENERAL MEDICAL PROBLEM - General Chief Complaint: Abdominal Pain Stated Complaint: ABDOMINAL PAIN Time Seen by Provider: 12/29/20 12:03 Source of Information: Reports: Patient History Limitations: Reports: No Limitations - History of Present Illness INITIAL COMMENTS - FREE TEXT/NARRATIVE: HISTORY AND PHYSICAL: History of present illness: Patient is a 75-year-old male, with a history of COPD, type 2 diabetes on insulin, coronary artery disease status post 1 stent in 2003, who presents emergency room today with concern of right lower quadrant abdominal pain. Patient states the pain has been off and on over the past 1 month but states now over the past 4 to 5 days, the pain has been constant and getting worse. Patient states that he also has associated nausea and has had a few episodes of vomiting and states that it is nonbloody. Patient states he has not vomited today. Patient states that he has had a decrease in appetite but still has been eating and drinking. Patient denies any abdominal surgeries. Patient was admitted to the hospital on 11/25/2020 secondary to COVID-19 viral infection and COPD exacerbation. Patient states that since then, he was discharged on 2 L nasal cannula of oxygen and has been on this constantly since his hospital stay. Patient denies any shortness of breath, increase in productive cough or chest pain. Patient denies any alcohol use or any substance use. Patient denies fever, chills, chest pain, shortness of breath, or cough. Denies headache, neck stiff ness, change in vision, syncope, or near syncope. Denies diarrhea, constipation, or dysuria. Has not noted any blood in urine or stool. Patient has been eating and drinking appropriately. Review of systems: As per history of present illness and below otherwise all systems reviewed and negative. Past medical history: As per history of present illness and as reviewed below otherwise noncontributory. Surgical history: As per history of present illness and as reviewed below otherwise noncontributory. Social history: See social history for further information Family history: As per history of present illness and as reviewed below otherwise noncontr ibutory. Physical exam: General: Patient is alert, oriented, and in no acute distress. Patient pain comfortably on exam table. Vitals stable and reviewed by me HEENT: Atraumatic, normocephalic, pupils equal and reactive bilaterally, negative for conjunctival pallor or scleral icterus, mucous membranes moist, TMs normal bilaterally, throat clear, neck supple, nontender, trachea midline. No drooling or trismus noted. No meningeal signs. No hot potato voice noted. Lungs: Clear to auscultation, breath sounds equal bilaterally, chest nontender. Heart: S1S2, regular rate and rhythm without overt murmur Abdomen: Exam of abdomen limited due to body habitus. BMI 48.4. Soft, nondistended, mild to moderate tenderness of the right lower quadrant. Negative for masses or hepatosplenomegaly. Negative for costovertebral tenderness. Pelvis: Stable nontender. Genitourinary: Deferred. Rectal: Deferred. Skin: Intact, warm, dry. No lesions or rashes noted. Extremities: Atraumatic, negative for cords or calf pain. Neurovascular unremarkable. Neuro: Awake, alert, oriented. Cranial nerves II through XII unremarkable. Cerebellum unremarkable. Motor and sensory unremarkable throughout. Exam nonfocal. Notes: Dr. Rubi verbally involved in patient care including anticoagulation / abx use and disposition for patient. Given patient stable / asymptomatic PE. Patient is a 75-year-old male, with a history of COPD, type 2 diabetes on insulin, and coronary artery disease status post 1 stent, who presents emergency room today with concern of right lower quadrant abdominal pain worsening over the past 4 days but present for the past 1 month. Upon arrival to the ED, patient is vitally stable and well-appearing on exam. Patient does have mild to moderate right lower quadrant tenderness on exam, however, exam of abdomen is limited due to BMI 48.4. Will obtain basic lab work, abdominal pelvic CT scan with contrast. CBC shows a mild leukocytosis of 11.44, decreased white blood cell count of 3.92 , MCV mildly elevated at 99.7, and MCH elevation at 33.4, otherwise mild derangements of CBC unremarkable. CMP shows mild hyponatremia at 135, BUN mildly elevated at 19, elevated glucose at 158, otherwise mild derangements of CMP unremarkable. Urinalysis does show 1+ bacteria with 1-3 white blood cells, 1-3 red blood cells, negative leukocyte esterase, negative nitrite. 30 protein and [address] scan with contrast shows new from comparison suboptimally assessed pulmonary embolism right middle lobe. Possible filling defect right lower lobe. No dependent right pleural effusion. Some mild interstitial edema. Appearance favoring acute cholecystitis. Ultrasound to better characterize. Chronic cholelithiasis filling defects. No choledocholithiasis. Upon reevaluation of patient, he remains vitally stable and comfortable throughout stay in ED. Patient does not have any shortness of breath or chest pain, cough, hemoptysis. Will add on Abd US RUQ and cardiac evaluation. See Dr. Rubi's dictation for specific EKG interpretation. Otherwise, normal sinus rhythm without STEMI. No right heart strain. Troponin elevation at 0.293 (repeat trop mildly improved 0.22), BNP mildly elevated at 144. Right upper quadrant ultrasound shows mild thickening of a mildly distended gallbladder. Acute a cholecystitis cannot be excluded, but the thickening could be a result of mild hypoproteinemia. No sign of cholelithiasis. No biliary duct dilation. Fatty infiltration of the liver. I did call and speak to the general surgeon on-call, and thoroughly discussed patient's case. He states that due to patient's known pulmonary embolism, BCD with a BMI of 48.4, patient is not a candidate for surgery here at our facility and recommends transfer to a higher level of care. He recommends discussing possible surgical intervention with accepting general surgeon as to which anticoagulation is preferred post-op. [place]-at capacity [facility]-at [facility] Angel Jay[place]-at [facility]- at [facility]-at capacity [facility]-at capacity [facility] [place]- at capacity [facility], [place]- at capacity [facility]-at capacity [place]- at capacity [facility] [place]-at capacity Ivory Florez [place]-at capacity [place] , [place]-at [facility] [place]-at [facility] [place], [place]-at [facility] [place], [place]-at [facility] [place], [place]-at [facility], [place], [place]-at capacity Due to such difficulty with finding a facility that has availability to accept patient and discuss with surgeon anticoagulation preference for PE, will initiate Heparin bolus/gtt at this time and provide dose of zosyn given delay of being able to discuss patients care with accepting facility. I did call and speak to Dr. Dorado, general surgery, who does feel that patient is stable from gallbladder standpoint to stay overnight to reassess for possible transfer tomorrow. I did call and speak to the hospitalist rn concurrent review, Dr. Jennings, and thoroughly discussed patient's case. She would like patient to receive another repeat troponin, and discuss with radiology about obtaining Angiography chest PE protocol sooner than the 24 hour contrast rule (as patient had already received IV contrast during abd/pelvic CT scan). Radiologist Dr. Perrin, CRTIS, agreeable to override 24 hour contrast bolus rule to obtain angiography chest PE. Repeat troponin again improving at 0.121. Angiography of chest shows acute p ulmonary thromboemboli right lower lobe, right middle lobe, and left lingula without evidence of right heart strain. Patchy areas of alveolar consolidation in both lungs, highly suggestive of COVID-19 infection. Small right pleural effusion. Upon reevaluation of patient, he remains vitally stable and comfortable throughout stay in ED. He does not express any episodes of chest pain, or shortness of breath. I did call and respeak to Dr. Jennings, who is agreeable to admit patient to inpatient (with possible reevauation of transfer availability in the morning) given patient is stable today in the emergency room, improvement of troponin, and no evidence of right heart strain on angiography chest. Patient transferred to the hospital floor to Dr. Jennings's care in stable condition Diagnostics: CBC, CMP, UA, lipase, abdominal pelvic CT scan with contrast, repeat trop x 2, EKG, Angio chest ct, RUQ US Therapeutics: Saline lock, Toradol, Zofran, Zosyn, Heparin bolus/gtt Impression: Pulmonary embolism, right middle lobe, right lower lobe, left lingula Acute acalculous cholecystitis Plan: Admit to inpatient to Dr. Jennings on telemetry Definitive disposition and diagnosis as appropriate pending reevaluation and review of above. Right Lower Abdominal Pain Score (Numeric/FACES): 2 - Related Data Allergies Allergy/AdvReac Type Severity Reaction Status Date / Time No Known Allergies Allergy Verified 12/30/20 01:38 Home Meds: Home Meds Fluticasone/Salmeterol [Advair Diskus 100-50] 1 puff INH BID 08/06/15 [History] Gabapentin [Neurontin] 600 mg PO TID 08/06/15 [History] Insulin Glarg,Human.Rec.Analog [Lantus] 42 unit SUBCUT QPM 08/06/15 [History] Lisinopril 5 mg PO DAILY 08/06/15 [History] Omeprazole 20 mg PO DAILY 08/06/15 [History] Primidone 500 mg PO BID 08/06/15 [History] Simvastatin 40 mg PO BEDTIME 08/06/15 [History] Tamsulosin [Flomax] 0.4 mg PO DAILY 08/06/15 [History] Furosemide [Lasix] 40 mg PO DAILY #0 08/07/15 [Rx] ALPRAZolam [Alprazolam] 1 mg PO BID PRN 11/25/20 [History] Cyanocobalamin (Vitamin B-12) [Vitamin B-12] 100 mcg PO DAILY 11/25/20 [History] Fluticasone Propionate [Flonase] 2 sprays NASBOTH BEDTIME 11/25/20 [History] Pioglitazone HCl/Metformin HCl [Actoplus Met 15 MG-850 MG] 1 each PO DAILY 11/25/20 [History] Potassium Chloride 10 meq PO DAILY 11/25/20 [History] Topiramate 100 mg PO BID 11/25/20 [History] Albuterol/Ipratropium [Combivent Respimat] 1 puff INH Q4HRRT PRN 12/30/20 [History] Aspirin 325 mg PO DAILY 12/30/20 [History] Past Medical History HEENT History: Reports: Cataract, Sinusitis, Other (See Below) Cardiovascular History: Reports: CAD, High Cholesterol, Hypertension, [place], SOB on Exertion, Stents Respiratory History: Reports: COPD, SOB Gastrointestinal History: Reports: GERD Genitourinary History: Reports: BPH Musculoskeletal History: Reports: Amputation, Other (See Below) Other Musculoskeletal History: right index finger amputation, essential tremor (Parkinsons ruled out) Neurological History: Reports: Neuropathy, Diabetic, Other (See Below) Other Neuro History: tremors Psychiatric History: Reports: Anxiety Endocrine/Metabolic History: Reports: Diabetes, Type II, Hypomagnesemia, Obesity/BMI 30+ Hematologic History: Reports: Anticoagulation Therapy Oncologic (Cancer) History: Reports: Other (See Below) - Infectious Disease History Infectious Disease History: Reports: Chicken Pox, Influenza, Measles - Past Surgical History HEENT Surgical History: Reports: Cataract Surgery Other HEENT Surgeries/Procedures: bilateral eye surgery Cardiovascular Surgical History: Reports: Coronary Artery Stent Male Surgical History: Reports: Vasectomy Musculoskeletal Surgical History: Reports: Amputation Dermatological Surgical History: Reports: None Social & Family History - Family History Family Medical History: No Pertinent Family History - Living Situation & Occupation Occupation: Retired ED ROS GENERAL - Review of Systems Review Of Systems: Comprehensive ROS is negative, except as noted in HPI. ED EXAM, GENERAL - Physical Exam Exam: See Below (see dictation) Course - Vital Signs Last Recorded V/S: Last Vital Signs Temp 97.9 F 12/30/20 07:15 Pulse 96 12/30/20 07:15 Resp 20 12/30/20 07:15 BP 124/64 12/30/20 07:15 Pulse Ox 96 12/30/20 07:15 - Orders/Labs/Meds Orders: Active Orders 24 hr Category Date Time Status CULTURE BLOOD [BC] Stat Lab 12/29/20 19:40 Received CULTURE BLOOD [BC] Stat Lab 12/29/20 19:50 Results Heparin Sodium/0.45% NaCl [Heparin 25,000 Units in 1/2 Med 12/29/20 19:00 Active NS 500 ML] 500 ml IV TITRATE Sodium Chloride 0.9% [Saline Flush] Med 12/29/20 12:24 Active 10 ml FLUSH ASDIRECTED PRN Sodium Chloride 0.9% [Saline Flush] Med 12/29/20 12:24 Active 2.5 ml FLUSH ASDIRECTED PRN Blood Culture x2 Reflex Set [OM.PC] Stat Oth 12/29/20 19:17 Ordered Saline Lock Insert [OM.PC] Stat Oth 12/29/20 12:24 Ordered Medication Orders Acetaminophen (Acetaminophen 325 Mg Tab) 650 mg PO Q4H PRN PRN Reason: Pain (mild 1-3) Albuterol/Ipratropium (Albuterol/Ipratropium 3.0-0.5 Mg/3 Ml Neb Soln) 3 ml NEB Q4HRRT PRN PRN Reason: Shortness Of Breath/wheezing Dextrose/Water (50% Dextrose In Water 50 Ml Syringe) 50 ml IVPUSH ASDIRECTED PRN PRN Reason: Hypoglycemia Glucagon (Glucagon,Human Recombinant 1 Mg Vial) 1 mg IM ASDIRECTED PRN PRN Reason: Hypoglycemia Heparin Sodium/Sodium Chloride (Heparin 25,000 Units In 1/2 Ns 500 Ml) 500 mls @ 25.891 mls/hr IV TITRATE EDI; Protocol Last Titration: 12/30/20 09:47 Dose: 10.7 units/kg/hr, 31.843 mls/hr Documented by: JANKI Cosigned by: PATTIE Titration: 12/30/20 02:57 Dose: 10.7 units/kg/hr, 31.843 mls/hr Documented by: EVERETT Cosigned by: CYNTHIA Admin: 12/29/20 19:40 Dose: 8.7 units/kg/hr, 25.891 mls/hr Documented by: MANDO Cosigned by: MARCELA Lactated Ringer's (Ringers, Lactated) 1,000 mls @ 125 mls/hr IV ASDIRECTED EDI Last Admin: 12/30/20 10:06 Dose: 125 mls/hr Documented by: Infusion: 12/30/20 09:01 Dose: 125 mls/hr Documented by: Admin: 12/30/20 01:01 Dose: 125 mls/hr Documented by: EVERETT Piperacillin Sod/Tazobactam (Sod 3.375 gm/ Sodium Chloride) 50 mls @ 100 mls/hr IV Q8H EDI Last Admin: 12/30/20 02:58 Dose: 100 mls/hr Documented by: EVERETT Insulin Aspart (Insulin Aspart 100 Units/Ml 3 Ml Pen) 0 unit SUBCUT TIDAC EDI; Protocol Last Admin: 12/30/20 07:30 Dose: Not Given Documented by: JANKI Morphine Sulfate (Morphine 2 Mg/Ml Syringe) 2 mg IVPUSH Q4H PRN PRN Reason: Pain (severe 7-10) Last Admin: 12/30/20 00:56 Dose: 2 mg Documented by: EVERETT Ondansetron HCl (Ondansetron 4 Mg/2 Ml Sdv) 4 mg IVPUSH Q4H PRN PRN Reason: Nausea/Vomiting Pantoprazole Sodium (Pantoprazole 40 Mg Vial) 40 mg IV DAILY EDI Last Admin: 12/30/20 08:45 Dose: 40 mg Documented by: REMEDIOS Sodium Chloride (Sodium Chloride 0.9% 10 Ml Syringe) 10 ml FLUSH ASDIRECTED PRN PRN Reason: Keep Vein Open Last Admin: 12/29/20 12:25 Dose: 10 ml Documented by: SHMUEL Sodium Chloride (Sodium Chloride 0.9% 2.5 Ml Syringe) 2.5 ml FLUSH ASDIRECTED PRN PRN Reason: Keep Vein Open Last Admin: 12/29/20 12:43 Dose: 2.5 ml Documented by: SHMUEL Labs: Laboratory Tests 12/29/20 12/29/20 12/29/20 Range/Units 12:18 12:18 12:18 WBC 11.44 H (4.0-11.0) K/uL RBC 3.92 L (4.50-5.90) M/uL Hgb 13.1 (13.0-17.0) g/dL Hct 39.1 (38.0-50.0) % MCV 99.7 H (80.0-98.0) fL MCH 33.4 H (27.0-32.0) pg MCHC 33.5 (31.0-37.0) g/dL RDW Std Deviation 52.5 (28.0-62.0) fl RDW Coeff of Romina 14 (11.0-15.0) % Plt Count 181 (150-400) K/uL MPV 11.90 (7.40-12.00) fL Neut % (Auto) 84.4 H (48.0-80.0) % Lymph % (Auto) 8.7 L (16.0-40.0) % Cascade % (Auto) 6.3 (0.0-15.0) % Eos % (Auto) 0.3 (0.0-7.0) % Baso % (Auto) 0.3 (0.0-1.5) % Neut # (Auto) 9.7 H (1.4-5.7) K/uL Lymph # (Auto) 1.0 (0.6-2.4) K/uL Cascade # (Auto) 0.7 (0.0-0.8) K/uL Eos # (Auto) 0.0 (0.0-0.7) K/uL Baso # (Auto) 0.0 (0.0-0.1) K/uL Nucleated RBC % 0.0 /100WBC Nucleated RBCs # 0 K/uL APTT (18.6-31.3) SEC Sodium 135 L (136-148) mmol/L Potassium 4.1 (3.5-5.1) mmol/L Chloride 100 (98-107) mmol/L Carbon Dioxide 23.5 (21.0-32.0) mmol/L BUN 19 H (7.0-18.0) mg/dL Creatinine 1.0 (0.8-1.3) mg/dL Est Cr Clr Drug Dosing 64.81 mL/min Estimated GFR (MDRD) > 60.0 ml/min Glucose 158 H (74-106) mg/dL Lactic Acid (0.4-2.0) mmol/L Calcium 9.4 (8.5-10.1) mg/dL Magnesium (1.8-2.4) mg/dL Total Bilirubin 0.5 (0.2-1.0) mg/dL AST 23 (15-37) IU/L ALT 23 (14-63) IU/L Alkaline Phosphatase 63 (46-116) U/L Troponin I (0.000-0.056) ng/mL B-Natriuretic Peptide 144 H (<100) PG/ML Total Protein 7.4 (6.4-8.2) g/dL Albumin 2.6 L (3.4-5.0) g/dL Globulin 4.8 H (2.6-4.0) g/dL Albumin/Globulin Ratio 0.5 L (0.9-1.6) Lipase 35 L (73-393) U/L Urine Color Urine Appearance Urine pH (5.0-8.0) Ur Specific Albers (1.001-1.035) Urine Protein (NEGATIVE) mg/dL Urine Glucose (UA) (NEGATIVE) mg/dL Urine Ketones (NEGATIVE) mg/dL Urine Occult Blood (NEGATIVE) Urine Nitrite (NEGATIVE) Urine Bilirubin (NEGATIVE) Urine Urobilinogen (<2.0) EU/dL Ur Leukocyte Esterase (NEGATIVE) Urine RBC (0-2/HPF) Urine WBC (0-5/HPF) Ur Epithelial Cells (NONE-FEW) Urine Bacteria (NEGATIVE) Urine Mucus (NONE-MOD) 12/29/20 12/29/20 12/29/20 Range/Units 12:18 14:30 17:13 WBC (4.0-11.0) K/uL RBC (4.50-5.90) M/uL Hgb (13.0-17.0) g/dL Hct (38.0-50.0) % MCV (80.0-98.0) fL MCH (27.0-32.0) pg MCHC (31.0-37.0) g/dL RDW Std Deviation (28.0-62.0) fl RDW Coeff of Romina (11.0-15.0) % Plt Count (150-400) K/uL MPV (7.40-12.00) fL Neut % (Auto) (48.0-80.0) % Lymph % (Auto) (16.0-40.0) % Cascade % (Auto) (0.0-15.0) % Eos % (Auto) (0.0-7.0) % Baso % (Auto) (0.0-1.5) % Neut # (Auto) (1.4-5.7) K/uL Lymph # (Auto) (0.6-2.4) K/uL Cascade # (Auto) (0.0-0.8) K/uL Eos # (Auto) (0.0-0.7) K/uL Baso # (Auto) (0.0-0.1) K/uL Nucleated RBC % /100WBC Nucleated RBCs # K/uL APTT (18.6-31.3) SEC Sodium (136-148) mmol/L Potassium (3.5-5.1) mmol/L Chloride (98-107) mmol/L Carbon Dioxide (21.0-32.0) mmol/L BUN (7.0-18.0) mg/dL Creatinine (0.8-1.3) mg/dL Est Cr Clr Drug Dosing mL/min Estimated GFR (MDRD) ml/min Glucose (74-106) mg/dL Lactic Acid (0.4-2.0) mmol/L Calcium (8.5-10.1) mg/dL Magnesium (1.8-2.4) mg/dL Total Bilirubin (0.2-1.0) mg/dL AST (15-37) IU/L ALT (14-63) IU/L Alkaline Phosphatase (46-116) U/L Troponin I 0.293 H* 0.220 H* (0.000-0.056) ng/mL B-Natriuretic Peptide (<100) PG/ML Total Protein (6.4-8.2) g/dL Albumin (3.4-5.0) g/dL Globulin (2.6-4.0) g/dL Albumin/Globulin Ratio (0.9-1.6) Lipase (73-393) U/L Urine Color DARK YELLOW Urine Appearance CLEAR Urine pH 5.5 (5.0-8.0) Ur Specific Albers 1.025 (1.001-1.035) Urine Protein 30 H (NEGATIVE) mg/dL Urine Glucose (UA) NEGATIVE (NEGATIVE) mg/dL Urine Ketones 15 H (NEGATIVE) mg/dL Urine Occult Blood NEGATIVE (NEGATIVE) Urine Nitrite NEGATIVE (NEGATIVE) Urine Bilirubin SMALL H (NEGATIVE) Urine Urobilinogen 1.0 (<2.0) EU/dL Ur Leukocyte Esterase NEGATIVE (NEGATIVE) Urine RBC 1-3 (0-2/HPF) Urine WBC 1-3 (0-5/HPF) Ur Epithelial Cells FEW (NONE-FEW) Urine Bacteria 1+ H (NEGATIVE) Urine Mucus HEAVY (NONE-MOD) 12/29/20 12/29/20 12/29/20 Range/Units 18:51 19:29 19:29 WBC (4.0-11.0) K/uL RBC (4.50-5.90) M/uL Hgb (13.0-17.0) g/dL Hct (38.0-50.0) % MCV (80.0-98.0) fL MCH (27.0-32.0) pg MCHC (31.0-37.0) g/dL RDW Std Deviation (28.0-62.0) fl RDW Coeff of Romina (11.0-15.0) % Plt Count (150-400) K/uL MPV (7.40-12.00) fL Neut % (Auto) (48.0-80.0) % Lymph % (Auto) (16.0-40.0) % Cascade % (Auto) (0.0-15.0) % Eos % (Auto) (0.0-7.0) % Baso % (Auto) (0.0-1.5) % Neut # (Auto) (1.4-5.7) K/uL Lymph # (Auto) (0.6-2.4) K/uL Cascade # (Auto) (0.0-0.8) K/uL Eos # (Auto) (0.0-0.7) K/uL Baso # (Auto) (0.0-0.1) K/uL Nucleated RBC % /100WBC Nucleated RBCs # K/uL APTT 23.9 (18.6-31.3) SEC Sodium (136-148) mmol/L Potassium (3.5-5.1) mmol/L Chloride (98-107) mmol/L Carbon Dioxide (21.0-32.0) mmol/L BUN (7.0-18.0) mg/dL Creatinine (0.8-1.3) mg/dL Est Cr Clr Drug Dosing mL/min Estimated GFR (MDRD) ml/min Glucose (74-106) mg/dL Lactic Acid 0.8 (0.4-2.0) mmol/L Calcium (8.5-10.1) mg/dL Magnesium (1.8-2.4) mg/dL Total Bilirubin (0.2-1.0) mg/dL AST (15-37) IU/L ALT (14-63) IU/L Alkaline Phosphatase (46-116) U/L Troponin I 0.134 H* (0.000-0.056) ng/mL B-Natriuretic Peptide (<100) PG/ML Total Protein (6.4-8.2) g/dL Albumin (3.4-5.0) g/dL Globulin (2.6-4.0) g/dL Albumin/Globulin Ratio (0.9-1.6) Lipase (73-393) U/L Urine Color Urine Appearance Urine pH (5.0-8.0) Ur Specific Albers (1.001-1.035) Urine Protein (NEGATIVE) mg/dL Urine Glucose (UA) (NEGATIVE) mg/dL Urine Ketones (NEGATIVE) mg/dL Urine Occult Blood (NEGATIVE) Urine Nitrite (NEGATIVE) Urine Bilirubin (NEGATIVE) Urine Urobilinogen (<2.0) EU/dL Ur Leukocyte Esterase (NEGATIVE) Urine RBC (0-2/HPF) Urine WBC (0-5/HPF) Ur Epithelial Cells (NONE-FEW) Urine Bacteria (NEGATIVE) Urine Mucus (NONE-MOD) 12/29/20 Range/Units 19:29 WBC (4.0-11.0) K/uL RBC (4.50-5.90) M/uL Hgb (13.0-17.0) g/dL Hct (38.0-50.0) % MCV (80.0-98.0) fL MCH (27.0-32.0) pg MCHC (31.0-37.0) g/dL RDW Std Deviation (28.0-62.0) fl RDW Coeff of Romina (11.0-15.0) % Plt Count (150-400) K/uL MPV (7.40-12.00) fL Neut % (Auto) (48.0-80.0) % Lymph % (Auto) (16.0-40.0) % Cascade % (Auto) (0.0-15.0) % Eos % (Auto) (0.0-7.0) % Baso % (Auto) (0.0-1.5) % Neut # (Auto) (1.4-5.7) K/uL Lymph # (Auto) (0.6-2.4) K/uL Cascade # (Auto) (0.0-0.8) K/uL Eos # (Auto) (0.0-0.7) K/uL Baso # (Auto) (0.0-0.1) K/uL Nucleated RBC % /100WBC Nucleated RBCs # K/uL APTT (18.6-31.3) SEC Sodium (136-148) mmol/L Potassium (3.5-5.1) mmol/L Chloride (98-107) mmol/L Carbon Dioxide (21.0-32.0) mmol/L BUN (7.0-18.0) mg/dL Creatinine (0.8-1.3) mg/dL Est Cr Clr Drug Dosing mL/min Estimated GFR (MDRD) ml/min Glucose (74-106) mg/dL Lactic Acid (0.4-2.0) mmol/L Calcium (8.5-10.1) mg/dL Magnesium 2.0 (1.8-2.4) mg/dL Total Bilirubin (0.2-1.0) mg/dL AST (15-37) IU/L ALT (14-63) IU/L Alkaline Phosphatase (46-116) U/L Troponin I (0.000-0.056) ng/mL B-Natriuretic Peptide (<100) PG/ML Total Protein (6.4-8.2) g/dL Albumin (3.4-5.0) g/dL Globulin (2.6-4.0) g/dL Albumin/Globulin Ratio (0.9-1.6) Lipase (73-393) U/L Urine Color Urine Appearance Urine pH (5.0-8.0) Ur Specific Albers (1.001-1.035) Urine Protein (NEGATIVE) mg/dL Urine Glucose (UA) (NEGATIVE) mg/dL Urine Ketones (NEGATIVE) mg/dL Urine Occult Blood (NEGATIVE) Urine Nitrite (NEGATIVE) Urine Bilirubin (NEGATIVE) Urine Urobilinogen (<2.0) EU/dL Ur Leukocyte Esterase (NEGATIVE) Urine RBC (0-2/HPF) Urine WBC (0-5/HPF) Ur Epithelial Cells (NONE-FEW) Urine Bacteria (NEGATIVE) Urine Mucus (NONE-MOD) Meds: Medications Generic Name Dose Route Start Last Admin Trade Name Freq PRN Reason Stop Dose Admin Acetaminophen 650 mg 12/29/20 23:39 Acetaminophen 325 Mg Tab PO Q4H PRN Pain (mild 1-3) Albuterol/Ipratropium 3 ml 12/29/20 23:31 Albuterol/Ipratropium 3.0-0.5 Mg/3 Ml Neb Soln NEB Q4HRRT PRN Shortness Of Breath/wheezing Dextrose/Water 50 ml 12/30/20 03:16 50% Dextrose In Water 50 Ml Syringe IVPUSH ASDIRECTED PRN Hypoglycemia Glucagon 1 mg 12/30/20 03:16 Glucagon,Human Recombinant 1 Mg Vial IM ASDIRECTED PRN Hypoglycemia Heparin Sodium/Sodium Chloride 500 mls @ 25.891 mls/hr 12/29/20 19:00 12/30/20 09:47 Heparin 25,000 Units In 1/2 Ns 500 Ml IV 10.7 units/kg/hr TITRATE EDI 31.843 mls/hr Titration Protocol 8.7 UNITS/KG/HR Lactated Ringer's 1,000 mls @ 125 mls/hr 12/29/20 23:45 12/30/20 10:06 Ringers, Lactated IV 125 mls/hr ASDIRECTED EDI Administration Piperacillin Sod/Tazobactam 50 mls @ 100 mls/hr 12/30/20 03:00 12/30/20 02:58 Sod 3.375 gm/ Sodium Chloride IV 100 mls/hr Q8H EID Administration Insulin Aspart 0 unit 12/30/20 07:30 12/30/20 07:30 Insulin Aspart 100 Units/Ml 3 Ml Pen SUBCUT Not Given TIDAC [facility] Protocol Morphine Sulfate 2 mg 12/29/20 23:38 12/30/20 00:56 Morphine 2 Mg/Ml Syringe IVPUSH 2 mg Q4H PRN Administration Pain (severe 7-10) Ondansetron HCl 4 mg 12/29/20 23:31 Ondansetron 4 Mg/2 Ml Sdv IVPUSH Q4H PRN Nausea/Vomiting Pantoprazole Sodium 40 mg 12/30/20 09:00 12/30/20 08:45 Pantoprazole 40 Mg Vial IV 40 mg DAILY EDI Administration Sodium Chloride 10 ml 12/29/20 12:24 12/29/20 12:25 Sodium Chloride 0.9% 10 Ml Syringe FLUSH 10 ml ASDIRECTED PRN Administration Keep Vein Open Sodium Chloride 2.5 ml 12/29/20 12:24 12/29/20 12:43 Sodium Chloride 0.9% 2.5 Ml Syringe FLUSH 2.5 ml ASDIRECTED PRN Administration Keep Vein Open Discontinued Medications Generic Name Dose Route Start Last Admin Trade Name Freq PRN Reason Stop Dose Admin Aspirin 243 mg 12/29/20 16:54 12/29/20 18:37 Aspirin 81 Mg Tab.Chew PO 12/29/20 16:55 243 mg ONETIME ONE Administration Heparin Sodium (Porcine) 5,000 units 12/29/20 18:48 12/29/20 19:21 Heparin Sodium 5,000 Units/Ml Vial IVPUSH 12/29/20 18:49 5,000 units ONETIME ONE Administration Protocol Heparin Sodium (Porcine) Confirm 12/29/20 19:14 12/29/20 19:44 Heparin Sodium 5,000 Units/Ml Vial Administered 12/29/20 19:15 Not Given Dose 5,000 units .ROUTE .STK-MED ONE Heparin Sodium (Porcine) 1,500 units 12/30/20 02:37 12/30/20 02:51 Heparin Sodium 5,000 Units/Ml Vial IVPUSH 12/30/20 02:38 1,500 units .BOLUS ONE Administration Sodium Chloride 1,000 mls @ 999 mls/hr 12/29/20 18:50 12/29/20 19:33 Normal Saline IV 12/29/20 19:50 999 mls/hr STAT ONE Administration Heparin Sodium/Sodium Chloride Confirm 12/29/20 19:14 12/29/20 19:45 Heparin 25,000 Units In 1/2 Ns 500 Ml Administered 12/29/20 19:15 Not Given Dose 500 mls @ as directed .ROUTE .STK-MED ONE Piperacillin Sod/Tazobactam 100 mls @ 100 mls/hr 12/29/20 19:17 12/29/20 19:45 Sod 4.5 gm/ Sodium Chloride IV 12/29/20 20:16 100 mls/hr ONETIME ONE Administration Iopamidol 100 ml 12/29/20 19:17 12/29/20 19:18 Iopamidol 755 Mg/Ml 500 Ml Multipack Bottle IVPUSH 12/29/20 19:18 100 ml ONETIME STA Administration Iopamidol 100 ml 12/29/20 20:49 12/29/20 21:20 Iopamidol 755 Mg/Ml 500 Ml Multipack Bottle IVPUSH 12/29/20 20:50 100 ml ONETIME ONE Administration Ketorolac Tromethamine 30 mg 12/29/20 12:30 12/29/20 12:42 Ketorolac 30 Mg/Ml Sdv IVPUSH 12/29/20 12:31 30 mg ONETIME ONE Administration Ondansetron HCl 4 mg 12/29/20 12:30 12/29/20 12:35 Ondansetron 4 Mg/2 Ml Sdv IVPUSH 12/29/20 12:31 4 mg ONETIME ONE Administration Ondansetron HCl Confirm 12/29/20 12:46 12/29/20 13:30 Ondansetron 4 Mg/2 Ml Sdv Administered 12/29/20 12:47 Not Given Dose 4 mg .ROUTE .STK-MED ONE Departure - Departure Time of Disposition: 10:13 Disposition: Admitted As Inpatient 67 Clinical Impression: Acalculous cholecystitis Pulmonary embolism Qualifiers: Pulmonary embolism type: unspecified Chronicity: acute Acute cor pulmonale presence: without acute cor pulmonale Qualified Code(s): I26.99 - Other pulmonary embolism without acute cor pulmonale - Discharge Information Sepsis Event Note (ED) - Evaluation Sepsis Screening Result: No Definite Risk - My Orders Last 24 Hours: My Active Orders 12/29/20 12:24 Sodium Chloride 0.9% [Saline Flush] 10 ml FLUSH ASDIRECTED PRN Sodium Chloride 0.9% [Saline Flush] 2.5 ml FLUSH ASDIRECTED PRN Saline Lock Insert [OM.PC] Stat 12/29/20 19:00 Heparin Sodium/0.45% NaCl [Heparin 25,000 Units in 1/2 NS 500 ML] 500 ml IV TITRATE 12/29/20 19:17 Blood Culture x2 Reflex Set [OM.PC] Stat 12/29/20 19:40 CULTURE BLOOD [BC] Stat 12/29/20 19:50 CULTURE BLOOD [BC] Stat - Assessment/Plan Last 24 Hours: My Active Orders 12/29/20 12:24 Sodium Chloride 0.9% [Saline Flush] 10 ml FLUSH ASDIRECTED PRN Sodium Chloride 0.9% [Saline Flush] 2.5 ml FLUSH ASDIRECTED PRN Saline Lock Insert [OM.PC] Stat 12/29/20 19:00 Heparin Sodium/0.45% NaCl [Heparin 25,000 Units in 1/2 NS 500 ML] 500 ml IV TITRATE 12/29/20 19:17 Blood Culture x2 Reflex Set [OM.PC] Stat 12/29/20 19:40 CULTURE BLOOD [BC] Stat 12/29/20 19:50 CULTURE BLOOD [BC] Stat
--- NOTE | 2020-12-29 15:45 | CT ---
INDICATION: Right lower quadrant pain. COMPARISON: CT angio chest 25 November 2020. TECHNIQUE: 100 mL Isovue-370 IV contrast. FINDINGS: Small right dependent pleural effusion. Minor strandy atelectasis at both bases. Likely some degree of fibrosis. Incomplete visualization of pulmonary embolism low-attenuation filling defect right middle lobe proximal vessel at the origin (image 8 series 201). Some likely filling defect in the posterior right lower lobe as well. Steatosis of the liver. Cholelithiasis with hazy attenuation around the thickened gallbladder. No biliary ductal dilatation. Multiple parapelvic cysts of the left greater than right kidney. Small parenchymal cyst lateral midpole left kidney. Normal infra cecal appendix. No inflammation or dilatation of large or small bowel. No blastic or lytic lesion. IMPRESSION: 1. New from comparison suboptimally assessed pulmonary embolism right middle lobe. Possible filling defect right lower lobe. New dependent right pleural effusion. Some mild interstitial edema. 2. Appearance favoring acute cholecystitis. Ultrasound would better characterize. Chronic cholelithiasis filling defects. No choledocholithiasis. 3. Results discussed with and acknowledged by ordering provider Melia Fernando at 1544 12/29/[address] Please note that all CT scans at this facility use dose modulation, iterative reconstruction, and/or weight-based dosing when appropriate to reduce radiation dose to as low as reasonably achievable. Dictated by Dg Granado MD @ 12/29/2020 3:40:56 PM (Electronically Signed)
[2020-12-29] MEDS ORDERED: Aspirin 81 MG Tab.Chew PO ONE (16:54)
--- NOTE | 2020-12-29 16:58 | US ---
INDICATION: Right lower quadrant pain. Concern for acute cholecystitis on CT from today. COMPARISON: CT of the abdomen and pelvis from today. TECHNIQUE: Ultrasound examination of the right upper quadrant was performed. FINDINGS: There is mild thickening of the mildly dilated gallbladder wall at 4 millimeters, corresponding to the appearance on CT. However, a sonographic Nascimento sign is not present and there is no sign of any pericholecystic fluid. There is no sign of cholelithiasis or gallbladder sludge. The findings are not suggestive of acute cholecystitis, although this cannot be entirely excluded. The thickening of the gallbladder wall could be from hypoproteinemia, but there is no sign of ascites. The common bile duct is normal in caliber at 4 mm. The pancreas is partially obscured by bowel gas. The visualized portion of the pancreatic head and body are normal in appearance. The liver shows no sign of mass or contour abnormality, and there is no sign of ascites. There is increased hepatic echogenicity consistent with fatty infiltration of the liver, not evident on today`s CT. The right kidney is unremarkable. IMPRESSION: Nonspecific mild thickening of the wall of the mildly distended gallbladder. No sonographic Nascimento sign to suggest acute cholecystitis. Acute cholecystitis cannot be excluded, but the thickening could be the result of mild hypoproteinemia. No sign of cholelithiasis. No sign of biliary ductal dilatation. Fatty infiltration of the liver. Dictated by Kam Cruz MD @ 12/29/2020 4:57:24 PM (Electronically Signed)
--- NOTE | 2020-12-29 17:44 | PCM.EKG ---
#1 Interpretation EKG Date: 12/29/20 Time: 16:37 Rhythm: NSR Rate (Beats/Min): 81 [place]: Normal P-Wave: Present QRS: Normal ST-T: Normal QT: Normal Comparison: No Change (12/29/20) EKG Interpretation Comments: Sinus Rhythm
[2020-12-29] MEDS ORDERED: Heparin Sodium 5,000 Units/ML Vial IVPUSH ONE (18:48)
[2020-12-29] MEDS ORDERED: Sodium Chloride 0.9% 1,000 ML IV ONE (18:50)
[2020-12-29] MEDS ORDERED: Heparin Sodium/0.45% NaCl 500 ML IV SCH (19:00)
[2020-12-29] MEDS ORDERED: Heparin Sodium 5,000 Units/ML Vial ONE (19:14)
[2020-12-29] MEDS ORDERED: Heparin Sodium/0.45% NaCl 500 ML ONE (19:14)
[2020-12-29] MEDS ORDERED: Piperacillin/Tazobactam 4.5 GM in Sodium Chloride 0.9% 100 ML IV ONE (19:17)
[2020-12-29] MEDS ORDERED: Iopamidol 755 MG/ML 500 ML Multipack Bottle IVPUSH STA (19:17)
[2020-12-29] MEDS ORDERED: Iopamidol 755 MG/ML 500 ML Multipack Bottle IVPUSH ONE (20:49)
--- NOTE | 2020-12-29 21:53 | CT ---
INDICATION: PE seen on the abdominal CT; further assessment. COMPARISON: CT abdomen and pelvis December 29, 2020; CT chest with intravenous contrast November 25, 2020. TECHNIQUE: CT chest with intravenous contrast; coronal and sagittal reformats. FINDINGS: Acute pulmonary thromboemboli identified involving the right middle lobe, right lower lobe and left lingula. Normal size cardiac silhouette without any CT evidence of right heart strain. No abnormal mediastinal or hilar lymphadenopathy . Small right-sided pleural effusion. patchy areas of ground-glass opacities both lungs; suggestive but not diagnostic of COVID-[address] through the upper abdomen is unremarkable. The. IMPRESSION: 1. Acute pulmonary thromboemboli right lower lobe, right middle lobe and left lingula without any evidence of right heart strain . 2. Patchy areas of alveolar consolidation both lungs; highly suggestive but not diagnostic of COVID-19 infection. 3. Small right-sided pleural effusion. Please note that all CT scans at this facility use dose modulation, iterative reconstruction, and/or weight-based dosing when appropriate to reduce radiation dose to as low as reasonably achievable. Dictated by Tae Treviño MD @ 12/29/2020 9:51:18 PM (Electronically Signed)
[2020-12-29] MEDS ORDERED: Albuterol/Ipratropium 3.0-0.5 MG/3 ML Neb Soln NEB PRN (23:31)
[2020-12-29] MEDS ORDERED: Ondansetron 4 MG/2 ML SDV IVPUSH PRN (23:31)
[2020-12-29] MEDS ORDERED: Morphine 2 MG/ML SYRINGE IVPUSH PRN (23:38)
[2020-12-29] MEDS ORDERED: Acetaminophen 325 MG Tab PO PRN (23:39)
[2020-12-30] MEDS: Lactated Ringers 1,000 ML IV SCH ×2 (01:01→10:06)
[2020-12-30] MEDS ORDERED: Heparin Sodium 5,000 Units/ML Vial IVPUSH ONE (02:37)
[2020-12-30] MEDS: Piperacillin/Tazobactam 3.375 GM in Sodium Chloride 0.9% 50 ML IV SCH ×3 (02:58→18:42)
[2020-12-30] MEDS ORDERED: 50% Dextrose in Water 50 ML Syringe IVPUSH PRN (03:16)
[2020-12-30] MEDS ORDERED: Glucagon,Human Recombinant 1 MG Vial IM PRN (03:16)
[2020-12-30 06:37] LABS: BLOOD UREA NITROGEN,BUN 19 mg/dL (7.0-18.0); CARBON DIOXIDE,CO2 25.2 mmol/L (21.0-32.0); CHLORIDE,CL 103 mmol/L (98-107); GLUCOSE RANDOM 96 mg/dL (74-106); SODIUM,NA 135 mmol/L (136-148)
[2020-12-30] MEDS: Insulin Aspart 100 Units/ML 3 ML Pen SUBCUT SCH ×3 (07:30→18:18)
--- NOTE | 2020-12-30 08:15 | PCM.HP.2 ---
H&P History of Present Illness - General Date of Service: 12/30/20 Admit Problem/Dx: Admission Diagnosis/Problem Admission Diagnosis/Problem Pulmonary embolism Source of Information: Patient History Limitations: Reports: No Limitations - History of Present Illness Initial Comments - Free Text/Narative: This 76-year-old male with past medical history of CHF, CAD, HTN, HLD, DM type II, COPD and obesity with recent Covid 19 infection presented to the ER with complaints of right-sided flank and abdominal pain. He reports that this pain presented itself initially 1 month ago he did not think much of it had some mild nausea and vomiting but this is coinciding with his Covid infection. He report that on the pain started sharp shooting with associated nausea vomiting and poor appetite. He reports that the pain became too much so he decided to be evaluated in the ER. He denies any history of black or bloody bowel movements per denies any recent bowel habit changes. He reports some mild diarrhea. He reports he has been short of breath since COVID-19 diagnosis and treatment. He was admitted for approximately 4 days and treated with remdesivir and dexame thasone. On discharge she was discharged home on 2 L of oxygen which she has remained on since then. Patient has any overt chest pain but does have the right flank pain with intermittent pain on taking deep breaths. Denies any hemoptysis. Denies any history of blood clots in the past. He denies any tobacco use no alcohol use and no recreational drug use. in the ER mild leukocytosis noted 11,000. Platelets 181,000. Sodium 135 potassium 4.1. BUN 19 creatinine 1.0 glucose 158 lactic acid 0.8 troponin initially elevated at 0.293 trended down to 0.134 and subsequently further to 0.121. Patient denied any chest pain. BNP 144 lipase 35 UA showed dark yellow urine with small amount of bilirubin negative nitrites and negative leukocyte esterase WBC 1-3 +1 bacteria few epithelial cells. In the ER CT abdomen pelvis obtained which revealed suboptimally assessed pulmonary embolism in the right middle lobe possible filling defect right lower lobe. New dependent right pleural effusion some mild interstitial edema. Appearance of gallbladder is favoring acute cholecystitis with hazy attenuation around the thickened gallbladder no biliary duct dilation. Recommended abdominal ultrasound to better characterize. Abdominal ultrasound revealed mild thickening of mildly dilated gallbladder wall at 4 mm no sonographic Nascimento sign present. And no pericholecystic fluid. No cholelithiasis or gallbladder sludge noted. Findings not suggestive of acute cholecystitis. Although this could not be entirely excluded. Dr. Dorado, general surgery contacted regarding CT findings did not recommend this patient poor surgical candidate within our facility and recommended transfer to higher level of care. CT angio obtained which revealed acute pulmonary thromboemboli identified involving the right middle lobe right lower lobe and left lingula no heart strain noted on CT. Small right-sided pleural effusion patchy areas of groundglass opacities both lungs likely residual from COVID-19 infection. It was attempted to transfer patient but due to current pandemic situation no bed availability at this time. Patient admitted for stabilization and anticoagulation at this time. As it is felt the pain is likely more secondary to PE then gallbladder. Patient to be admitted inpatient for acute pulmonary embolism. Right Lower Abdominal Pain Score (Numeric/FACES): 2 - Related Data Allergies/Adverse Reactions: Allergies Allergy/AdvReac Type Severity Reaction Status Date / Time No Known Allergies Allergy Verified 12/30/20 01:38 Home Medications: Home Meds Fluticasone/Salmeterol [Advair Diskus 100-50] 1 puff INH BID 08/06/15 [History] Gabapentin [Neurontin] 600 mg PO TID 08/06/15 [History] Insulin Glarg,Human.Rec.Analog [Lantus] 42 unit SUBCUT QPM 08/06/15 [History] Lisinopril 5 mg PO DAILY 08/06/15 [History] Omeprazole 20 mg PO DAILY 08/06/15 [History] Primidone 500 mg PO BID 08/06/15 [History] Simvastatin 40 mg PO BEDTIME 08/06/15 [History] Tamsulosin [Flomax] 0.4 mg PO DAILY 08/06/15 [History] Furosemide [Lasix] 40 mg PO DAILY #0 08/07/15 [Rx] ALPRAZolam [Alprazolam] 1 mg PO BID PRN 11/25/20 [History] Cyanocobalamin (Vitamin B-12) [Vitamin B-12] 100 mcg PO DAILY 11/25/20 [History] Fluticasone Propionate [Flonase] 2 sprays NASBOTH BEDTIME 11/25/20 [History] Pioglitazone HCl/Metformin HCl [Actoplus Met 15 MG-850 MG] 15 - 180 mg PO DAILY 11/25/20 [History] Potassium Chloride 10 meq PO DAILY 11/25/20 [History] Albuterol/Ipratropium [Combivent Respimat] 1 puff INH Q4HRRT PRN 12/30/20 [History] Aspirin [Aspirin EC] 81 mg PO DAILY 12/30/20 [History] Topiramate [Topamax] 50 mg PO BID 12/30/20 [History] Past Medical History HEENT History: Reports: Cataract, Sinusitis, Other (See Below) Cardiovascular History: Reports: CAD, High Cholesterol, Hypertension, [place], SOB on Exertion, Stents Respiratory History: Reports: COPD, SOB Gastrointestinal History: Reports: GERD Other Gastrointestinal History: Here for lower abdominal pain Genitourinary History: Reports: BPH Musculoskeletal History: Reports: Amputation, Other (See Below) Other Musculoskeletal History: right index finger amputation, essential tremor (Parkinsons ruled out) Neurological History: Reports: Neuropathy, Diabetic, Other (See Below) Other Neuro History: tremors Psychiatric History: Reports: Anxiety Endocrine/Metabolic History: Reports: Diabetes, Type II, Hypomagnesemia, Ob esity/BMI 30+ Insulin Pump Management Assessment Comments: Takes Lantus 42 units Hematologic History: Reports: Anticoagulation Therapy Oncologic (Cancer) History: Reports: Other (See Below) - Infectious Disease History Infectious Disease History: Reports: Chicken Pox, Influenza, Measles - Past Surgical History Head Surgeries/Procedures: Reports: None HEENT Surgical History: Reports: Cataract Surgery Other HEENT Surgeries/Procedures: bilateral eye surgery Cardiovascular Surgical History: Reports: Coronary Artery Stent Male Surgical History: Reports: Vasectomy Musculoskeletal Surgical History: Reports: Amputation Dermatological Surgical History: Reports: None Social & Family History - Family History Family Medical History: No Pertinent Family History - Tobacco Use Tobacco Use Status *Q: Former Tobacco User Used Tobacco, but Quit: Yes Month/Year Tobacco Last Used: 40 Second Hand Smoke Exposure: No - Caffeine Use Caffeine Use: Reports: Soda - Recreational Drug Use Recreational Drug Use: No - Living Situation & Occupation Occupation: Retired H&P Review of Systems - Review of Systems: Review Of Systems: See Below General: Reports: Malaise. Denies: Fever, Chills HEENT: Reports: No Symptoms. Denies: Headaches, Sinus Congestion, Sore Throat Pulmonary: Reports: Shortness of Breath (Has been baseline since diagnosis and treatment of COVID-19). Denies: Wheezing, Cough Cardiovascular: Reports: Dyspnea on Exertion, Edema (Lower leg edema stable at baseline). Denies: Chest Pain, Palpitations Gastrointestinal: Reports: Abdominal Pain (Upper right abdominal pain and into flank/rib cage region.), Diarrhea, Decreased Appetite, Nausea (Nausea significantly improved from arrival in ER last evening was able to tolerate diet today), Vomiting Genitourinary: Reports: No Symptoms. Denies: Dysuria, Frequency, Burning Skin: Reports: No Symptoms Psychiatric: Reports: No Symptoms Neurological: Reports: Tremors (Familial tremors at baseline) Hematologic/Lymphatic: Reports: No Symptoms Immunologic: Reports: No Symptoms Exam - Exam Exam: See Below - Vital Signs Vital Signs: Last Vital Signs Temp 97.9 F 12/30/20 07:15 Pulse 96 12/30/20 07:15 Resp 20 12/30/20 07:15 BP 124/64 12/30/20 07:15 Pulse Ox 96 12/30/20 07:15 Weight: 148.8 kg - Exam Quality Assessment: Supplemental Oxygen (2 L nasal cannula), DVT Prophylaxis (Heparin drip) General: Alert, Oriented, Cooperative HEENT: Conjunctiva Clear, Mucosa Moist & [place], Posterior Pharynx Clear Lungs: Crackles (Crackles bibasilar). No: Normal Respiratory Effort (Mild dyspnea) Cardiovascular: Regular Rate, Regular Rhythm, Normal S1, Normal S2. No: Systolic Murmur GI/Abdominal Exam: Normal Bowel Sounds, Soft, Non-Tender Extremities: Normal Inspection, Normal Range of Motion, Non-Tender, Pedal Edema (2+ nonpitting edema bilateral lower extremities reports this is baseline) Neuro Extensive - Mental Status: Alert, Oriented x3 Neuro Extensive - Motor, Sensory, Reflexes: CN II-XII Intact, Normal Gait Psychiatric: Alert, Normal Affect, Normal Mood - Patient Data Lab Results Last 24 hrs: Laboratory Results - last 24 hr 12/29/20 12/29/20 12/29/20 Range/Units 12:18 12:18 12:18 WBC 11.44 H (4.0-11.0) K/uL RBC 3.92 L (4.50-5.90) M/uL Hgb 13.1 (13.0-17.0) g/dL Hct 39.1 (38.0-50.0) % MCV 99.7 H (80.0-98.0) fL MCH 33.4 H (27.0-32.0) pg MCHC 33.5 (31.0-37.0) g/dL RDW Std Deviation 52.5 (28.0-62.0) fl RDW Coeff of [place] 14 (11.0-15.0) % Plt Count 181 (150-400) K/uL MPV 11.90 (7.40-12.00) fL Neut % (Auto) 84.4 H (48.0-80.0) % Lymph % (Auto) 8.7 L (16.0-40.0) % [place] % (Auto) 6.3 (0.0-15.0) % Eos % (Auto) 0.3 (0.0-7.0) % Baso % (Auto) 0.3 (0.0-1.5) % Neut # (Auto) 9.7 H (1.4-5.7) K/uL Lymph # (Auto) 1.0 (0.6-2.4) K/uL [place] # (Auto) 0.7 (0.0-0.8) K/uL Eos # (Auto) 0.0 (0.0-0.7) K/uL Baso # (Auto) 0.0 (0.0-0.1) K/uL Nucleated RBC % 0.0 /100WBC Nucleated RBCs # 0 K/uL APTT (18.6-31.3) SEC Sodium 135 L (136-148) mmol/L Potassium 4.1 (3.5-5.1) mmol/L Chloride 100 (98-107) mmol/L Carbon Dioxide 23.5 (21.0-32.0) mmol/L BUN 19 H (7.0-18.0) mg/dL Creatinine 1.0 (0.8-1.3) mg/dL Est Cr Clr Drug Dosing 64.81 mL/min Estimated GFR (MDRD) > 60.0 ml/min Glucose 158 H (74-106) mg/dL POC Glucose (70-99) mg/dL Lactic Acid (0.4-2.0) mmol/L Calcium 9.4 (8.5-10.1) mg/dL Phosphorus (2.6-4.7) mg/dL Magnesium (1.8-2.4) mg/dL Total Bilirubin 0.5 (0.2-1.0) mg/dL AST 23 (15-37) IU/L ALT 23 (14-63) IU/L Alkaline Phosphatase 63 (46-116) U/L Troponin I (0.000-0.056) ng/mL B-Natriuretic Peptide 144 H (<100) PG/ML Total Protein 7.4 (6.4-8.2) g/dL Albumin 2.6 L (3.4-5.0) g/dL Globulin 4.8 H (2.6-4.0) g/dL Albumin/Globulin Ratio 0.5 L (0.9-1.6) Lipase 35 L (73-393) U/L Urine Color Urine Appearance Urine pH (5.0-8.0) Ur Specific [place] (1.001-1.035) Urine Protein (NEGATIVE) mg/dL Urine Glucose (UA) (NEGATIVE) mg/dL Urine Ketones (NEGATIVE) mg/dL Urine Occult Blood (NEGATIVE) Urine Nitrite (NEGATIVE) Urine Bilirubin (NEGATIVE) Urine Urobilinogen (<2.0) EU/dL Ur Leukocyte Esterase (NEGATIVE) Urine RBC (0-2/HPF) Urine WBC (0-5/HPF) Ur Epithelial Cells (NONE-FEW) Urine Bacteria (NEGATIVE) Urine Mucus (NONE-MOD) 12/29/20 12/29/20 12/29/20 Range/Units 12:18 14:30 17:13 WBC (4.0-11.0) K/uL RBC (4.50-5.90) M/uL Hgb (13.0-17.0) g/dL Hct (38.0-50.0) % MCV (80.0-98.0) fL MCH (27.0-32.0) pg MCHC (31.0-37.0) g/dL RDW Std Deviation (28.0-62.0) fl RDW Coeff of [place] (11.0-15.0) % Plt Count (150-400) K/uL MPV (7.40-12.00) fL Neut % (Auto) (48.0-80.0) % Lymph % (Auto) (16.0-40.0) % [place] % (Auto) (0.0-15.0) % Eos % (Auto) (0.0-7.0) % Baso % (Auto) (0.0-1.5) % Neut # (Auto) (1.4-5.7) K/uL Lymph # (Auto) (0.6-2.4) K/uL [place] # (Auto) (0.0-0.8) K/uL Eos # (Auto) (0.0-0.7) K/uL Baso # (Auto) (0.0-0.1) K/uL Nucleated RBC % /100WBC Nucleated RBCs # K/uL APTT (18.6-31.3) SEC Sodium (136-148) mmol/L Potassium (3.5-5.1) mmol/L Chloride (98-107) mmol/L Carbon Dioxide (21.0-32.0) mmol/L BUN (7.0-18.0) mg/dL Creatinine (0.8-1.3) mg/dL Est Cr Clr Drug Dosing mL/min Estimated GFR (MDRD) ml/min Glucose (74-106) mg/dL POC Glucose (70-99) mg/dL Lactic Acid (0.4-2.0) mmol/L Calcium (8.5-10.1) mg/dL Phosphorus (2.6-4.7) mg/dL Magnesium (1.8-2.4) mg/dL Total Bilirubin (0.2-1.0) mg/dL AST (15-37) IU/L ALT (14-63) IU/L Alkaline Phosphatase (46-116) U/L Troponin I 0.293 H* 0.220 H* (0.000-0.056) ng/mL B-Natriuretic Peptide (<100) PG/ML Total Protein (6.4-8.2) g/dL Albumin (3.4-5.0) g/dL Globulin (2.6-4.0) g/dL Albumin/Globulin Ratio (0.9-1.6) Lipase (73-393) U/L Urine Color DARK YELLOW Urine Appearance CLEAR Urine pH 5.5 (5.0-8.0) Ur Specific [place] 1.025 (1.001-1.035) Urine Protein 30 H (NEGATIVE) mg/dL Urine Glucose (UA) NEGATIVE (NEGATIVE) mg/dL Urine Ketones 15 H (NEGATIVE) mg/dL Urine Occult Blood NEGATIVE (NEGATIVE) Urine Nitrite NEGATIVE (NEGATIVE) Urine Bilirubin SMALL H (NEGATIVE) Urine Urobilinogen 1.0 (<2.0) EU/dL Ur Leukocyte Esterase NEGATIVE (NEGATIVE) Urine RBC 1-3 (0-2/HPF) Urine WBC 1-3 (0-5/HPF) Ur Epithelial Cells FEW (NONE-FEW) Urine Bacteria 1+ H (NEGATIVE) Urine Mucus HEAVY (NONE-MOD) 12/29/20 12/29/20 12/29/20 Range/Units 18:51 19:29 19:29 WBC (4.0-11.0) K/uL RBC (4.50-5.90) M/uL Hgb (13.0-17.0) g/dL Hct (38.0-50.0) % MCV (80.0-98.0) fL MCH (27.0-32.0) pg MCHC (31.0-37.0) g/dL RDW Std Deviation (28.0-62.0) fl RDW Coeff of [place] (11.0-15.0) % Plt Count (150-400) K/uL MPV (7.40-12.00) fL Neut % (Auto) (48.0-80.0) % Lymph % (Auto) (16.0-40.0) % [place] % (Auto) (0.0-15.0) % Eos % (Auto) (0.0-7.0) % Baso % (Auto) (0.0-1.5) % Neut # (Auto) (1.4-5.7) K/uL Lymph # (Auto) (0.6-2.4) K/uL [place] # (Auto) (0.0-0.8) K/uL Eos # (Auto) (0.0-0.7) K/uL Baso # (Auto) (0.0-0.1) K/uL Nucleated RBC % /100WBC Nucleated RBCs # K/uL APTT 23.9 (18.6-31.3) SEC Sodium (136-148) mmol/L Potassium (3.5-5.1) mmol/L Chloride (98-107) mmol/L Carbon Dioxide (21.0-32.0) mmol/L BUN (7.0-18.0) mg/dL Creatinine (0.8-1.3) mg/dL Est Cr Clr Drug Dosing mL/min Estimated GFR (MDRD) ml/min Glucose (74-106) mg/dL POC Glucose (70-99) mg/dL Lactic Acid 0.8 (0.4-2.0) mmol/L Calcium (8.5-10.1) mg/dL Phosphorus (2.6-4.7) mg/dL Magnesium (1.8-2.4) mg/dL Total Bilirubin (0.2-1.0) mg/dL AST (15-37) IU/L ALT (14-63) IU/L Alkaline Phosphatase (46-116) U/L Troponin I 0.134 H* (0.000-0.056) ng/mL B-Natriuretic Peptide (<100) PG/ML Total Protein (6.4-8.2) g/dL Albumin (3.4-5.0) g/dL Globulin (2.6-4.0) g/dL Albumin/Globulin Ratio (0.9-1.6) Lipase (73-393) U/L Urine Color Urine Appearance Urine pH (5.0-8.0) Ur Specific [place] (1.001-1.035) Urine Protein (NEGATIVE) mg/dL Urine Glucose (UA) (NEGATIVE) mg/dL Urine Ketones (NEGATIVE) mg/dL Urine Occult Blood (NEGATIVE) Urine Nitrite (NEGATIVE) Urine Bilirubin (NEGATIVE) Urine Urobilinogen (<2.0) EU/dL Ur Leukocyte Esterase (NEGATIVE) Urine RBC (0-2/HPF) Urine WBC (0-5/HPF) Ur Epithelial Cells (NONE-FEW) Urine Bacteria (NEGATIVE) Urine Mucus (NONE-MOD) 12/29/20 12/30/20 12/30/20 Range/Units 19:29 01:40 05:20 WBC (4.0-11.0) K/uL RBC (4.50-5.90) M/uL Hgb (13.0-17.0) g/dL Hct (38.0-50.0) % MCV (80.0-98.0) fL MCH (27.0-32.0) pg MCHC (31.0-37.0) g/dL RDW Std Deviation (28.0-62.0) fl RDW Coeff of [place] (11.0-15.0) % Plt Count (150-400) K/uL MPV (7.40-12.00) fL Neut % (Auto) (48.0-80.0) % Lymph % (Auto) (16.0-40.0) % [place] % (Auto) (0.0-15.0) % Eos % (Auto) (0.0-7.0) % Baso % (Auto) (0.0-1.5) % Neut # (Auto) (1.4-5.7) K/uL Lymph # (Auto) (0.6-2.4) K/uL [place] # (Auto) (0.0-0.8) K/uL Eos # (Auto) (0.0-0.7) K/uL Baso # (Auto) (0.0-0.1) K/uL Nucleated RBC % /100WBC Nucleated RBCs # K/uL APTT 42.2 H (18.6-31.3) SEC Sodium 135 L (136-148) mmol/L Potassium 4.0 (3.5-5.1) mmol/L Chloride 103 (98-107) mmol/L Carbon Dioxide 25.2 (21.0-32.0) mmol/L BUN 19 H (7.0-18.0) mg/dL Creatinine 0.9 (0.8-1.3) mg/dL Est Cr Clr Drug Dosing 72.01 mL/min Estimated GFR (MDRD) > 60.0 ml/min Glucose 96 (74-106) mg/dL POC Glucose (70-99) mg/dL Lactic Acid (0.4-2.0) mmol/L Calcium 8.5 (8.5-10.1) mg/dL Phosphorus 3.1 (2.6-4.7) mg/dL Magnesium 2.0 2.0 (1.8-2.4) mg/dL Total Bilirubin (0.2-1.0) mg/dL AST (15-37) IU/L ALT (14-63) IU/L Alkaline Phosphatase (46-116) U/L Troponin I 0.121 H* (0.000-0.056) ng/mL B-Natriuretic Peptide (<100) PG/ML Total Protein (6.4-8.2) g/dL Albumin (3.4-5.0) g/dL Globulin (2.6-4.0) g/dL Albumin/Globulin Ratio (0.9-1.6) Lipase (73-393) U/L Urine Color Urine Appearance Urine pH (5.0-8.0) Ur Specific [place] (1.001-1.035) Urine Protein (NEGATIVE) mg/dL Urine Glucose (UA) (NEGATIVE) mg/dL Urine Ketones (NEGATIVE) mg/dL Urine Occult Blood (NEGATIVE) Urine Nitrite (NEGATIVE) Urine Bilirubin (NEGATIVE) Urine Urobilinogen (<2.0) EU/dL Ur Leukocyte Esterase (NEGATIVE) Urine RBC (0-2/HPF) Urine WBC (0-5/HPF) Ur Epithelial Cells (NONE-FEW) Urine Bacteria (NEGATIVE) Urine Mucus (NONE-MOD) 12/30/20 12/30/20 12/30/20 Range/Units 05:20 06:50 07:47 WBC 8.49 (4.0-11.0) K/uL RBC 3.41 L (4.50-5.90) M/uL Hgb 11.4 L (13.0-17.0) g/dL Hct 34.4 L (38.0-50.0) % MCV 100.9 H (80.0-98.0) fL MCH 33.4 H (27.0-32.0) pg MCHC 33.1 (31.0-37.0) g/dL RDW Std Deviation 53.9 (28.0-62.0) fl RDW Coeff of [place] 15 (11.0-15.0) % Plt Count 182 (150-400) K/uL MPV 12.50 H (7.40-12.00) fL Neut % (Auto) 78.1 (48.0-80.0) % Lymph % (Auto) 13.1 L (16.0-40.0) % [place] % (Auto) 7.7 (0.0-15.0) % Eos % (Auto) 0.9 (0.0-7.0) % Baso % (Auto) 0.2 (0.0-1.5) % Neut # (Auto) 6.6 H (1.4-5.7) K/uL Lymph # (Auto) 1.1 (0.6-2.4) K/uL [place] # (Auto) 0.7 (0.0-0.8) K/uL Eos # (Auto) 0.1 (0.0-0.7) K/uL Baso # (Auto) 0.0 (0.0-0.1) K/uL Nucleated RBC % 0.0 /100WBC Nucleated RBCs # 0 K/uL APTT (18.6-31.3) SEC Sodium (136-148) mmol/L Potassium (3.5-5.1) mmol/L Chloride (98-107) mmol/L Carbon Dioxide (21.0-32.0) mmol/L BUN (7.0-18.0) mg/dL Creatinine (0.8-1.3) mg/dL Est Cr Clr Drug Dosing mL/min Estimated GFR (MDRD) ml/min Glucose (74-106) mg/dL POC Glucose 78 106 H (70-99) mg/dL Lactic Acid (0.4-2.0) mmol/L Calcium (8.5-10.1) mg/dL Phosphorus (2.6-4.7) mg/dL Magnesium (1.8-2.4) mg/dL Total Bilirubin (0.2-1.0) mg/dL AST (15-37) IU/L ALT (14-63) IU/L Alkaline Phosphatase (46-116) U/L Troponin I (0.000-0.056) ng/mL B-Natriuretic Peptide (<100) PG/ML Total Protein (6.4-8.2) g/dL Albumin (3.4-5.0) g/dL Globulin (2.6-4.0) g/dL Albumin/Globulin Ratio (0.9-1.6) Lipase (73-393) U/L Urine Color Urine Appearance Urine pH (5.0-8.0) Ur Specific [place] (1.001-1.035) Urine Protein (NEGATIVE) mg/dL Urine Glucose (UA) (NEGATIVE) mg/dL Urine Ketones (NEGATIVE) mg/dL Urine Occult Blood (NEGATIVE) Urine Nitrite (NEGATIVE) Urine Bilirubin (NEGATIVE) Urine Urobilinogen (<2.0) EU/dL Ur Leukocyte Esterase (NEGATIVE) Urine RBC (0-2/HPF) Urine WBC (0-5/HPF) Ur Epithelial Cells (NONE-FEW) Urine Bacteria (NEGATIVE) Urine Mucus (NONE-MOD) Result Diagrams: 12/30/20 05:20 12/30/20 05:20 [place] Results Last 24 hrs: Microbiology 12/29/20 19:50 Anaerobic Blood Culture - Final Blood - Venous - Lab Draw Sepsis Event Note - Evaluation Sepsis Screening Result: No Definite Risk - Focused Exam Vital Signs: Vital Signs Temp Pulse Resp BP BP Pulse Ox 12/30/20 07:15 97.9 F 96 20 124/64 96 12/30/20 03:10 98.1 F 90 18 131/80 96 12/29/20 23:48 97.8 F 86 19 108/57 L 98 12/29/20 23:00 89 18 117/74 98 - Problem List (1) Pulmonary embolism SNOMED Code(s): 64895942 ICD Code: I26.99 - OTHER PULMONARY EMBOLISM WITHOUT ACUTE COR PULMONALE Sta tus: Acute Current Visit: Yes Qualifiers: Pulmonary embolism type: unspecified Chronicity: acute Acute cor pulmonale presence: without acute cor pulmonale Qualified Code(s): I26.99 - Other pulmonary embolism without acute cor pulmonale (2) Acalculous cholecystitis SNOMED Code(s): 38300833 ICD Code: K81.9 - CHOLECYSTITIS, UNSPECIFIED Status: Suspected Current Visit: Yes (3) Benign familial tremor SNOMED Code(s): 101265813 ICD Code: G25.0 - ESSENTIAL TREMOR Status: Chronic Current Visit: No (4) CAD (coronary artery disease) SNOMED Code(s): 00904295 ICD Code: I25.10 - ATHSCL HEART DISEASE OF [place] CORONARY ARTERY W/O ANG PCT RS Status: Chronic Priority: Medium Current Visit: No Qualifiers: [place] vs. transplanted heart: [place] heart Associated angina: without angina (5) Congestive heart failure SNOMED Code(s): 60891603 ICD Code: I50.9 - HEART FAILURE, UNSPECIFIED Status: Chronic Current Visit: No Qualifiers: Heart failure type: systolic Heart failure chronicity: chronic Qualified Code(s): I50.22 - Chronic systolic (congestive) heart failure (6) DM type 2 (diabetes mellitus, type 2) SNOMED Code(s): 87092759 ICD Code: E11.9 - TYPE 2 DIABETES MELLITUS WITHOUT COMPLICATIONS Status: Chronic Priority: Medium Current Visit: No Qualifiers: Diabetes mellitus complication status: with other specified complication Qualified Code(s): E11.69 - Type 2 diabetes mellitus with other specified complication (7) Dyslipidemia SNOMED Code(s): 753549063 ICD Code: E78.5 - HYPERLIPIDEMIA, UNSPECIFIED Status: Chronic Priority: Low Current Visit: No (8) HTN (hypertension), benign SNOMED Code(s): 56787120 ICD Code: I10 - ESSENTIAL (PRIMARY) HYPERTENSION Status: Chronic Priority: Low Current Visit: No (9) WILMA (obstructive sleep apnea) SNOMED Code(s): 66103778 ICD Code: G47.33 - OBSTRUCTIVE SLEEP APNEA (ADULT) (PEDIATRIC) Status: Chronic Priority: Medium Current Visit: No Problem Details: noncompliant with cpap (10) Obesity SNOMED Code(s): 992712770, 567717319 ICD Code: E66.9 - OBESITY, UNSPECIFIED Status: Chronic Priority: Low Current Visit: No Qualifiers: Obesity type: due to excess calories Problem List Initiated/Reviewed/Updated: Yes Orders Last 24hrs: Active Orders 24 hr Category Date Time Status Admission Status [Patient Status] [ADT] Stat ADT 12/29/20 22:11 Active Accu Check [Blood Glucose Check, Bedside] [RC] TIDAC Care 12/30/20 07:30 Active Ambulate [RC] ASDIRECTED Care 12/29/20 23:31 Active Antiembolic Devices [RC] PER UNIT ROUTINE Care 12/29/20 23:32 Active Notify Provider Consults [RC] ASDIRECTED Care 12/29/20 22:15 Active Oxygen Therapy [RC] PRN Care 12/29/20 23:31 Active RT Aerosol Therapy [RC] ASDIRECTED Care 12/29/20 23:33 Active Telemetry Monitoring [Cardiac Monitoring] [RC] Q8H Care 12/29/20 22:44 Active VTE/DVT Education [RC] PER UNIT ROUTINE Care 12/29/20 23:31 Active Vital Signs [RC] Q4H Care 12/29/20 23:31 Active Consult to Physician [CONS] Stat Cons 12/29/20 22:14 Active Heart Healthy Diet [DIET] Diet 12/29/20 Dinner Active CULTURE BLOOD [BC] Stat Lab 12/29/20 19:40 Received CULTURE BLOOD [BC] Stat Lab 12/29/20 19:50 Results aPTT [PTT,PARTIAL THROMBOPLSTIN TIME] [COAG] Q6H Lab 12/30/20 08:00 Ordered aPTT [PTT,PARTIAL THROMBOPLSTIN TIME] [COAG] Q6H Lab 12/30/20 14:00 Ordered Acetaminophen [TylenoL] Med 12/29/20 23:39 Active 650 mg PO Q4H PRN Albuterol/Ipratropium [DuoNeb 3.0-0.5 MG/3 ML] Med 12/29/20 23:31 Active 3 ml NEB Q4HRRT PRN Dextrose 50% in Water Med 12/30/20 03:16 Active 50 ml IVPUSH ASDIRECTED PRN Glucagon,Human Recombinant [GlucaGen] Med 12/30/20 03:16 Active 1 mg IM ASDIRECTED PRN Heparin Sodium/0.45% NaCl [Heparin 25,000 Units in 1/2 Med 12/29/20 19:00 Active NS 500 ML] 500 ml IV TITRATE Insulin Aspart [NovoLOG] Med 12/30/20 07:30 Active See Protocol SUBCUT TIDAC Lactated Ringers [Ringers, Lactated] 1,000 ml Med 12/29/20 23:45 Active IV ASDIRECTED Morphine Med 12/29/20 23:38 Active 2 mg IVPUSH Q4H PRN Ondansetron [Zofran] Med 12/29/20 23:31 Active 4 mg IVPUSH Q4H PRN Pantoprazole [ProTONIX IV] Med 12/30/20 09:00 Active 40 mg IV DAILY Piperacillin/Tazobactam [Piperacil-Tazobact] 3.375 gm Med 12/30/20 03:00 Ac tive Sodium Chloride 0.9% [Normal Saline] 50 ml IV Q8H Sodium Chloride 0.9% [Saline Flush] Med 12/29/20 12:24 Active 10 ml FLUSH ASDIRECTED PRN Sodium Chloride 0.9% [Saline Flush] Med 12/29/20 12:24 Active 2.5 ml FLUSH ASDIRECTED PRN Blood Culture x2 Reflex Set [OM.PC] Stat Ot 12/29/20 19:17 Ordered Saline Lock Insert [OM.PC] Stat Ot 12/29/20 12:24 Ordered Sequential Compression Device [OM.PC] Per Unit Routine Ot 12/29/20 23:31 Ordered Medication Orders Acetaminophen (Acetaminophen 325 Mg Tab) 650 mg PO Q4H PRN PRN Reason: Pain (mild 1-3) Albuterol/Ipratropium (Albuterol/Ipratropium 3.0-0.5 Mg/3 Ml Neb Soln) 3 ml NEB Q4HRRT PRN PRN Reason: Shortness Of Breath/wheezing Dextrose/Water (50% Dextrose In Water 50 Ml Syringe) 50 ml IVPUSH ASDIRECTED PRN PRN Reason: Hypoglycemia Glucagon (Glucagon,Human Recombinant 1 Mg Vial) 1 mg IM ASDIRECTED PRN PRN Reason: Hypoglycemia Heparin Sodium/Sodium Chloride (Heparin 25,000 Units In 1/2 Ns 500 Ml) 500 mls @ 25.891 mls/hr IV TITRATE FOR[facility]; Protocol Last Titration: 12/30/20 02:57 Dose: 10.7 units/kg/hr, 31.843 mls/hr Documented by: EVERETT Cosigned by: [email or web address] Admin: 12/29/20 19:40 Dose: 8.7 units/kg/hr, 25.891 mls/hr Documented by: MANDO Cosigned by: MARCELA Lactated Ringer's (Ringers, Lactated) 1,000 mls @ 125 mls/hr IV ASDIRECTED EDI Last Admin: 12/30/20 01:01 Dose: 125 mls/hr Documented by: EVERETT Piperacillin Sod/Tazobactam (Sod 3.375 gm/ Sodium Chloride) 50 mls @ 100 mls/hr IV Q8H EDI Last Admin: 12/30/20 02:58 Dose: 100 mls/hr Documented by: EVERETT Insulin Aspart (Insulin Aspart 100 Units/Ml 3 Ml Pen) 0 unit SUBCUT TIDAC EDI; Protocol Last Admin: 12/30/20 07:30 Dose: Not Given Documented by: JANKI Morphine Sulfate (Morphine 2 Mg/Ml Syringe) 2 mg IVPUSH Q4H PRN PRN Reason: Pain (severe 7-10) Last Admin: 12/30/20 00:56 Dose: 2 mg Documented by: EVERETT Ondansetron HCl (Ondansetron 4 Mg/2 Ml Sdv) 4 mg IVPUSH Q4H PRN PRN Reason: Nausea/Vomiting Pantoprazole Sodium (Pantoprazole 40 Mg Vial) 40 mg IV DAILY EDI Sodium Chloride (Sodium Chloride 0.9% 10 Ml Syringe) 10 ml FLUSH ASDIRECTED PRN PRN Reason: Keep Vein Open Last Admin: 12/29/20 12:25 Dose: 10 ml Documented by: SHMUEL Sodium Chloride (Sodium Chloride 0.9% 2.5 Ml Syringe) 2.5 ml FLUSH ASDIRECTED PRN PRN Reason: Keep Vein Open Last Admin: 12/29/20 12:43 Dose: 2.5 ml Documented by: SHMUEL Assessment/Plan Comment:: This 75-year-old male admitted with acute pulmonary emboli and possible acalculous cholecystitis 1. Acute pulmonary emboli -Could be related to most recent COVID-19 infection patient was fully vaccinated at the time of infection -Started on heparin drip due to possibility of needing quick reversal for possible surgical intervention no surgical intervention at this time for acute cholecystitis -Switch to Lovenox 150 mg twice daily subcutaneously -Due to weight will start Coumadin dosing to help bridge -Monitor INRs daily -Patient remains on 2 L nasal cannula with mild shortness of breath otherwise patient hemodynamically stable -Obtain echo 2. Acalculous cholecystitis -Subsequent imaging of abdominal ultrasound does not show any signs of cholecystitis or pericholecystic fluid -Continue Zosyn today can consider discontinuing tomorrow -Monitor LFTs in a.m. -Appreciate Dr. Dorado's consult no surgical need at this time. 3. DM type II -We will decrease Lantus to 24 units tonight as patient has been taking 42 at home and this morning blood glucose was 78. -NovoLog 7 scale with meals -Hold home oral diabetic medications -Blood sugar checks 3 times daily -ADA diet 4. COPD -Continue oxygen at this time has been on this since code diagnosis 1 month ago -Continue home inhalers including Advair 5. History CAD, CHF, HTN, HLD -Continue Lasix, lisinopril, ASA and statin -Monitor daily weights, strict I's and O's -Echo from 2015 revealed severely decreased EF and left ventricular hypokinesis pending repeat today 6. Familial tremor -Continue Topamax and primidone GI prophylaxis: Omeprazole CODE STATUS: Full code patient is discussing with sons and will further clarify if this will change. Dispo: 2 to 3 days pending improvement and bridging with Coumadin/Lovenox
[2020-12-30] MEDS: Pantoprazole 40 MG Vial IV SCH (08:45)
--- NOTE | 2020-12-30 10:22 | PCM.CONS ---
H&P History of Present Illness - General Date of Service: 12/30/20 Admit Problem/Dx: Admission Diagnosis/Problem Admission Diagnosis/Problem Pulmonary embolism Source of Information: Patient History Limitations: Reports: No Limitations - History of Present Illness Initial Comments - Free Text/Narative: Patient is a 75-year-old gentleman who was admitted to the hospital last night. For the last week. He has been experiencing right upper quadrant abdominal pain with nausea and vomiting. No significant fever or chills. No change in bowel habits. Of significance is the fact that he, although he has been vaccinated, did develop COVID about a month ago requiring a 5 day hospital stay. His hospital stay was more likely related to his underlying chronic obstructive pul monary disease. When he presented to the emergency room yesterday, CT scan of the abdomen was done which did suggest cholecystitis. He was also found to have a right middle lobe pulmonary embolus. A subsequent ultrasound did not show any evidence of cholelithiasis, cholecystitis or pericholecystic fluid. Duration of Symptoms: Reports: Day(s): Location: Reports: Chest, Abdomen Quality: Reports: Pressure Improves with: Reports: None Worsens with: Reports: Eating, Movement Associated Symptoms: Reports: Nausea/Vomiting Right Lower Abdominal Pain Score (Numeric/FACES): 2 - Related Data Allergies/Adverse Reactions: Allergies Allergy/AdvReac Type Severity Reaction Status Date / Time No Known Allergies Allergy Verified 12/30/20 01:38 Home Medications: Home Meds Fluticasone/Salmeterol [Advair Diskus 100-50] 1 puff INH BID 08/06/15 [History] Gabapentin [Neurontin] 600 mg PO TID 08/06/15 [History] Insulin Glarg,Human.Rec.Analog [Lantus] 42 unit SUBCUT QPM 08/06/15 [History] Lisinopril 5 mg PO DAILY 08/06/15 [History] Omeprazole 20 mg PO DAILY 08/06/15 [History] Primidone 500 mg PO BID 08/06/15 [History] Simvastatin 40 mg PO BEDTIME 08/06/15 [History] Tamsulosin [Flomax] 0.4 mg PO DAILY 08/06/15 [History] Furosemide [Lasix] 40 mg PO DAILY #0 08/07/15 [Rx] ALPRAZolam [Alprazolam] 1 mg PO BID PRN 11/25/20 [History] Cyanocobalamin (Vitamin B-12) [Vitamin B-12] 100 mcg PO DAILY 11/25/20 [History] Fluticasone Propionate [Flonase] 2 sprays NASBOTH BEDTIME 11/25/20 [History] Pioglitazone HCl/Metformin HCl [Actoplus Met 15 MG-850 MG] 1 each PO DAILY 11/25/20 [History] Potassium Chloride 10 meq PO DAILY 11/25/20 [History] Topiramate 100 mg PO BID 11/25/20 [History] Albuterol/Ipratropium [Combivent Respimat] 1 puff INH Q4HRRT PRN 12/30/20 [History] Aspirin 325 mg PO DAILY 12/30/20 [History] Past Medical History HEENT History: Reports: Cataract, Sinusitis, Other (See Below) Cardiovascular History: Reports: CAD, High Cholesterol, Hypertension, NC, SOB on Exertion, Stents Respiratory History: Reports: Asthma, COPD, SOB Gastrointestinal History: Reports: GERD Other Gastrointestinal History: Here for lower abdominal pain Genitourinary History: Reports: BPH Musculoskeletal History: Reports: Amputation, Other (See Below) Other Musculoskeletal History: right index finger amputation, essential tremor (Parkinsons ruled out) Neurological History: Reports: Neuropathy, Diabetic, Other (See Below) Other Neuro History: tremors Psychiatric History: Reports: Anxiety Endocrine/Metabolic History: Reports: Diabetes, Type II, Hypomagnesemia, Obesity/BMI 30+ Insulin Pump Management Assessment Comments: Takes Lantus 42 units Hematologic History: Reports: Anticoagulation Therapy Oncologic (Cancer) History: Reports: Other (See Below) - Infectious Disease History Infectious Disease History: Reports: Chicken Pox, Influenza, Measles - Past Surgical History Head Surgeries/Procedures: Reports: None HEENT Surgical History: Reports: Cataract Surgery Other HEENT Surgeries/Procedures: bilateral eye surgery Cardiovascular Surgical History: Reports: Coronary Artery Stent Male Surgical History: Reports: Vasectomy Musculoskeletal Surgical History: Reports: Amputation Dermatological Surgical History: Reports: None Social & Family History - Family History Family Medical History: No Pertinent Family History - Tobacco Use Tobacco Use Status *Q: Former Tobacco User Used Tobacco, but Quit: Yes Month/Year Tobacco Last Used: 40 Second Hand Smoke Exposure: No - Caffeine Use Caffeine Use: Reports: None - Recreational Drug Use Recreational Drug Use: No - Living Situation & Occupation Occupation: Retired H&P Review of Systems - Review of Systems: Review Of Systems: See Below General: Reports: Fever, Decreased Appetite. Denies: Chills, Malaise, Weakness, Weight Loss HEENT: Reports: No Symptoms Pulmonary: Reports: Shortness of Breath. Denies: Wheezing, Pleuritic Chest Pain, Cough, Sputum, Hemoptysis Cardiovascular: Reports: Dyspnea on Exertion. Denies: Chest Pain, Palpitations, Orthopnea, PND Gastrointestinal: Reports: Abdominal Pain, Anorexia, Nausea, Vomiting. Denies: Diarrhea Genitourinary: Denies: Dysuria, Frequency, Burning, Pain, Urgency Musculoskeletal: Denies: Neck Pain, Shoulder Pain, Back Pain Skin: Denies: Cyanosis, Jaundice, Mottled, Pallor, Diaphoresis Psychiatric: Denies: Confusion, Depression, Anxiety Neurological: Reports: No Symptoms Hematologic/Lymphatic: Reports: No Symptoms Exam - Exam Exam: See Below - Vital Signs Vital Signs: Last Vital Signs Temp 97.9 F 12/30/20 07:15 Pulse 96 12/30/20 07:15 Resp 20 12/30/20 07:15 BP 124/64 12/30/20 07:15 Pulse Ox 96 12/30/20 07:15 Weight: 331 lb 8 oz - Exam Quality Assessment: Supplemental Oxygen. No: Central Line/PICC General: Alert, Oriented, Cooperative, Mild Distress HEENT: Conjunctiva Clear, Nares Patent, Pupils Equal, Pupils Reactive. No: S cleral Icterus Neck: Supple, Trachea Midline Lungs: Clear to Auscultation. No: Crackles, Rales, Rhonchi, Rub, Wheezing Cardiovascular: Regular Rate, Regular Rhythm, Normal S1, Normal S2. No: Tachycardia, Systolic Murmur, Diastolic Murmur GI/Abdominal Exam: Normal Bowel Sounds, Soft, No Distention, Tender (mildly tender in the right upper quadrant.). No: Guarding, Rigid, Rebound (Male) Exam: No Hernia Rectal (Males) Exam: Deferred Back Exam: Normal Inspection Extremities: Normal Inspection, Normal Range of Motion, Non-Tender Peripheral Pulses: 4+: Posterior Tibial (L), Posterior Tibial (R), Dorsalis Pedis (L), Dorsalis Pedis (R) Skin: Warm, Dry, Intact - Patient Data Lab Results Last 24 hrs: Laboratory Results - last 24 hr 12/29/20 12/29/20 12/29/20 Range/Units 12:18 12:18 12:18 WBC 11.44 H (4.0-11.0) K/uL RBC 3.92 L (4.50-5.90) M/uL Hgb 13.1 (13.0-17.0) g/dL Hct 39.1 (38.0-50.0) % MCV 99.7 H (80.0-98.0) fL MCH 33.4 H (27.0-32.0) pg MCHC 33.5 (31.0-37.0) g/dL RDW Std Deviation 52.5 (28.0-62.0) fl RDW Coeff of Romina 14 (11.0-15.0) % Plt Count 181 (150-400) K/uL MPV 11.90 (7.40-12.00) fL Neut % (Auto) 84.4 H (48.0-80.0) % Lymph % (Auto) 8.7 L (16.0-40.0) % [place] % (Auto) 6.3 (0.0-15.0) % Eos % (Auto) 0.3 (0.0-7.0) % Baso % (Auto) 0.3 (0.0-1.5) % Neut # (Auto) 9.7 H (1.4-5.7) K/uL Lymph # (Auto) 1.0 (0.6-2.4) K/uL [place] # (Auto) 0.7 (0.0-0.8) K/uL Eos # (Auto) 0.0 (0.0-0.7) K/uL Baso # (Auto) 0.0 (0.0-0.1) K/uL Nucleated RBC % 0.0 /100WBC Nucleated RBCs # 0 K/uL APTT (18.6-31.3) SEC Sodium 135 L (136-148) mmol/L Potassium 4.1 (3.5-5.1) mmol/L Chloride 100 (98-107) mmol/L Carbon Dioxide 23.5 (21.0-32.0) mmol/L BUN 19 H (7.0-18.0) mg/dL Creatinine 1.0 (0.8-1.3) mg/dL Est Cr Clr Drug Dosing 64.81 mL/min Estimated GFR (MDRD) > 60.0 ml/min Glucose 158 H (74-106) mg/dL POC Glucose (70-99) mg/dL Lactic Acid (0.4-2.0) mmol/L Calcium 9.4 (8.5-10.1) mg/dL Phosphorus (2.6-4.7) mg/dL Magnesium (1.8-2.4) mg/dL Total Bilirubin 0.5 (0.2-1.0) mg/dL AST 23 (15-37) IU/L ALT 23 (14-63) IU/L Alkaline Phosphatase 63 (46-116) U/L Troponin I (0.000-0.056) ng/mL B-Natriuretic Peptide 144 H (<100) PG/ML Total Protein 7.4 (6.4-8.2) g/dL Albumin 2.6 L (3.4-5.0) g/dL Globulin 4.8 H (2.6-4.0) g/dL Albumin/Globulin Ratio 0.5 L (0.9-1.6) Lipase 35 L (73-393) U/L Urine Color Urine Appearance Urine pH (5.0-8.0) Ur Specific Roberts (1.001-1.035) Urine Protein (NEGATIVE) mg/dL Urine Glucose (UA) (NEGATIVE) mg/dL Urine Ketones (NEGATIVE) mg/dL Urine Occult Blood (NEGATIVE) Urine Nitrite (NEGATIVE) Urine Bilirubin (NEGATIVE) Urine Urobilinogen (<2.0) EU/dL Ur Leukocyte Esterase (NEGATIVE) Urine RBC (0-2/HPF) Urine WBC (0-5/HPF) Ur Epithelial Cells (NONE-FEW) Urine Bacteria (NEGATIVE) Urine Mucus (NONE-MOD) 12/29/20 12/29/20 12/29/20 Range/Units 12:18 14:30 17:13 WBC (4.0-11.0) K/uL RBC (4.50-5.90) M/uL Hgb (13.0-17.0) g/dL Hct (38.0-50.0) % MCV (80.0-98.0) fL MCH (27.0-32.0) pg MCHC (31.0-37.0) g/dL RDW Std Deviation (28.0-62.0) fl RDW Coeff of Romina (11.0-15.0) % Plt Count (150-400) K/uL MPV (7.40-12.00) fL Neut % (Auto) (48.0-80.0) % Lymph % (Auto) (16.0-40.0) % [place] % (Auto) (0.0-15.0) % Eos % (Auto) (0.0-7.0) % Baso % (Auto) (0.0-1.5) % Neut # (Auto) (1.4-5.7) K/uL Lymph # (Auto) (0.6-2.4) K/uL [place] # (Auto) (0.0-0.8) K/uL Eos # (Auto) (0.0-0.7) K/uL Baso # (Auto) (0.0-0.1) K/uL Nucleated RBC % /100WBC Nucleated RBCs # K/uL APTT (18.6-31.3) SEC Sodium (136-148) mmol/L Potassium (3.5-5.1) mmol/L Chloride (98-107) mmol/L Carbon Dioxide (21.0-32.0) mmol/L BUN (7.0-18.0) mg/dL Creatinine (0.8-1.3) mg/dL Est Cr Clr Drug Dosing mL/min Estimated GFR (MDRD) ml/min Glucose (74-106) mg/dL POC Glucose (70-99) mg/dL Lactic Acid (0.4-2.0) mmol/L Calcium (8.5-10.1) mg/dL Phosphorus (2.6-4.7) mg/dL Magnesium (1.8-2.4) mg/dL Total Bilirubin (0.2-1.0) mg/dL AST (15-37) IU/L ALT (14-63) IU/L Alkaline Phosphatase (46-116) U/L Troponin I 0.293 H* 0.220 H* (0.000-0.056) ng/mL B-Natriuretic Peptide (<100) PG/ML Total Protein (6.4-8.2) g/dL Albumin (3.4-5.0) g/dL Globulin (2.6-4.0) g/dL Albumin/Globulin Ratio (0.9-1.6) Lipase (73-393) U/L Urine Color DARK YELLOW Urine Appearance CLEAR Urine pH 5.5 (5.0-8.0) Ur Specific Roberts 1.025 (1.001-1.035) Urine Protein 30 H (NEGATIVE) mg/dL Urine Glucose (UA) NEGATIVE (NEGATIVE) mg/dL Urine Ketones 15 H (NEGATIVE) mg/dL Urine Occult Blood NEGATIVE (NEGATIVE) Urine Nitrite NEGATIVE (NEGATIVE) Urine Bilirubin SMALL H (NEGATIVE) Urine Urobilinogen 1.0 (<2.0) EU/dL Ur Leukocyte Esterase NEGATIVE (NEGATIVE) Urine RBC 1-3 (0-2/HPF) Urine WBC 1-3 (0-5/HPF) Ur Epithelial Cells FEW (NONE-FEW) Urine Bacteria 1+ H (NEGATIVE) Urine Mucus HEAVY (NONE-MOD) 12/29/20 12/29/20 12/29/20 Range/Units 18:51 19:29 19:29 WBC (4.0-11.0) K/uL RBC (4.50-5.90) M/uL Hgb (13.0-17.0) g/dL Hct (38.0-50.0) % MCV (80.0-98.0) fL MCH (27.0-32.0) pg MCHC (31.0-37.0) g/dL RDW Std Deviation (28.0-62.0) fl RDW Coeff of Romina (11.0-15.0) % Plt Count (150-400) K/uL MPV (7.40-12.00) fL Neut % (Auto) (48.0-80.0) % Lymph % (Auto) (16.0-40.0) % [place] % (Auto) (0.0-15.0) % Eos % (Auto) (0.0-7.0) % Baso % (Auto) (0.0-1.5) % Neut # (Auto) (1.4-5.7) K/uL Lymph # (Auto) (0.6-2.4) K/uL [place] # (Auto) (0.0-0.8) K/uL Eos # (Auto) (0.0-0.7) K/uL Baso # (Auto) (0.0-0.1) K/uL Nucleated RBC % /100WBC Nucleated RBCs # K/uL APTT 23.9 (18.6-31.3) SEC Sodium (136-148) mmol/L Potassium (3.5-5.1) mmol/L Chloride (98-107) mmol/L Carbon Dioxide (21.0-32.0) mmol/L BUN (7.0-18.0) mg/dL Creatinine (0.8-1.3) mg/dL Est Cr Clr Drug Dosing mL/min Estimated GFR (MDRD) ml/min Glucose (74-106) mg/dL POC Glucose (70-99) mg/dL Lactic Acid 0.8 (0.4-2.0) mmol/L Calcium (8.5-10.1) mg/dL Phosphorus (2.6-4.7) mg/dL Magnesium (1.8-2.4) mg/dL Total Bilirubin (0.2-1.0) mg/dL AST (15-37) IU/L ALT (14-63) IU/L Alkaline Phosphatase (46-116) U/L Troponin I 0.134 H* (0.000-0.056) ng/mL B-Natriuretic Peptide (<100) PG/ML Total Protein (6.4-8.2) g/dL Albumin (3.4-5.0) g/dL Globulin (2.6-4.0) g/dL Albumin/Globulin Ratio (0.9-1.6) Lipase (73-393) U/L Urine Color Urine Appearance Urine pH (5.0-8.0) Ur Specific Roberts (1.001-1.035) Urine Protein (NEGATIVE) mg/dL Urine Glucose (UA) (NEGATIVE) mg/dL Urine Ketones (NEGATIVE) mg/dL Urine Occult Blood (NEGATIVE) Urine Nitrite (NEGATIVE) Urine Bilirubin (NEGATIVE) Urine Urobilinogen (<2.0) EU/dL Ur Leukocyte Esterase (NEGATIVE) Urine RBC (0-2/HPF) Urine WBC (0-5/HPF) Ur Epithelial Cells (NONE-FEW) Urine Bacteria (NEGATIVE) Urine Mucus (NONE-MOD) 12/29/20 12/30/20 12/30/20 Range/Units 19:29 01:40 05:20 WBC (4.0-11.0) K/uL RBC (4.50-5.90) M/uL Hgb (13.0-17.0) g/dL Hct (38.0-50.0) % MCV (80.0-98.0) fL MCH (27.0-32.0) pg MCHC (31.0-37.0) g/dL RDW Std Deviation (28.0-62.0) fl RDW Coeff of Romina (11.0-15.0) % Plt Count (150-400) K/uL MPV (7.40-12.00) fL Neut % (Auto) (48.0-80.0) % Lymph % (Auto) (16.0-40.0) % [place] % (Auto) (0.0-15.0) % Eos % (Auto) (0.0-7.0) % Baso % (Auto) (0.0-1.5) % Neut # (Auto) (1.4-5.7) K/uL Lymph # (Auto) (0.6-2.4) K/uL [place] # (Auto) (0.0-0.8) K/uL Eos # (Auto) (0.0-0.7) K/uL Baso # (Auto) (0.0-0.1) K/uL Nucleated RBC % /100WBC Nucleated RBCs # K/uL APTT 42.2 H (18.6-31.3) SEC Sodium 135 L (136-148) mmol/L Potassium 4.0 (3.5-5.1) mmol/L Chloride 103 (98-107) mmol/L Carbon Dioxide 25.2 (21.0-32.0) mmol/L BUN 19 H (7.0-18.0) mg/dL Creatinine 0.9 (0.8-1.3) mg/dL Est Cr Clr Drug Dosing 72.01 mL/min Estimated GFR (MDRD) > 60.0 ml/min Glucose 96 (74-106) mg/dL POC Glucose (70-99) mg/dL Lactic Acid (0.4-2.0) mmol/L Calcium 8.5 (8.5-10.1) mg/dL Phosphorus 3.1 (2.6-4.7) mg/dL Magnesium 2.0 2.0 (1.8-2.4) mg/dL Total Bilirubin (0.2-1.0) mg/dL AST (15-37) IU/L ALT (14-63) IU/L Alkaline Phosphatase (46-116) U/L Troponin I 0.121 H* (0.000-0.056) ng/mL B-Natriuretic Peptide (<100) PG/ML Total Protein (6.4-8.2) g/dL Albumin (3.4-5.0) g/dL Globulin (2.6-4.0) g/dL Albumin/Globulin Ratio (0.9-1.6) Lipase (73-393) U/L Urine Color Urine Appearance Urine pH (5.0-8.0) Ur Specific Roberts (1.001-1.035) Urine Protein (NEGATIVE) mg/dL Urine Glucose (UA) (NEGATIVE) mg/dL Urine Ketones (NEGATIVE) mg/dL Urine Occult Blood (NEGATIVE) Urine Nitrite (NEGATIVE) Urine Bilirubin (NEGATIVE) Urine Urobilinogen (<2.0) EU/dL Ur Leukocyte Esterase (NEGATIVE) Urine RBC (0-2/HPF) Urine WBC (0-5/HPF) Ur Epithelial Cells (NONE-FEW) Urine Bacteria (NEGATIVE) Urine Mucus (NONE-MOD) 12/30/20 12/30/20 12/30/20 Range/Units 05:20 06:50 07:47 WBC 8.49 (4.0-11.0) K/uL RBC 3.41 L (4.50-5.90) M/uL Hgb 11.4 L (13.0-17.0) g/dL Hct 34.4 L (38.0-50.0) % MCV 100.9 H (80.0-98.0) fL MCH 33.4 H (27.0-32.0) pg MCHC 33.1 (31.0-37.0) g/dL RDW Std Deviation 53.9 (28.0-62.0) fl RDW Coeff of Romina 15 (11.0-15.0) % Plt Count 182 (150-400) K/uL MPV 12.50 H (7.40-12.00) fL Neut % (Auto) 78.1 (48.0-80.0) % Lymph % (Auto) 13.1 L (16.0-40.0) % [place] % (Auto) 7.7 (0.0-15.0) % Eos % (Auto) 0.9 (0.0-7.0) % Baso % (Auto) 0.2 (0.0-1.5) % Neut # (Auto) 6.6 H (1.4-5.7) K/uL Lymph # (Auto) 1.1 (0.6-2.4) K/uL [place] # (Auto) 0.7 (0.0-0.8) K/uL Eos # (Auto) 0.1 (0.0-0.7) K/uL Baso # (Auto) 0.0 (0.0-0.1) K/uL Nucleated RBC % 0.0 /100WBC Nucleated RBCs # 0 K/uL APTT (18.6-31.3) SEC Sodium (136-148) mmol/L Potassium (3.5-5.1) mmol/L Chloride (98-107) mmol/L Carbon Dioxide (21.0-32.0) mmol/L BUN (7.0-18.0) mg/dL Creatinine (0.8-1.3) mg/dL Est Cr Clr Drug Dosing mL/min Estimated GFR (MDRD) ml/min Glucose (74-106) mg/dL POC Glucose 78 106 H (70-99) mg/dL Lactic Acid (0.4-2.0) mmol/L Calcium (8.5-10.1) mg/dL Phosphorus (2.6-4.7) mg/dL Magnesium (1.8-2.4) mg/dL Total Bilirubin (0.2-1.0) mg/dL AST (15-37) IU/L ALT (14-63) IU/L Alkaline Phosphatase (46-116) U/L Troponin I (0.000-0.056) ng/mL B-Natriuretic Peptide (<100) PG/ML Total Protein (6.4-8.2) g/dL Albumin (3.4-5.0) g/dL Globulin (2.6-4.0) g/dL Albumin/Globulin Ratio (0.9-1.6) Lipase (73-393) U/L Urine Color Urine Appearance Urine pH (5.0-8.0) Ur Specific Roberts (1.001-1.035) Urine Protein (NEGATIVE) mg/dL Urine Glucose (UA) (NEGATIVE) mg/dL Urine Ketones (NEGATIVE) mg/dL Urine Occult Blood (NEGATIVE) Urine Nitrite (NEGATIVE) Urine Bilirubin (NEGATIVE) Urine Urobilinogen (<2.0) EU/dL Ur Leukocyte Esterase (NEGATIVE) Urine RBC (0-2/HPF) Urine WBC (0-5/HPF) Ur Epithelial Cells (NONE-FEW) Urine Bacteria (NEGATIVE) Urine Mucus (NONE-MOD) 12/30/20 Range/Units 08:15 WBC (4.0-11.0) K/uL RBC (4.50-5.90) M/uL Hgb (13.0-17.0) g/dL Hct (38.0-50.0) % MCV (80.0-98.0) fL MCH (27.0-32.0) pg MCHC (31.0-37.0) g/dL RDW Std Deviation (28.0-62.0) fl RDW Coeff of Romina (11.0-15.0) % Plt Count (150-400) K/uL MPV (7.40-12.00) fL Neut % (Auto) (48.0-80.0) % Lymph % (Auto) (16.0-40.0) % [place] % (Auto) (0.0-15.0) % Eos % (Auto) (0.0-7.0) % Baso % (Auto) (0.0-1.5) % Neut # (Auto) (1.4-5.7) K/uL Lymph # (Auto) (0.6-2.4) K/uL [place] # (Auto) (0.0-0.8) K/uL Eos # (Auto) (0.0-0.7) K/uL Baso # (Auto) (0.0-0.1) K/uL Nucleated RBC % /100WBC Nucleated RBCs # K/uL APTT 53.5 H (18.6-31.3) SEC Sodium (136-148) mmol/L Potassium (3.5-5.1) mmol/L Chloride (98-107) mmol/L Carbon Dioxide (21.0-32.0) mmol/L BUN (7.0-18.0) mg/dL Creatinine (0.8-1.3) mg/dL Est Cr Clr Drug Dosing mL/min Estimated GFR (MDRD) ml/min Glucose (74-106) mg/dL POC Glucose (70-99) mg/dL Lactic Acid (0.4-2.0) mmol/L Calcium (8.5-10.1) mg/dL Phosphorus (2.6-4.7) mg/dL Magnesium (1.8-2.4) mg/dL Total Bilirubin (0.2-1.0) mg/dL AST (15-37) IU/L ALT (14-63) IU/L Alkaline Phosphatase (46-116) U/L Troponin I (0.000-0.056) ng/mL B-Natriuretic Peptide (<100) PG/ML Total Protein (6.4-8.2) g/dL Albumin (3.4-5.0) g/dL Globulin (2.6-4.0) g/dL Albumin/Globulin Ratio (0.9-1.6) Lipase (73-393) U/L Urine Color Urine Appearance Urine pH (5.0-8.0) Ur Specific Roberts (1.001-1.035) Urine Protein (NEGATIVE) mg/dL Urine Glucose (UA) (NEGATIVE) mg/dL Urine Ketones (NEGATIVE) mg/dL Urine Occult Blood (NEGATIVE) Urine Nitrite (NEGATIVE) Urine Bilirubin (NEGATIVE) Urine Urobilinogen (<2.0) EU/dL Ur Leukocyte Esterase (NEGATIVE) Urine RBC (0-2/HPF) Urine WBC (0-5/HPF) Ur Epithelial Cells (NONE-FEW) Urine Bacteria (NEGATIVE) Urine Mucus (NONE-MOD) Result Diagrams: 12/30/20 05:20 12/30/20 05:20 Jordan Results Last 24 hrs: Microbiology 12/29/20 19:50 Anaerobic Blood Culture - Final Blood - Venous - Lab Draw Imaging Impressions Last 24 hrs: CT and ultrasound reports and images have been personally reviewed. I do not see any evidence of cholelithiasis, acute or chronic cholecystitis or pericholecystic fluid. Sepsis Event Note - Evaluation Sepsis Screening Result: No Definite Risk - Focused Exam Vital Signs: Vital Signs Temp Pulse Resp BP BP Pulse Ox 12/30/20 07:15 97.9 F 96 20 124/64 96 12/30/20 03:10 98.1 F 90 18 131/80 96 12/29/20 23:48 97.8 F 86 19 108/57 L 98 12/29/20 23:00 89 18 117/74 98 Consult PN Assessment/Plan Procedures: Procedures AIRWAY INHALATION TREATMENT (11/25/20) ASSAY GLUCOSE BLOOD QUANT (11/25/20) ASSAY OF FOLIC ACID SERUM (08/06/15) ASSAY OF MAGNESIUM (11/25/20) ASSAY OF NATRIURETIC PEPTIDE (11/25/20) ASSAY OF TROPONIN QUANT (11/25/20) ASSAY THYROID STIM HORMONE (11/25/20) CHEST WALL MANIPULATION (11/25/20) CHEST WALL MANIPULATION (11/25/20) CHEST X-RAY 1 VIEW FRONTAL (08/06/15) COMPLETE CBC W/AUTO DIFF WBC (11/25/20) COMPREHEN METABOLIC PANEL (11/25/20) CT ANGIOGRAPHY CHEST (11/25/20) ELECTROCARDIOGRAM TRACING (11/25/20) EMERGENCY DEPT VISIT (11/25/20) FIBRIN DEGRADATION QUANT (11/25/20) GLUCOSE BLOOD TEST (08/06/15) GLYCOSYLATED HEMOGLOBIN TEST (08/06/15) INFLUENZA ASSAY W/OPTIC (11/25/20) LIPID PANEL (08/06/15) MEDICAL NUTRITION INDIV IN (08/06/15) METABOLIC PANEL TOTAL CA (08/06/15) OFFICE O/P EST MOD 30-39 MIN (09/09/15) OFFICE O/P NEW MOD 45-59 MIN (03/11/15) POLYSOM 6/> YRS 4/> LEYDA (11/27/15) POLYSOM 6/>YRS CPAP 4/> PARM (04/05/16) PROTHROMBIN TIME (08/06/15) ROUTINE VENIPUNCTURE (11/25/20) THER/PROPH/DIAG INJ IV PUSH (08/06/15) THER/PROPH/DIAG INJ SC/IM (08/06/15) THER/PROPH/DIAG IV INF ADDON (11/25/20) THER/PROPH/DIAG IV INF INIT (11/25/20) THROMBOPLASTIN TIME PARTIAL (08/06/15) TTE W/DOPPLER COMPLETE (08/06/15) TX/PRO/DX INJ NEW DRUG ADDON (11/25/20) TX/PRO/DX INJ SAME DRUG 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 Given his underlying asthma, COPD and newly diagnosed pulmonary embolism, he is not a candidate for surgical therapy here. At this time, I see no indication for surgery.
[2020-12-30] MEDS ORDERED: ALPRAZolam 0.5 MG Tab PO PRN (11:34)
[2020-12-30] MEDS: Fluticasone/Salmeterol 100-50 MCG Inhalation Powder 14/Diskus INH SCH ×2 (12:01→23:39)
[2020-12-30] MEDS: Enoxaparin 150 MG/1 ML Syringe SUBCUT SCH ×2 (12:01→23:38)
[2020-12-30] MEDS: Primidone 250 MG Tab PO SCH ×2 (12:23→23:39)
[2020-12-30] MEDS: Gabapentin 300 MG Cap PO SCH ×2 (13:22→23:41)
[2020-12-30] MEDS ORDERED: Furosemide 40 MG Tab PO ONE (15:00)
[2020-12-30] MEDS ORDERED: Warfarin 10 MG Tab PO SCH (15:00)
[2020-12-30] MEDS ORDERED: Warfarin Sliding Scale PO SCH (15:00)
[2020-12-30] MEDS ORDERED: Insulin Glargine,Human Rec. Analog 100 Units/ML 3 ML Pen SUBCUT SCH (18:00)
[2020-12-30] MEDS ORDERED: INSULIN GLARG HUMAN REC ANALOG 100 UNIT/ML SUBCUT SCH (18:00)
[2020-12-30] MEDS ORDERED: Simvastatin 40 MG Tab PO SCH (21:00)
[2020-12-30] MEDS: Topiramate 50 MG Tab PO SCH (23:40)
[2020-12-31] MEDS: Piperacillin/Tazobactam 3.375 GM in Sodium Chloride 0.9% 50 ML IV SCH (03:45)
[2020-12-31] MEDS: Fluticasone/Salmeterol 100-50 MCG Inhalation Powder 14/Diskus INH SCH (06:51)
[2020-12-31] MEDS: Gabapentin 300 MG Cap PO SCH (06:51)
[2020-12-31] MEDS: Insulin Aspart 100 Units/ML 3 ML Pen SUBCUT SCH ×2 (07:30→12:08)
[2020-12-31 08:03] VITALS: BP 175/70; PULSE 81
--- NOTE | 2020-12-31 08:07 | PCM.PN ---
- General Info Date of Service: 12/31/20 Admission Dx/Problem (Free Text): Admission Diagnosis/Problem Admission Diagnosis/Problem Pulmonary embolism - Patient Data Vitals - Most Recent: Last Vital Signs Temp 98.2 F 12/31/20 08:02 Pulse 81 12/31/20 08:02 Resp 20 12/31/20 08:02 BP 175/70 H 12/31/20 08:02 Pulse Ox 96 12/31/20 08:02 Weight - Most Recent: 150.23 kg I&O - Last 24 Hours: Intake & Output 12/30/20 12/31/20 12/31/20 22:59 06:59 14:59 Intake Total 550 Output Total 700 Balance -150 Lab Results Last 24 Hours: Laboratory Results - last 24 hr 12/30/20 12/30/20 12/30/20 Range/Units 08:15 08:15 11:21 INR 1.16 APTT 53.5 H (18.6-31.3) SEC POC Glucose 129 H (70-99) mg/dL 12/30/20 12/31/20 Range/Units 17:14 06:10 INR 1.37 APTT (18.6-31.3) SEC POC Glucose 114 H (70-99) mg/dL [place] Results Last 24 Hours: Microbiology 12/29/20 19:50 Aerobic Blood Culture - Preliminary Blood - Venous - Lab Draw NO GROWTH AFTER 1 DAY Anaerobic Blood Culture - Final 12/29/20 19:40 Aerobic Blood Culture - Preliminary Blood - Venous NO GROWTH AFTER 1 DAY Anaerobic Blood Culture - Preliminary NO GROWTH AFTER 1 DAY Med Orders - Current: Current Medications Acetaminophen (Acetaminophen 325 Mg Tab) 650 mg PO Q4H PRN PRN Reason: Pain (mild 1-3) Albuterol/Ipratropium (Albuterol/Ipratropium 3.0-0.5 Mg/3 Ml Neb Soln) 3 ml NEB Q4HRRT PRN PRN Reason: Shortness Of Breath/wheezing Alprazolam (Alprazolam 0.5 Mg Tab) 1 mg PO Q12H PRN PRN Reason: Anxiety Aspirin (Aspirin 81 Mg Tab.Ec) 81 mg PO DAILY EDI Dextrose/Water (50% Dextrose In Water 50 Ml Syringe) 50 ml IVPUSH ASDIRECTED PRN PRN Reason: Hypoglycemia Enoxaparin Sodium (Enoxaparin 150 Mg/1 Ml Syringe) 150 mg SUBCUT Q12H [facility] Last Admin: 12/30/20 23:38 Dose: 150 mg Documented by: Furosemide (Furosemide 40 Mg Tab) 40 mg PO DAILY [facility] Gabapentin (Gabapentin 300 Mg Cap) 600 mg PO TID [facility] Last Admin: 12/31/20 06:51 Dose: 600 mg Documented by: Glucagon (Glucagon,Human Recombinant 1 Mg Vial) 1 mg IM ASDIRECTED PRN PRN Reason: Hypoglycemia Piperacillin Sod/Tazobactam (Sod 3.375 gm/ Sodium Chloride) 50 mls @ 100 mls/hr IV Q8H [facility] Last Admin: 12/31/20 03:45 Dose: 100 mls/hr Documented by: Insulin Aspart (Insulin Aspart 100 Units/Ml 3 Ml Pen) 0 unit SUBCUT TIDAC [facility]; Protocol Last Admin: 12/30/20 18:18 Dose: Not Given Documented by: Insulin Glargine (Insulin Glargine,Human Rec. Analog 100 Units/Ml 3 Ml Pen) 24 units SUBCUT QPM [facility] Last Admin: 12/30/20 17:31 Dose: 24 units Documented by: Lisinopril (Lisinopril 5 Mg Tab) 5 mg PO DAILY [facility] Morphine Sulfate (Morphine 2 Mg/Ml Syringe) 2 mg IVPUSH Q4H PRN PRN Reason: Pain (severe 7-10) Last Admin: 12/30/20 00:56 Dose: 2 mg Documented by: Ondansetron HCl (Ondansetron 4 Mg/2 Ml Sdv) 4 mg IVPUSH Q4H PRN PRN Reason: Nausea/Vomiting Pantoprazole Sodium (Pantoprazole 40 Mg Vial) 40 mg IV DAILY [facility] Last Admin: 12/30/20 08:45 Dose: 40 mg Documented by: Primidone (Primidone 250 Mg Tab) 500 mg PO BID [facility] Last Admin: 12/30/20 23:39 Dose: 500 mg Documented by: Fluticasone/Salmeterol (Fluticasone/Salmeterol 100-50 Mcg Inhalation Powder 14/Diskus) 1 puff INH BIDRT [facility] Last Admin: 12/31/20 06:51 Dose: 1 puff Documented by: Simvastatin (Simvastatin 40 Mg Tab) 40 mg PO BEDTIME [facility] Last Admin: 12/30/20 23:40 Dose: 40 mg Documented by: Sodium Chloride (Sodium Chloride 0.9% 10 Ml Syringe) 10 ml FLUSH ASDIRECTED PRN PRN Reason: Keep Vein Open Last Admin: 12/29/20 12:25 Dose: 10 ml Documented by: Sodium Chloride (Sodium Chloride 0.9% 2.5 Ml Syringe) 2.5 ml FLUSH ASDIRECTED PRN PRN Reason: Keep Vein Open Last Admin: 12/29/20 12:43 Dose: 2.5 ml Documented by: Tamsulosin HCl (Tamsulosin 0.4 Mg Cap.Er) 0.4 mg PO DAILY [facility] Topiramate (Topiramate 50 Mg Tab) 50 mg PO BID [facility] Last Admin: 12/30/20 23:40 Dose: 50 mg Documented by: Warfarin Sodium (Warfarin Sliding Scale) 1 each PO DAILY@1400 [facility] Last Admin: 12/30/20 16:06 Dose: Not Given Documented by: Discontinued Medications Aspirin (Aspirin 81 Mg Tab.Chew) 243 mg PO ONETIME ONE Stop: 12/29/20 16:55 Last Admin: 12/29/20 18:37 Dose: 243 mg Documented by: Furosemide (Furosemide 40 Mg Tab) 40 mg PO ONETIME ONE Stop: 12/30/20 15:01 Last Admin: 12/30/20 15:11 Dose: 40 mg Documented by: Heparin Sodium (Porcine) (Heparin Sodium 5,000 Units/Ml Vial) 5,000 units IVPUSH ONETIME ONE; Protocol Stop: 12/29/20 18:49 Last Admin: 12/29/20 19:21 Dose: 5,000 units Documented by: Heparin Sodium (Porcine) (Heparin Sodium 5,000 Units/Ml Vial) Confirm Administered Dose 5,000 units .ROUTE .STK-MED ONE Stop: 12/29/20 19:15 Last Admin: 12/29/20 19:44 Dose: Not Given Documented by: Heparin Sodium (Porcine) (Heparin Sodium 5,000 Units/Ml Vial) 1,500 units IVPUSH .BOLUS ONE Stop: 12/30/20 02:38 Last Admin: 12/30/20 02:51 Dose: 1,500 units Documented by: Sodium Chloride (Normal Saline) 1,000 mls @ 999 mls/hr IV STAT ONE Stop: 12/29/20 19:50 Last Admin: 12/29/20 19:33 Dose: 999 mls/hr Documented by: Heparin Sodium/Sodium Chloride (Heparin 25,000 Units In 1/2 Ns 500 Ml) 500 mls @ 25.891 mls/hr IV TITRATE EDI; Protocol Last Titration: 12/30/20 09:47 Dose: 10.7 units/kg/hr, 31.843 mls/hr Documented by: Heparin Sodium/Sodium Chloride (Heparin 25,000 Units In 1/2 Ns 500 Ml) Confirm Administered Dose 500 mls @ as directed .ROUTE .STK-MED ONE Stop: 12/29/20 19:15 Last Admin: 12/29/20 19:45 Dose: Not Given Documented by: Piperacillin Sod/Tazobactam (Sod 4.5 gm/ Sodium Chloride) 100 mls @ 100 mls/hr IV ONETIME ONE Stop: 12/29/20 20:16 Last Admin: 12/29/20 19:45 Dose: 100 mls/hr Documented by: Lactated Ringer's (Ringers, Lactated) 1,000 mls @ 125 mls/hr IV ASDIRECTED [facility] Last Admin: 12/30/20 10:06 Dose: 125 mls/hr Documented by: Iopamidol (Iopamidol 755 Mg/Ml 500 Ml Multipack Bottle) 100 ml IVPUSH ONETIME STA Stop: 12/29/20 19:18 Last Admin: 12/29/20 19:18 Dose: 100 ml Documented by: Iopamidol (Iopamidol 755 Mg/Ml 500 Ml Multipack Bottle) 100 ml IVPUSH ONETIME ONE Stop: 12/29/20 20:50 Last Admin: 12/29/20 21:20 Dose: 100 ml Documented by: Ketorolac Tromethamine (Ketorolac 30 Mg/Ml Sdv) 30 mg IVPUSH ONETIME ONE Stop: 12/29/20 12:31 Last Admin: 12/29/20 12:42 Dose: 30 mg Documented by: Non-Formulary Medication (Insulin Glarg,Human.Rec.Analog) 42 unit SUBCUT QPM [facility] Ondansetron HCl (Ondansetron 4 Mg/2 Ml Sdv) 4 mg IVPUSH ONETIME ONE Stop: 12/29/20 12:31 Last Admin: 12/29/20 12:35 Dose: 4 mg Documented by: Ondansetron HCl (Ondansetron 4 Mg/2 Ml Sdv) Confirm Administered Dose 4 mg .ROUTE .STK-MED ONE Stop: 12/29/20 12:47 Last Admin: 12/29/20 13:30 Dose: Not Given Documented by: Warfarin Sodium (Warfarin 10 Mg Tab) 10 mg PO ONETIME EDI Last Admin: 12/30/20 15:55 Dose: 10 mg Documented by: - Patient Data Lab Results Last 24 hrs: Laboratory Results - last 24 hr 12/30/20 12/30/20 12/30/20 Range/Units 08:15 08:15 11:21 INR 1.16 APTT 53.5 H (18.6-31.3) SEC POC Glucose 129 H (70-99) mg/dL 12/30/20 12/31/20 Range/Units 17:14 06:10 INR 1.37 APTT (18.6-31.3) SEC POC Glucose 114 H (70-99) mg/dL Result Diagrams: 12/30/20 05:20 12/30/20 05:20 [place] Results Last 24 hrs: Microbiology 12/29/20 19:50 Aerobic Blood Culture - Preliminary Blood - Venous - Lab Draw NO GROWTH AFTER 1 DAY Anaerobic Blood Culture - Final 12/29/20 19:40 Aerobic Blood Culture - Preliminary Blood - Venous NO GROWTH AFTER 1 DAY Anaerobic Blood Culture - Preliminary NO GROWTH AFTER 1 DAY Sepsis Event Note - Evaluation Sepsis Screening Result: No Definite Risk - Focused Exam Vital Signs: Vital Signs Temp Pulse Resp BP Pulse Ox 12/31/20 08:02 98.2 F 81 20 175/70 H 96 12/31/20 03:53 98 F 86 18 134/59 L 97 12/31/20 00:00 97.5 F 89 18 128/65 96 - Problem List & Annotations (1) Pulmonary embolism SNOMED Code(s): 98310808 Code(s): I26.99 - OTHER PULMONARY EMBOLISM WITHOUT ACUTE COR PULMONALE Status: Acute Current Visit: Yes Qualifiers: Pulmonary embolism type: unspecified Chronicity: acute Acute cor pulmonale presence: without acute cor pulmonale Qualified Code(s): I26.99 - Other pulmonary embolism without acute cor pulmonale (2) Acalculous cholecystitis SNOMED Code(s): 91154954 Code(s): K81.9 - CHOLECYSTITIS, UNSPECIFIED Status: Suspected Current Visit: Yes (3) Benign familial tremor SNOMED Code(s): 874054980 Code(s): G25.0 - ESSENTIAL TREMOR Status: Chronic Current Visit: No (4) CAD (coronary artery disease) SNOMED Code(s): 75390615 Code(s): I25.10 - ATHSCL HEART DISEASE OF [place] CORONARY ARTERY W/O ANG PCTRS Status: Chronic Priority: Medium Current Visit: No Qualifiers: [place] vs. transplanted heart: [place] heart Associated angina: without angina (5) Congestive heart failure SNOMED Code(s): 38500816 Code(s): I50.9 - HEART FAILURE, UNSPECIFIED Status: Chronic Current Visit: No Qualifiers: Heart failure type: systolic Heart failure chronicity: chronic Qualified Code(s): I50.22 - Chronic systolic (congestive) heart failure (6) DM type 2 (diabetes mellitus, type 2) SNOMED Code(s): 90766808 Code(s): E11.9 - TYPE 2 DIABETES MELLITUS WITHOUT COMPLICATIONS Status: Chronic Priority: Medium Current Visit: No Qualifiers: Diabetes mellitus complication status: with other specified complication Qualified Code(s): E11.69 - Type 2 diabetes mellitus with other specified complication (7) Dyslipidemia SNOMED Code(s): 631297295 Code(s): E78.5 - HYPERLIPIDEMIA, UNSPECIFIED Status: Chronic Priority: Low Current Visit: No (8) HTN (hypertension), benign SNOMED Code(s): 33693369 Code(s): I10 - ESSENTIAL (PRIMARY) HYPERTENSION Status: Chronic Priority: Low Current Visit: No (9) WILMA (obstructive sleep apnea) SNOMED Code(s): 51799562 Code(s): G47.33 - OBSTRUCTIVE SLEEP APNEA (ADULT) (PEDIATRIC) Status: Chronic Priority: Medium Current Visit: No Annotation/Comment:: noncompliant with cpap (10) Obesity SNOMED Code(s): 595874141, 843586053 Code(s): E66.9 - OBESITY, UNSPECIFIED Status: Chronic Priority: Low Current Visit: No Qualifiers: Obesity type: due to excess calories - My Orders Last 24 Hours: My Active Orders 12/30/20 10:39 Echo Comp wo Cont [US] Urgent 12/30/20 10:57 RT Post Treatment Assessment [RC] Click to Edit RT Pre-Treatment Assessment [RC] Click to Edit 12/30/20 11:00 Height and Weight [RC] DAILY Intake and Output Strict [RC] ASDIRECTED Fluticasone/Salmeterol [Advair Diskus 100-50] 1 puff INH BIDRT Primidone [Mysoline] 500 mg PO BID 12/30/20 11:30 Enoxaparin [Lovenox] 150 mg SUBCUT Q12H 12/30/20 11:34 ALPRAZolam [Xanax] 1 mg PO Q12H PRN 12/30/20 14:00 Gabapentin [Neurontin] 600 mg PO TID 12/30/20 14:36 Resuscitation Status Routine 12/30/20 15:00 Warfarin Sliding Scale [Coumadin Sliding Scale] 1 each PO DAILY@1400 12/30/20 18:00 Insulin Glarg,Human.Rec.Analog [LantUS Solostar] 24 units SUBCUT QPM 12/30/20 21:00 Simvastatin [Zocor] 40 mg PO BEDTIME Topiramate [Topamax] 50 mg PO BID 12/31/20 08:05 BMP [BASIC METABOLIC PANEL,BMP] [CHEM] Routine CBC WITH AUTO DIFF [HEME] Routine 12/31/20 09:00 Furosemide [Lasix] 40 mg PO DAILY Tamsulosin [Flomax] 0.4 mg PO DAILY lisinopriL [Prinivil] 5 mg PO DAILY 01/01/21 05:11 INR,PT,PROTHROMBIN TIME [COAG] AM 01/02/21 05:11 INR,PT,PROTHROMBIN TIME [COAG] AM 01/03/21 05:11 INR,PT,PROTHROMBIN TIME [COAG] AM - Plan Plan:: This 75-year-old male admitted with acute pulmonary emboli and possible acalculous cholecystitis 1. Acute pulmonary emboli -Could be related to most recent COVID-19 infection patient was fully vaccinated at the time of infection -Started on heparin drip due to possibility of needing quick reversal for possible surgical intervention no surgical intervention at this time for acute cholecystitis -Switch to Lovenox 150 mg twice daily subcutaneously -Due to weight will start Coumadin dosing to help bridge -Monitor INRs daily -Patient remains on 2 L nasal cannula with mild shortness of breath otherwise patient hemodynamically stable -Obtain echo 2. Acalculous cholecystitis -Subsequent imaging of abdominal ultrasound does not show any signs of cholecystitis or pericholecystic fluid -Continue Zosyn today can consider discontinuing tomorrow -Monitor LFTs in a.m. -Appreciate Dr. Dorado's consult no surgical need at this time. 3. DM type II -We will decrease Lantus to 24 units tonight as patient has been taking 42 at home and this morning blood glucose was 78. -NovoLog 7 scale with meals -Hold home oral diabetic medications -Blood sugar checks 3 times daily -ADA diet 4. COPD -Continue oxygen at this time has been on this since code diagnosis 1 month ago -Continue home inhalers including Advair 5. History CAD, CHF, HTN, HLD -Continue Lasix, lisinopril, ASA and statin -Monitor daily weights, strict I's and O's -Echo from 2016 revealed severely decreased EF and left ventricular hypokinesis pending repeat today 6. Familial tremor -Continue Topamax and primidone GI prophylaxis: Omeprazole CODE STATUS: Full code patient is discussing with sons and will further clarify if this will change. Dispo: 2 to 3 days pending improvement and bridging with Coumadin/Lovenox
[2020-12-31] MEDS ORDERED: Lisinopril 5 MG Tab PO SCH (09:00)
[2020-12-31] MEDS ORDERED: Furosemide 40 MG Tab PO SCH (09:00)
[2020-12-31] MEDS ORDERED: Aspirin 81 MG Tab.EC PO SCH (09:00)
[2020-12-31] MEDS ORDERED: Aspirin 325 MG Tab PO SCH (09:00)
[2020-12-31] MEDS ORDERED: Tamsulosin 0.4 MG Cap.ER PO SCH (09:00)
[2020-12-31] MEDS: Primidone 250 MG Tab PO SCH (09:20)
[2020-12-31] MEDS: Topiramate 50 MG Tab PO SCH (09:20)
[2020-12-31] MEDS: Pantoprazole 40 MG Vial IV SCH (09:25)
[2020-12-31 09:47] LABS: BLOOD UREA NITROGEN,BUN 13 mg/dL (7.0-18.0); CARBON DIOXIDE,CO2 25.3 mmol/L (21.0-32.0); CHLORIDE,CL 103 mmol/L (98-107); GLUCOSE RANDOM 109 mg/dL (74-106); POTASSIUM,K 3.6 mmol/L (3.5-5.1); SODIUM,NA 139 mmol/L (136-148)
[2020-12-31] MEDS ORDERED: Warfarin 2.5 MG Tab PO SCH (11:00)
--- NOTE | 2020-12-31 11:12 | PCM.DCSUM1 ---
Discharge Summary - Hospital Course Brief History: This 76-year-old male with past medical history of CHF, CAD, HTN, HLD, DM type II, COPD and obesity with recent Covid 19 infection presented to the ER with complaints of right-sided flank and abdominal pain. He reports that this pain presented itself initially 1 month ago he did not think much of it had some mild nausea and vomiting but this is coinciding with his Covid infection. He report that on the pain started sharp shooting with associated nausea vomiting and poor appetite. He reports that the pain became too much so he decided to be evaluated in the ER. He denies any history of black or bloody bowel movements per denies any recent bowel habit changes. He reports some mild diarrhea. He reports he has been short of breath since COVID-19 diagnosis and treatment. He was admitted for approximately 4 days and treated with remdesivir and dexamethasone. On discharge she was discharged home on 2 L of oxygen which she has remained on since then. Patient has any overt chest pain but does have the right flank pain with intermittent pain on taking deep breaths. Denies any hemoptysis. Denies any history of blood clots in the past. He denies any tobacco use no alcohol use and no recreational drug use. in the ER mild leukocytosis noted 11,000. Platelets 181,000. Sodium 135 potassium 4.1. BUN 19 creatinine 1.0 glucose 158 lactic acid 0.8 troponin initially elevated at 0.293 trended down to 0.134 and subsequently further to 0.121. Patient denied any chest pain. BNP 144 lipase 35 UA showed dark yellow urine with small amount of bilirubin negative nitrites and negative leukocyte esterase WBC 1-3 +1 bacteria few epithelial cells. In the ER CT abdomen pelvis obtained which revealed suboptimally assessed pulmonary embolism in the right middle lobe possible filling defect right lower lobe. New dependent right pleural effusion some mild interstitial edema. Appearance of gallbladder is favoring acute cholecystitis with hazy attenuation around the thickened gallbladder no biliary duct dilation. Recommended abdominal ultrasound to better characterize. Abdominal ultrasound revealed mild thickening of mildly dilated gallbladder wall at 4 mm no sonographic Nascimento sign present. And no pericholecystic fluid. No cholelithiasis or gallbladder sludge noted. Findings not suggestive of acute cholecystitis. Although this could not be entirely excluded. Dr. Dorado, general surgery contacted regarding CT findings did not recommend this patient poor surgical candidate within our facility and recommended transfer to higher level of care. CT angio obtained which revealed acute pulmonary thromboemboli identified involving the right middle lobe right lower lobe and left lingula no heart strain noted on CT. Small right-sided pleural effusion patchy areas of groundglass opacities both lungs likely residual from COVID-19 infection. It was attempted to transfer patient but due to current pandemic situation no bed availability at this time. Patient admitted for stabilization and anticoagulation at this time. As it is felt the pain is likely more secondary to PE then gallbladder. Patient to be admitted inpatient for acute pulmonary embolism. - Discharge Data Discharge Date: 12/31/20 Discharge Disposition: Home, Self-Care 01 Condition: Good - Referral to Home Health Primary Care Physician: Mu Briggs MD - Discharge Diagnosis/Problem(s) (1) Pulmonary embolism SNOMED Code(s): 84524474 ICD Code: I26.99 - OTHER PULMONARY EMBOLISM WITHOUT ACUTE COR PULMONALE Status: Acute Qualifiers: Pulmonary embolism type: unspecified Chronicity: acute Acute cor pulmonale presence: without acute cor pulmonale Qualified Code(s): I26.99 - Other pulmonary embolism without acute cor pulmonale (2) Acalculous cholecystitis SNOMED Code(s): 16013205 ICD Code: K81.9 - CHOLECYSTITIS, UNSPECIFIED Status: Suspected (3) Benign familial tremor SNOMED Code(s): 632194858 ICD Code: G25.0 - ESSENTIAL TREMOR Status: Chronic (4) CAD (coronary artery disease) SNOMED Code(s): 92825926 ICD Code: I25.10 - ATHSCL HEART DISEASE OF [place] CORONARY ARTERY W/O ANG PCTRS Status: Chronic Priority: Medium Qualifiers: [place] vs. transplanted heart: [place] heart Associated angina: without angina (5) Congestive heart failure SNOMED Code(s): 89394772 ICD Code: I50.9 - HEART FAILURE, UNSPECIFIED Status: Chronic Qualifiers: Heart failure type: systolic Heart failure chronicity: chronic Qualified Code(s): I50.22 - Chronic systolic (congestive) heart failure (6) DM type 2 (diabetes mellitus, type 2) SNOMED Code(s): 61083422 ICD Code: E11.9 - TYPE 2 DIABETES MELLITUS WITHOUT COMPLICATIONS Status: Chronic Priority: Medium Qualifiers: Diabetes mellitus complication status: with other specified complication Qualified Code(s): E11.69 - Type 2 diabetes mellitus with other specified complication (7) Dyslipidemia SNOMED Code(s): 243780339 ICD Code: E78.5 - HYPERLIPIDEMIA, UNSPECIFIED Status: Chronic Priority: Low (8) HTN (hypertension), benign SNOMED Code(s): 08400356 ICD Code: I10 - ESSENTIAL (PRIMARY) HYPERTENSION Status: Chronic Priority: Low (9) WILMA (obstructive sleep apnea) SNOMED Code(s): 14435045 ICD Code: G47.33 - OBSTRUCTIVE SLEEP APNEA (ADULT) (PEDIATRIC) Status: Chronic Priority: Medium Problem Details: noncompliant with cpap (10) Obesity SNOMED Code(s): 098560950, 211375666 ICD Code: E66.9 - OBESITY, UNSPECIFIED Status: Chronic Priority: Low Qualifiers: Obesity type: due to excess calories - Patient Summary/Data Consults: Consultations 12/29/20 22:14 Consult to Physician [CONS] Stat Hospital Course: Admission diagnoses Pulmonary embolism Possible cholecystitis Discharge diagnoses Pulmonary embolism Other PMH Benign familial tremor CAD CHF DM type II Dyslipidemia HTN WILMA Obesity Patient was admitted secondary to right sided flank/abdominal pain. Initially was suspected that patient had acute cholecystitis and had work-up for this but ultrasound imaging suggested this is clear not cholecystitis mildly distended gallbladder. General surgery was consulted felt this was likely not a cholecystitis may be secondary to recent nausea and vomiting. Patient was found to have subsegmental pulmonary embolism to the right lower and middle lobe. This could be potentially causing right-sided pain that he was experiencing. Patient has been on 2 L of nasal cannula since diagnosis and treatment of Covid approximately 1 month ago. Patient was noted to have elevated troponin on arrival CT did not show any right heart strain but this is concerning as PEs may have caused some ischemic stress to the heart. Patient will be referred to Dr. Canela, cardiology here in [place]. He should have stress test when able. He reports his previous stress test was probably 2003 2004 after his stenting with Dr. Kelley. Regarding pulmonary embolism. He was initially treated with heparin drip due to possible need for surgical intervention with suspected cholecystitis. Since ago intervention was not needed, Lovenox was started along with Coumadin secondary to patient obesity. Patient was treated with Lovenox 100 mg twice daily subcutaneous along with 10 mg of Coumadin on 12/30/2020 followed by 7.5 today and will continue on 5 mg daily until INR check with PCP on Tuesday 01/02. I did speak with PCP, Dr. Mu Briggs, regarding recent diagnoses and hospitalization and to be keeping an eye out for INR on Tuesday. Dr. Briggs was updated on treatment regimen and will continue to follow INRs from now on. Patient feels comfortable with Lovenox injections as he gives insulin injections at home. He is to restart all home medications at this time. He was counseled on monitoring for signs of bleeding. He was also counseled on dietary habits with keeping steady intake of vitamin K as possible. Him and his son updated at bedside. Patient will be discharged home today with 5 more days of Lovenox 150 mg twice daily subcutaneous injections. Coumadin 5 mg starting tomorrow 01/01. He is to return to the ER clinic if concerns should arise sooner. Follow-up with Dr. Briggs next week and INR check on 01/02/2021. - Patient Instructions Diet: Heart Healthy Diet, Diabetic Diet Activity: No Strenuous Activities Showering/Bathing: May Shower Notify Provider of: Fever, Increased Pain, Swelling and Redness, Drainage, Nausea and/or Vomiting Other/Special Instructions: INR check On tuesday, Dr Briggs will be aware and will notify of results and dosing of Coumadin moving forward. Monitor for signs of bleeding, if you shuld fall and hit your head please seek evaluation in the ER. Lovenox injections twice daily for 5 more days. - Discharge Plan *PRESCRIPTION DRUG MONITORING PROGRAM REVIEWED*: Not Applicable *COPY OF PRESCRIPTION DRUG MONITORING REPORT IN PATIENT ASHLEY: Not Applicable Prescriptions/Med Rec: Warfarin [Coumadin] 5 mg PO DAILY #20 tab Enoxaparin [Lovenox] 150 mg SUBCUT Q12H #10 syringe Home Medications: Home Meds Fluticasone/Salmeterol [Advair Diskus 100-50] 1 puff INH BID 08/06/15 [History] Gabapentin [Neurontin] 600 mg PO TID 08/06/15 [History] Insulin Glarg,Human.Rec.Analog [Lantus] 42 unit SUBCUT QPM 08/06/15 [History] Lisinopril 5 mg PO DAILY 08/06/15 [History] Omeprazole 20 mg PO DAILY 08/06/15 [History] Primidone 500 mg PO BID 08/06/15 [History] Simvastatin 40 mg PO BEDTIME 08/06/15 [History] Tamsulosin [Flomax] 0.4 mg PO DAILY 08/06/15 [History] Furosemide [Lasix] 40 mg PO DAILY #0 08/07/15 [Rx] ALPRAZolam [Alprazolam] 1 mg PO BID PRN 11/25/20 [History] Cyanocobalamin (Vitamin B-12) [Vitamin B-12] 100 mcg PO DAILY 11/25/20 [History] Fluticasone Propionate [Flonase] 2 sprays NASBOTH BEDTIME 11/25/20 [History] Pioglitazone HCl/Metformin HCl [Actoplus Met 15 MG-850 MG] 15 - 180 mg PO DAILY 11/25/20 [History] Potassium Chloride 10 meq PO DAILY 11/25/20 [History] Albuterol/Ipratropium [Combivent Respimat] 1 puff INH Q4HRRT PRN 12/30/20 [Hist ory] Aspirin [Aspirin EC] 81 mg PO DAILY 12/30/20 [History] Topiramate [Topamax] 50 mg PO BID 12/30/20 [History] Enoxaparin [Lovenox] 150 mg SUBCUT Q12H #10 syringe 12/31/20 [Rx] Warfarin [Coumadin] 5 mg PO DAILY #20 tab 12/31/20 [Rx] Oxygen Therapy Mode: Nasal Cannula Oxygen Flow Rate (L/min): 2 Patient Handouts: Vitamin K Foods and Warfarin, Enoxaparin injection, Warfarin tablets, Pulmonary Embolism Referrals: Zoila Canela MD [Physician] - 01/23/21 8:15 am Mu Briggs MD [Primary Care Provider] - 01/09/21 12:30 pm - Discharge Summary/Plan Comment DC Time >30 min.: Yes Total # of Minutes for Discharge Time: 35, counseling on new medications along with reaching out to Dr Briggs to close treatment loop and inform him of upcoming labwork being sent to him. - Patient Data Vitals - Most Recent: Last Vital Signs Temp 98.2 F 12/31/20 08:02 Pulse 81 12/31/20 08:02 Resp 20 12/31/20 08:02 BP 175/70 H 12/31/20 09:20 Pulse Ox 96 12/31/20 08:02 Weight - Most Recent: 148.9 kg I&O - Last 24 hours: Intake & Output 12/30/20 12/31/20 12/31/20 22:59 06:59 14:59 Intake Total 550 Output Total 700 Balance -150 Lab Results - Last 24 hrs: Laboratory Results - last 24 hr 12/30/20 12/30/20 12/30/20 Range/Units 08:15 11:21 17:14 WBC (4.0-11.0) K/uL RBC (4.50-5.90) M/uL Hgb (13.0-17.0) g/dL Hct (38.0-50.0) % MCV (80.0-98.0) fL MCH (27.0-32.0) pg MCHC (31.0-37.0) g/dL RDW Std Deviation (28.0-62.0) fl RDW Coeff of Romina (11.0-15.0) % Plt Count (150-400) K/uL MPV (7.40-12.00) fL Neut % (Auto) (48.0-80.0) % Lymph % (Auto) (16.0-40.0) % [place] % (Auto) (0.0-15.0) % Eos % (Auto) (0.0-7.0) % Baso % (Auto) (0.0-1.5) % Neut # (Auto) (1.4-5.7) K/uL Lymph # (Auto) (0.6-2.4) K/uL [place] # (Auto) (0.0-0.8) K/uL Eos # (Auto) (0.0-0.7) K/uL Baso # (Auto) (0.0-0.1) K/uL Nucleated RBC % /100WBC Nucleated RBCs # K/uL INR 1.16 Sodium (136-148) mmol/L Potassium (3.5-5.1) mmol/L Chloride (98-107) mmol/L Carbon Dioxide (21.0-32.0) mmol/L BUN (7.0-18.0) mg/dL Creatinine (0.8-1.3) mg/dL Est Cr Clr Drug Dosing mL/min Estimated GFR (MDRD) ml/min Glucose (74-106) mg/dL POC Glucose 129 H 114 H (70-99) mg/dL Calcium (8.5-10.1) mg/dL 12/31/20 12/31/20 12/31/20 Range/Units 06:10 08:35 08:35 WBC 6.40 (4.0-11.0) K/uL RBC 3.29 L (4.50-5.90) M/uL Hgb 11.0 L (13.0-17.0) g/dL Hct 33.0 L (38.0-50.0) % MCV 100.3 H (80.0-98.0) fL MCH 33.4 H (27.0-32.0) pg MCHC 33.3 (31.0-37.0) g/dL RDW Std Deviation 52.2 (28.0-62.0) fl RDW Coeff of Romina 14 (11.0-15.0) % Plt Count 179 (150-400) K/uL MPV 11.50 (7.40-12.00) fL Neut % (Auto) 74.4 (48.0-80.0) % Lymph % (Auto) 16.4 (16.0-40.0) % [place] % (Auto) 7.0 (0.0-15.0) % Eos % (Auto) 1.9 (0.0-7.0) % Baso % (Auto) 0.3 (0.0-1.5) % Neut # (Auto) 4.8 (1.4-5.7) K/uL Lymph # (Auto) 1.1 (0.6-2.4) K/uL [place] # (Auto) 0.5 (0.0-0.8) K/uL Eos # (Auto) 0.1 (0.0-0.7) K/uL Baso # (Auto) 0.0 (0.0-0.1) K/uL Nucleated RBC % 0.0 /100WBC Nucleated RBCs # 0 K/uL INR 1.37 Sodium 139 (136-148) mmol/L Potassium 3.6 (3.5-5.1) mmol/L Chloride 103 (98-107) mmol/L Carbon Dioxide 25.3 (21.0-32.0) mmol/L BUN 13 (7.0-18.0) mg/dL Creatinine 0.9 (0.8-1.3) mg/dL Est Cr Clr Drug Dosing 71.77 mL/min Estimated GFR (MDRD) > 60.0 ml/min Glucose 109 H (74-106) mg/dL POC Glucose (70-99) mg/dL Calcium 8.6 (8.5-10.1) mg/dL KATRINA Results - Last 24 hrs: Microbiology 12/29/20 19:50 Aerobic Blood Culture - Preliminary Blood - Venous - Lab Draw NO GROWTH AFTER 1 DAY Anaerobic Blood Culture - Final 12/29/20 19:40 Aerobic Blood Culture - Preliminary Blood - Venous NO GROWTH AFTER 1 DAY Anaerobic Blood Culture - Preliminary NO GROWTH AFTER 1 DAY Med Orders - Current: Current Medications Acetaminophen (Acetaminophen 325 Mg Tab) 650 mg PO Q4H PRN PRN Reason: Pain (mild 1-3) Albuterol/Ipratropium (Albuterol/Ipratropium 3.0-0.5 Mg/3 Ml Neb Soln) 3 ml NEB Q4HRRT PRN PRN Reason: Shortness Of Breath/wheezing Alprazolam (Alprazolam 0.5 Mg Tab) 1 mg PO Q12H PRN PRN Reason: Anxiety Aspirin (Aspirin 81 Mg Tab.Ec) 81 mg PO DAILY [facility] Last Admin: 12/31/20 09:20 Dose: 81 mg Documented by: Dextrose/Water (50% Dextrose In Water 50 Ml Syringe) 50 ml IVPUSH ASDIRECTED PRN PRN Reason: Hypoglycemia Enoxaparin Sodium (Enoxaparin 150 Mg/1 Ml Syringe) 150 mg SUBCUT Q12H [facility] Last Admin: 12/30/20 23:38 Dose: 150 mg Documented by: Furosemide (Furosemide 40 Mg Tab) 40 mg PO DAILY [facility] Last Admin: 12/31/20 09:20 Dose: 40 mg Documented by: Gabapentin (Gabapentin 300 Mg Cap) 600 mg PO TID [facility] Last Admin: 12/31/20 06:51 Dose: 600 mg Documented by: Glucagon (Glucagon,Human Recombinant 1 Mg Vial) 1 mg IM ASDIRECTED PRN PRN Reason: Hypoglycemia Insulin Aspart (Insulin Aspart 100 Units/Ml 3 Ml Pen) 0 unit SUBCUT TIDAC [facility]; Protocol Last Admin: 12/31/20 07:30 Dose: Not Given Documented by: Insulin Glargine (Insulin Glargine,Human Rec. Analog 100 Units/Ml 3 Ml Pen) 24 units SUBCUT QPM [facility] Last Admin: 12/30/20 17:31 Dose: 24 units Documented by: Lisinopril (Lisinopril 5 Mg Tab) 5 mg PO DAILY [facility] Last Admin: 12/31/20 09:20 Dose: 5 mg Documented by: Morphine Sulfate (Morphine 2 Mg/Ml Syringe) 2 mg IVPUSH Q4H PRN PRN Reason: Pain (severe 7-10) Last Admin: 12/30/20 00:56 Dose: 2 mg Documented by: Ondansetron HCl (Ondansetron 4 Mg/2 Ml Sdv) 4 mg IVPUSH Q4H PRN PRN Reason: Nausea/Vomiting Pantoprazole Sodium (Pantoprazole 40 Mg Vial) 40 mg IV DAILY [facility] Last Admin: 12/31/20 09:25 Dose: 40 mg Documented by: Primidone (Primidone 250 Mg Tab) 500 mg PO BID [facility] Last Admin: 12/31/20 09:20 Dose: 500 mg Documented by: Fluticasone/Salmeterol (Fluticasone/Salmeterol 100-50 Mcg Inhalation Powder 14/Diskus) 1 puff INH BIDRT [facility] Last Admin: 12/31/20 06:51 Dose: 1 puff Documented by: Simvastatin (Simvastatin 40 Mg Tab) 40 mg PO BEDTIME [facility] Last Admin: 12/30/20 23:40 Dose: 40 mg Documented by: Sodium Chloride (Sodium Chloride 0.9% 10 Ml Syringe) 10 ml FLUSH ASDIRECTED PRN PRN Reason: Keep Vein Open Last Admin: 12/29/20 12:25 Dose: 10 ml Documented by: Sodium Chloride (Sodium Chloride 0.9% 2.5 Ml Syringe) 2.5 ml FLUSH ASDIRECTED PRN PRN Reason: Keep Vein Open Last Admin: 12/29/20 12:43 Dose: 2.5 ml Documented by: Tamsulosin HCl (Tamsulosin 0.4 Mg Cap.Er) 0.4 mg PO DAILY [facility] Last Admin: 12/31/20 09:20 Dose: 0.4 mg Documented by: Topiramate (Topiramate 50 Mg Tab) 50 mg PO BID [facility] Last Admin: 12/31/20 09:20 Dose: 50 mg Documented by: Warfarin Sodium (Warfarin Sliding Scale) 1 each PO DAILY@1400 [facility] Last Admin: 12/30/20 16:06 Dose: Not Given Documented by: Discontinued Medications Aspirin (Aspirin 81 Mg Tab.Chew) 243 mg PO ONETIME ONE Stop: 12/29/20 16:55 Last Admin: 12/29/20 18:37 Dose: 243 mg Documented by: Furosemide (Furosemide 40 Mg Tab) 40 mg PO ONETIME ONE Stop: 12/30/20 15:01 Last Admin: 12/30/20 15:11 Dose: 40 mg Documented by: Heparin Sodium (Porcine) (Heparin Sodium 5,000 Units/Ml Vial) 5,000 units IVPUSH ONETIME ONE; Protocol Stop: 12/29/20 18:49 Last Admin: 12/29/20 19:21 Dose: 5,000 units Documented by: Heparin Sodium (Porcine) (Heparin Sodium 5,000 Units/Ml Vial) Confirm Administered Dose 5,000 units .ROUTE .STK-MED ONE Stop: 12/29/20 19:15 Last Admin: 12/29/20 19:44 Dose: Not Given Documented by: Heparin Sodium (Porcine) (Heparin Sodium 5,000 Units/Ml Vial) 1,500 units IVPUSH .BOLUS ONE Stop: 12/30/20 02:38 Last Admin: 12/30/20 02:51 Dose: 1,500 units Documented by: Sodium Chloride (Normal Saline) 1,000 mls @ 999 mls/hr IV STAT ONE Stop: 12/29/20 19:50 Last Admin: 12/29/20 19:33 Dose: 999 mls/hr Documented by: Heparin Sodium/Sodium Chloride (Heparin 25,000 Units In 1/2 Ns 500 Ml) 500 mls @ 25.891 mls/hr IV TITRATE EDI; Protocol Last Titration: 12/30/20 09:47 Dose: 10.7 units/kg/hr, 31.843 mls/hr Documented by: Heparin Sodium/Sodium Chloride (Heparin 25,000 Units In 1/2 Ns 500 Ml) Confirm Administered Dose 500 mls @ as directed .ROUTE .STK-MED ONE Stop: 12/29/20 19:15 Last Admin: 12/29/20 19:45 Dose: Not Given Documented by: Piperacillin Sod/Tazobactam (Sod 4.5 gm/ Sodium Chloride) 100 mls @ 100 mls/hr IV ONETIME ONE Stop: 12/29/20 20:16 Last Admin: 12/29/20 19:45 Dose: 100 mls/hr Documented by: Lactated Ringer's (Ringers, Lactated) 1,000 mls @ 125 mls/hr IV ASDIRECTED [facility] Last Admin: 12/30/20 10:06 Dose: 125 mls/hr Documented by: Piperacillin Sod/Tazobactam (Sod 3.375 gm/ Sodium Chloride) 50 mls @ 100 mls/hr IV Q8H [facility] Last Admin: 12/31/20 03:45 Dose: 100 mls/hr Documented by: Iopamidol (Iopamidol 755 Mg/Ml 500 Ml Multipack Bottle) 100 ml IVPUSH ONETIME STA Stop: 12/29/20 19:18 Last Admin: 12/29/20 19:18 Dose: 100 ml Documented by: Iopamidol (Iopamidol 755 Mg/Ml 500 Ml Multipack Bottle) 100 ml IVPUSH ONETIME ONE Stop: 12/29/20 20:50 Last Admin: 12/29/20 21:20 Dose: 100 ml Documented by: Ketorolac Tromethamine (Ketorolac 30 Mg/Ml Sdv) 30 mg IVPUSH ONETIME ONE Stop: 12/29/20 12:31 Last Admin: 12/29/20 12:42 Dose: 30 mg Documented by: Non-Formulary Medication (Insulin Glarg,Human.Rec.Analog) 42 unit SUBCUT QPM [facility] Ondansetron HCl (Ondansetron 4 Mg/2 Ml Sdv) 4 mg IVPUSH ONETIME ONE Stop: 12/29/20 12:31 Last Admin: 12/29/20 12:35 Dose: 4 mg Documented by: Ondansetron HCl (Ondansetron 4 Mg/2 Ml Sdv) Confirm Administered Dose 4 mg .ROUTE .STK-MED ONE Stop: 12/29/20 12:47 Last Admin: 12/29/20 13:30 Dose: Not Given Documented by: Warfarin Sodium (Warfarin 10 Mg Tab) 10 mg PO ONETIME [facility] Last Admin: 12/30/20 15:55 Dose: 10 mg Documented by: Warfarin Sodium (Warfarin 2.5 Mg Tab) 7.5 mg PO 12/31/20@1100 [facility] Stop: 12/31/20 11:01
[2020-12-31] MEDS: Enoxaparin 150 MG/1 ML Syringe SUBCUT SCH (11:48)
--- NOTE | 2021-01-02 12:50 | ECHO ---
EXAM DATE: 12/29/20 PATIENT'S AGE: 75 The ECHO report has been scanned into [facility] and can be seen in this patient's EMR (Electronic Medical Record) under the REPORTS section. The report has also been scanned into PACS. [facility]
== END 2020-12-31 12:25 | disposition home or self-care (01) | DRG 176 ==
LOC: MW.ED 11:57 → MW.MS 22:11
PROVIDERS: ADMIT Student in an Organized Health Care Education/Training Program; ATTEND Student in an Organized Health Care Education/Training Program
DX: I26.99 Other pulmonary embolism without acute cor pulmonale (principal); K80.00 Calculus of gallbladder with acute cholecystitis without obstruction; I50.22 Chronic systolic (congestive) heart failure; Z68.42 Body mass index [BMI] 45.0-49.9, adult; E11.9 Type 2 diabetes mellitus without complications; J90 Pleural effusion, not elsewhere classified; I50.9 Heart failure, unspecified; I25.10 Atherosclerotic heart disease of native coronary artery without angina pectoris; E78.5 Hyperlipidemia, unspecified; I11.0 Hypertensive heart disease with heart failure; G47.33 Obstructive sleep apnea (adult) (pediatric); E66.9 Obesity, unspecified; E78.00 Pure hypercholesterolemia, unspecified; K21.9 Gastro-esophageal reflux disease without esophagitis; J44.9 Chronic obstructive pulmonary disease, unspecified; Z86.16 Personal history of COVID-19; E11.42 Type 2 diabetes mellitus with diabetic polyneuropathy; E83.42 Hypomagnesemia; Z79.4 Long term (current) use of insulin; Z79.82 Long term (current) use of aspirin; Z79.899 Other long term (current) drug therapy; Z87.891 Personal history of nicotine dependence; I25.2 Old myocardial infarction; Z79.01 Long term (current) use of anticoagulants; Z98.41 Cataract extraction status, right eye; Z98.42 Cataract extraction status, left eye; B94.8 Sequelae of other specified infectious and parasitic diseases; Z99.81 Dependence on supplemental oxygen; Z95.5 Presence of coronary angioplasty implant and graft
CPT/HCPCS: 36415; 71275; 74177; 76705; 80053; 81001; 83605; 83690; 83735; 83880; 84484 ×3; 85025; 85730; 87040 ×2; 93005; A9270; J1644 ×2; J1885; J2405; J2543; J7030; Q9967 ×2; 80048; 82947; 84100; 85610; 93306; 96365; 96366; 96368; 96375; 99285-25; C9113; J1650; J1815-GY; J2270; J7120

== ENCOUNTER 2021-04-24 11:20 | Emergency (ER) | payer MEDICARE, OTHER ==
--- NOTE | 2021-04-24 11:37 | EDM.PDOC ---
ED HPI GENERAL MEDICAL PROBLEM - General Chief Complaint: General Stated Complaint: EMS-PT FELL FROM STANDING POSITION STATES EMS Time Seen by Provider: 04/24/21 11:24 Source of Information: Reports: Patient History Limitations: Reports: No Limitations - History of Present Illness INITIAL COMMENTS - FREE TEXT/NARRATIVE: 75-year-old male currently on anticoagulation presents for fall injury. Patient was getting out of his truck at the [employer] parking lot when he slipped on the ice and fell on his left side. He denies hitting his head or LOC. He did hit his left elbow and left knee. He notes some pain in his left knee and ankle. He was attended by EMS and has been ambulatory after the fall. Denies any other symptoms. - Related Data Allergies Allergy/AdvReac Type Severity Reaction Status Date / Time No Known Allergies Allergy Verified 04/24/21 11:32 Home Meds: Home Meds Fluticasone/Salmeterol [Advair Diskus 100-50] 1 puff INH BID 08/06/15 [History] Gabapentin [Neurontin] 600 mg PO TID 08/06/15 [History] Insulin Glarg,Human.Rec.Analog [Lantus] 42 unit SUBCUT QPM 08/06/15 [History] Lisinopril 5 mg PO DAILY 08/06/15 [History] Omeprazole 20 mg PO DAILY 08/06/15 [History] Primidone 500 mg PO BID 08/06/15 [History] Simvastatin 40 mg PO BEDTIME 08/06/15 [History] Tamsulosin [Flomax] 0.4 mg PO DAILY 08/06/15 [History] Furosemide [Lasix] 40 mg PO DAILY #0 08/07/15 [Rx] ALPRAZolam [Alprazolam] 1 mg PO BID PRN 11/25/20 [History] Cyanocobalamin (Vitamin B-12) [Vitamin B-12] 100 mcg PO DAILY 11/25/20 [History] Fluticasone Propionate [Flonase] 2 sprays NASBOTH BEDTIME 11/25/20 [History] Pioglitazone HCl/Metformin HCl [Actoplus Met 15 MG-850 MG] 15 - 180 mg PO DAILY 11/25/20 [History] Potassium Chloride 10 meq PO DAILY 11/25/20 [History] Albuterol/Ipratropium [Combivent Respimat] 1 puff INH Q4HRRT PRN 12/30/20 [History] Aspirin [Aspirin EC] 81 mg PO DAILY 12/30/20 [History] Topiramate [Topamax] 50 mg PO BID 12/30/20 [History] Enoxaparin [Lovenox] 150 mg SUBCUT Q12H #10 syringe 12/31/20 [Rx] Warfarin [Coumadin] 5 mg PO DAILY #20 tab 12/31/20 [Rx] Past Medical History HEENT History: Reports: Cataract, Sinusitis, Other (See Below) Cardiovascular History: Reports: CAD, High Cholesterol, Hypertension, [place], SOB on Exertion, Stents Respiratory History: Reports: Asthma, COPD, SOB Gastrointestinal History: Reports: GERD Other Gastrointestinal History: Here for lower abdominal pain Genitourinary History: Reports: BPH Musculoskeletal History: Reports: Amputation, Other (See Below) Other Musculoskeletal History: right index finger amputation, essential tremor (Parkinsons ruled out) Neurological History: Reports: Neuropathy, Diabetic, Other (See Below) Other Neuro History: tremors Psychiatric History: Reports: Anxiety Endocrine/Metabolic History: Reports: Diabetes, Type II, Hypomagnesemia, Obesity/BMI 30+ Hematologic History: Reports: Anticoagulation Therapy Oncologic (Cancer) History: Reports: Other (See Below) - Infectious Disease History Infectious Disease History: Reports: Chicken Pox, Influenza, Measles - Past Surgical History Head Surgeries/Procedures: Reports: None HEENT Surgical History: Reports: Cataract Surgery Other HEENT Surgeries/Procedures: bilateral eye surgery Cardiovascular Surgical History: Reports: Coronary Artery Stent Male Surgical History: Reports: Vasectomy Musculoskeletal Surgical History: Reports: Amputation Dermatological Surgical History: Reports: None Social & Family History - Family History Family Medical History: No Pertinent Family History - Caffeine Use Caffeine Use: Reports: None - Living Situation & Occupation Occupation: Retired ED ROS GENERAL - Review of Systems Review Of Systems: Comprehensive ROS is negative, except as noted in HPI. ED EXAM, GENERAL - Physical Exam Exam: See Below Exam Limited By: No Limitations General Appearance: Alert, WD/WN, No Apparent Distress Eye Exam: Bilateral Eye: EOMI, PERRL Ears: Hearing Grossly Normal Throat/Mouth: Normal Voice, No Airway Compromise Head: Atraumatic, Normocephalic Neck: Normal Inspection, Non-Tender Respiratory/Chest: No Respiratory Distress, Lungs Clear, Normal Breath Sounds, No Accessory Muscle Use Cardiovascular: Normal Peripheral Pulses, Regular Rate, Rhythm GI/Abdominal: Soft, Non-Tender Extremities: Normal Inspection, Other (mild TTP lateral L knee joint, mild TTP lateral malleolus) Neurological: Alert, Normal Cognition Psychiatric: Normal Affect, Normal Mood Skin Exam: Warm, Dry, Intact, Normal Color, Other (abrasion to L forearm and elbow; abrasion to R forearm ) Course - Vital Signs Last Recorded V/S: Last Vital Signs Temp 95.6 F L 04/24/21 11:32 Pulse 84 04/24/21 11:32 Resp 16 04/24/21 11:32 BP 139/56 L 04/24/21 11:32 Pulse Ox 96 04/24/21 11:32 - Orders/Labs/Meds Meds: Medications Discontinued Medications Generic Name Dose Route Start Last Admin Trade Name Freq PRN Reason Stop Dose Admin Oxycodone/Acetaminophen 1 tab 04/24/21 11:56 04/24/21 12:00 Acetaminophen/Oxycodone 325-5 Mg Tab PO 04/24/21 11:57 1 tab ONETIME ONE Administration - Re-Assessments/Exams Free Text/Narrative Re-Assessment/Exam: 04/24/21 11:37 We will get x-ray imaging to ensure no fracture or dislocation. 04/24/21 12:34 No injury noted on x-ray imaging. Will discharge patient with PMD follow-up. Return precautions were discussed at length. Departure - Departure Time of Disposition: 12:34 Disposition: Home, Self-Care 01 Condition: Good Clinical Impression: Fall Qualifiers: Encounter type: initial encounter Qualified Code(s): W19.XXXA - Unspecified fall, initial encounter - Discharge Information Instructions: Fall Prevention in the Home, Adult Forms: ED Department Discharge Additional Instructions: The following information is given to patients seen in the emergency department who are being discharged to home. This information is to outline your options for follow-up care. We provide all patients seen in our emergency department with a follow-up referral. The need for follow-up, as well as the timing and circumstances, are variable depending upon the specifics of your emergency department visit. If you don't have a primary care physician on staff, we will provide you with a referral. We always advise you to contact your personal physician following an emergency department visit to inform them of the circumstance of the visit and for follow-up with them and/or the need for any referrals to a consulting specialist. The emergency department will also refer you to a specialist when appropriate. This referral assures that you have the opportunity for follow-up care with a specialist. All of these measure are taken in an effort to provide you with optimal care, which includes your follow-up. Under all circumstances we always encourage you to contact your private physician who remains a resource for coordinating your care. When calling for follow-up care, please make the office aware that this follow-up is from your recent emergency room visit. If for any reason you are refused follow-up, please contact the [facility] Emergency Department at and asked to speak to the emergency department charge nurse. Please follow up with your primary care physician. If you do not have a primary care physician, see below: [facility] [address] [place] [id number] [facility] [address] [place] [address] [facility] [address] [place] [id number] Sepsis Event Note (ED) - Focused Exam Vital Signs: Vital Signs Temp Pulse Resp BP Pulse Ox 04/24/21 11:32 95.6 F L 84 16 139/56 L 96
[2021-04-24] MEDS ORDERED: Acetaminophen/oxyCODONE 325-5 MG Tab PO ONE (11:56)
--- NOTE | 2021-04-24 12:30 | CR ---
Indication: Trauma, fall. Technique: Left knee 2 views. Comparison: None. Findings: Bones: Alignment is normal. No fractures or bone lesions. Joint spaces: Minimal arthritic changes. No joint effusion. Soft tissues: Unremarkable. Impression: No sign of acute injury. Dictated by Markell Ceballos MD @ 04/24/2021 12:29:29 PM (Electronically Signed)
--- NOTE | 2021-04-24 12:32 | CR ---
Indication: Trauma. Technique: Left ankle 3 views. Comparison: None. Findings: Bones: Alignment is normal. No fractures or bone lesions. Joint spaces: Unremarkable. Soft tissues: Unremarkable. Impression: No sign of acute injury. Dictated by Markell Ceballos MD @ 04/24/2021 12:30:54 PM (Electronically Signed)
[2021-04-24] MEDS ORDERED: Diphtheria,Pertussis(Acell),Tetanus Vaccine 0.5 ML Syringe IM ONE (12:33)
[2021-04-24 12:53] VITALS: BP 118/52; PULSE 78
== END 2021-04-24 12:55 | disposition home or self-care (01) ==
LOC: MW.ED 11:20
DX: M25.562 Pain in left knee (principal); M25.572 Pain in left ankle and joints of left foot; E11.9 Type 2 diabetes mellitus without complications; I25.10 Atherosclerotic heart disease of native coronary artery without angina pectoris; E78.00 Pure hypercholesterolemia, unspecified; I10 Essential (primary) hypertension; I25.2 Old myocardial infarction; E66.9 Obesity, unspecified; Z68.41 Body mass index [BMI] 40.0-44.9, adult; Z79.82 Long term (current) use of aspirin; Z79.899 Other long term (current) drug therapy; Z79.01 Long term (current) use of anticoagulants; Z79.4 Long term (current) use of insulin; Z23 Encounter for immunization
CPT/HCPCS: 73560; 73610; 90471; 90715; 99283; A9270

== ENCOUNTER 2021-05-24 15:17 | Emergency (ER) | payer MEDICARE, OTHER ==
[2021-05-24 17:02] VITALS: BP 123/45; PULSE 85
== END 2021-05-24 16:50 | disposition home or self-care (01) ==
LOC: MW.ED 15:17
DX: M54.2 Cervicalgia (principal); M25.562 Pain in left knee; I25.10 Atherosclerotic heart disease of native coronary artery without angina pectoris; E78.00 Pure hypercholesterolemia, unspecified; I10 Essential (primary) hypertension; I25.2 Old myocardial infarction; J44.9 Chronic obstructive pulmonary disease, unspecified; K21.9 Gastro-esophageal reflux disease without esophagitis; N40.0 Benign prostatic hyperplasia without lower urinary tract symptoms; E11.40 Type 2 diabetes mellitus with diabetic neuropathy, unspecified; E66.01 Morbid (severe) obesity due to excess calories; Z68.42 Body mass index [BMI] 45.0-49.9, adult; Z86.16 Personal history of COVID-19; Z86.711 Personal history of pulmonary embolism; Z79.01 Long term (current) use of anticoagulants; Z79.4 Long term (current) use of insulin; Z79.82 Long term (current) use of aspirin; Z79.899 Other long term (current) drug therapy; W18.30XA Fall on same level, unspecified, initial encounter; Y93.E1 Activity, personal bathing and showering
CPT/HCPCS: 70450; 70450-26; 72125; 72125-26; 99284-25

== ENCOUNTER 2023-11-04 11:12 | Emergency (ER) | payer MEDICARE, OTHER ==
[2023-11-05 16:21] VITALS: BP 106/70; PULSE 116
== END 2023-11-04 13:18 | disposition home or self-care (01) ==
LOC: MW.ED 11:21
DX: S42.212A Unspecified displaced fracture of surgical neck of left humerus, initial encounter for closed fracture (principal); I10 Essential (primary) hypertension; I25.10 Atherosclerotic heart disease of native coronary artery without angina pectoris; I25.2 Old myocardial infarction; E78.00 Pure hypercholesterolemia, unspecified; J44.9 Chronic obstructive pulmonary disease, unspecified; K21.9 Gastro-esophageal reflux disease without esophagitis; E11.40 Type 2 diabetes mellitus with diabetic neuropathy, unspecified; E66.9 Obesity, unspecified; Z95.5 Presence of coronary angioplasty implant and graft; Z86.16 Personal history of COVID-19; Z79.51 Long term (current) use of inhaled steroids; Z79.899 Other long term (current) drug therapy; Z79.4 Long term (current) use of insulin; Z79.01 Long term (current) use of anticoagulants; Z68.43 Body mass index [BMI] 50.0-59.9, adult; W01.0XXA Fall on same level from slipping, tripping and stumbling without subsequent striking against object, initial encounter
CPT/HCPCS: 73030-26-LT; 73030-LT; 73060-26-LT; 73060-LT; 99283; 99284

== ENCOUNTER 2023-12-01 09:07 | Inpatient (IN) | payer MEDICARE, OTHER ==
[2023-12-01] MEDS ORDERED: Sodium Chloride 0.9% 20 ML SDV IV PRN (09:36)
[2023-12-01] MEDS ORDERED: Sodium Chloride 0.9% 2.5 ML Syringe FLUSH PRN (09:36)
[2023-12-01] MEDS ORDERED: Sodium Chloride 0.9% 10 ML Syringe FLUSH PRN (09:36)
[2023-12-01 10:00] LABS: BASOPHILS ABSOLUTE AUTO 0.05 K/uL (0.00-0.20); BASOPHILS PERCENT AUTO 0.7 % (0.0-1.0); EOSINOPHILS ABSOLUTE AUTO 0.03 K/uL (0.00-0.45); EOSINOPHILS PERCENT AUTO 0.4 % (0.0-6.0); HEMATOCRIT 41.2 % (42.0-52.0); IMMATURE GRAN ABSOLUTE AUTO 0.02 K/uL (0.00-0.05); IMMATURE GRAN PERCENT AUTO 0.3 % (0.0-0.4); LYMPHOCYTES ABSOLUTE AUTO 1.06 K/uL (1.00-4.80); LYMPHOCYTES PERCENT AUTO 14.5 % (24.0-44.0); MEAN CORPUSCULAR HEMOGLOBIN 34.7 pg (28.0-32.0); MEAN CORPUSCULAR HGB CONC 31.6 g/dL (32.0-36.0); MEAN CORPUSCULAR VOLUME 109.9 fL (83.0-99.0); MONOCYTES ABSOLUTE AUTO 0.42 K/uL (0.00-0.80); MONOCYTES PERCENT AUTO 5.8 % (0.0-8.0); NEUTROPHILS ABSOLUTE AUTO 5.72 K/uL (1.80-7.70); NEUTROPHILS PERCENT AUTO 78.3 % (41.0-71.0); PLATELET COUNT,PLT 133 K/uL (150-400); RED BLOOD CELL COUNT 3.75 M/uL (4.52-5.90)
[2023-12-01 10:53] LABS: A/G RATIO 0.8 (0.9-1.6); BILIRUBIN TOTAL 0.4 mg/dL (0.2-1.0); CALCIUM 9.1 mg/dL (8.5-10.1); CARBON DIOXIDE,CO2 26.5 mmol/L (21.0-32.0); CREATININE 1.2 mg/dL (0.8-1.3); EST CRCL DRUG DOSING (CG) 51.55 mL/min; POTASSIUM,K 4.6 mmol/L (3.5-5.1); PROTEIN TOTAL,TP 6.9 g/dL (6.4-8.2)
[2023-12-01] MEDS ORDERED: oxyCODONE 5 MG Tab PO PRN (10:55)
[2023-12-01 11:01] LABS: CORONAVIRUS COVID-19 NAA NEGATIVE (NEGATIVE); INFLUENZA A NAA NEGATIVE (NEGATIVE); INFLUENZA B NAA NEGATIVE (NEGATIVE); RESPIRATORY SYNCYTIAL VIR NAA NEGATIVE (NEGATIVE)
[2023-12-01] MEDS: Acetaminophen 500 MG Tab PO ONE (11:10)
[2023-12-01 15:06] LABS: APPEARANCE,URINE CLEAR; BILIRUBIN,URINE NEGATIVE (NEGATIVE); COLOR,URINE YELLOW; GLUCOSE,URINE NEGATIVE (NEGATIVE); KETONES,URINE TRACE mg/dL (NEGATIVE); LEUKOCYTE ESTERASE,URINE TRACE (NEGATIVE); NITRITE,URINE NEGATIVE (NEGATIVE); OCCULT BLOOD,URINE TRACE-INTACT (NEGATIVE); PROTEIN,URINE NEGATIVE (NEGATIVE)
[2023-12-01 15:19] LABS: BACTERIA,URINE RARE (NEGATIVE); EPITHELIAL CELLS,URINE FEW (NONE-FEW)
[2023-12-01] MEDS: cefTRIAXone 2 GM in Sodium Chloride 0.9% 50 ML IV ONE (16:10)
[2023-12-01] MEDS: Sodium Chloride 0.9% 500 ML IV ONE (16:10)
[2023-12-01] MEDS ORDERED: Glucagon,Human Recombinant 1 MG Vial IM PRN (18:33)
[2023-12-01] MEDS ORDERED: 50% Dextrose in Water 50 ML Syringe IVPUSH PRN (18:33)
[2023-12-01] MEDS: Insulin Aspart 100 Units/ML 3 ML Pen SUBCUT SCH (19:14)
[2023-12-01] MEDS: Formoterol/Mometasone 100-5 MCG 8.8 GM Inhaler INH SCH (20:49)
[2023-12-01] MEDS: Apixaban 5 MG Tab PO SCH (20:49)
[2023-12-01] MEDS: Topiramate 50 MG Tab PO SCH (20:49)
[2023-12-01] MEDS: Fluticasone NASAL Spray 16 GM Bottle NASBOTH SCH (20:50)
[2023-12-01] MEDS ORDERED: Non-Formulary Medication 1 Each (Simvastatin 40 MG Tablet) PO SCH (21:00)
[2023-12-01] MEDS: Albuterol/Ipratropium 3.0-0.5 MG/3 ML Neb Soln INH SCH (22:33)
[2023-12-01] MEDS: Gabapentin 300 MG Cap PO SCH (22:33)
[2023-12-02] MEDS: Primidone 250 MG Tab PO SCH (00:50)
[2023-12-02 05:42] LABS: BASOPHILS ABSOLUTE AUTO 0.04 K/uL (0.00-0.20); BASOPHILS PERCENT AUTO 0.6 % (0.0-1.0); EOSINOPHILS ABSOLUTE AUTO 0.09 K/uL (0.00-0.45); EOSINOPHILS PERCENT AUTO 1.4 % (0.0-6.0); HEMATOCRIT 38.4 % (42.0-52.0); HEMOGLOBIN 12.3 g/dL (14.0-18.0); LYMPHOCYTES ABSOLUTE AUTO 1.39 K/uL (1.00-4.80); LYMPHOCYTES PERCENT AUTO 22.1 % (24.0-44.0); MEAN CORPUSCULAR HEMOGLOBIN 34.6 pg (28.0-32.0); MEAN CORPUSCULAR VOLUME 108.2 fL (83.0-99.0); MEAN PLATELET VOLUME 12.6 fL (9.4-12.4); MONOCYTES ABSOLUTE AUTO 0.47 K/uL (0.00-0.80); MONOCYTES PERCENT AUTO 7.5 % (0.0-8.0); NEUTROPHILS PERCENT AUTO 68.4 % (41.0-71.0); PLATELET COUNT,PLT 138 K/uL (150-400); RED BLOOD CELL COUNT 3.55 M/uL (4.52-5.90); WHITE BLOOD CELL COUNT,WBC 6.29 K/uL (3.9-11.3)
[2023-12-02 06:18] LABS: A/G RATIO 0.8 (0.9-1.6); ALBUMIN 2.8 g/dL (3.4-5.0); BILIRUBIN TOTAL 0.4 mg/dL (0.2-1.0); CALCIUM 8.6 mg/dL (8.5-10.1); CARBON DIOXIDE,CO2 25.8 mmol/L (21.0-32.0); EST CRCL DRUG DOSING (CG) 61.86 mL/min; POTASSIUM,K 4.3 mmol/L (3.5-5.1); PROTEIN TOTAL,TP 6.4 g/dL (6.4-8.2)
[2023-12-02] MEDS: Pantoprazole 40 MG Tab.CR PO SCH (06:42)
[2023-12-02] MEDS ORDERED: Insulin Aspart 100 Units/ML 3 ML Pen SUBCUT SCH (07:30)
[2023-12-02] MEDS: Diltiazem IR 60 MG Tab PO SCH (09:18)
[2023-12-02] MEDS: Metoprolol Succinate 50 MG Tab.ER PO SCH (09:18)
[2023-12-02] MEDS: Aspirin 81 MG Tab.EC PO SCH (09:19)
[2023-12-02] MEDS: Iopamidol 755 MG/ML 500 ML Multipack Bottle IVPUSH STA (10:53)
[2023-12-02] MEDS: Nystatin Topical Powder 15 GM Bottle TOP SCH (11:16)
[2023-12-02] MEDS: Lisinopril 10 MG Tab PO SCH (11:17)
[2023-12-02] MEDS: Tamsulosin 0.4 MG Cap.ER PO SCH (11:17)
[2023-12-02] MEDS: cefTRIAXone 2 GM in Sodium Chloride 0.9% 50 ML IV SCH (11:17)
[2023-12-02] MEDS: traMADol 50 MG Tab PO PRN (13:42)
[2023-12-02] MEDS: atorvaSTATin 20 MG Tab PO SCH (18:18)
[2023-12-03 06:57] LABS: BASOPHILS ABSOLUTE AUTO 0.03 K/uL (0.00-0.20); BASOPHILS PERCENT AUTO 0.6 % (0.0-1.0); EOSINOPHILS ABSOLUTE AUTO 0.09 K/uL (0.00-0.45); EOSINOPHILS PERCENT AUTO 1.8 % (0.0-6.0); HEMATOCRIT 37.6 % (42.0-52.0); HEMOGLOBIN 12.1 g/dL (14.0-18.0); IMMATURE GRAN ABSOLUTE AUTO 0.01 K/uL (0.00-0.05); IMMATURE GRAN PERCENT AUTO 0.2 % (0.0-0.4); LYMPHOCYTES ABSOLUTE AUTO 1.32 K/uL (1.00-4.80); LYMPHOCYTES PERCENT AUTO 26.1 % (24.0-44.0); MEAN CORPUSCULAR HEMOGLOBIN 35.2 pg (28.0-32.0); MEAN CORPUSCULAR HGB CONC 32.2 g/dL (32.0-36.0); MEAN CORPUSCULAR VOLUME 109.3 fL (83.0-99.0); MEAN PLATELET VOLUME 12.6 fL (9.4-12.4); MONOCYTES ABSOLUTE AUTO 0.46 K/uL (0.00-0.80); MONOCYTES PERCENT AUTO 9.1 % (0.0-8.0); NEUTROPHILS ABSOLUTE AUTO 3.15 K/uL (1.80-7.70); NEUTROPHILS PERCENT AUTO 62.2 % (41.0-71.0); PLATELET COUNT,PLT 111 K/uL (150-400); RED BLOOD CELL COUNT 3.44 M/uL (4.52-5.90); WHITE BLOOD CELL COUNT,WBC 5.06 K/uL (3.9-11.3)
[2023-12-03 08:59] LABS: A/G RATIO 0.8 (0.9-1.6); ALBUMIN 2.8 g/dL (3.4-5.0); BILIRUBIN TOTAL 0.4 mg/dL (0.2-1.0); CALCIUM 8.6 mg/dL (8.5-10.1); CARBON DIOXIDE,CO2 27.7 mmol/L (21.0-32.0); EST CRCL DRUG DOSING (CG) 61.86 mL/min; POTASSIUM,K 4.3 mmol/L (3.5-5.1); PROTEIN TOTAL,TP 6.4 g/dL (6.4-8.2)
[2023-12-03] MEDS: Furosemide 40 MG/4 ML VIAL IVPUSH ONE (15:51)
[2023-12-03] MEDS: Polyethylene Glycol 3350 Powder 17 GM Packet PO PRN (16:02)
[2023-12-04] MEDS: tiZANidine 4 MG Tab PO PRN (02:24)
[2023-12-04 06:05] LABS: BASOPHILS ABSOLUTE AUTO 0.03 K/uL (0.00-0.20); BASOPHILS PERCENT AUTO 0.6 % (0.0-1.0); EOSINOPHILS ABSOLUTE AUTO 0.09 K/uL (0.00-0.45); EOSINOPHILS PERCENT AUTO 1.8 % (0.0-6.0); HEMATOCRIT 35.4 % (42.0-52.0); HEMOGLOBIN 11.5 g/dL (14.0-18.0); IMMATURE GRAN ABSOLUTE AUTO 0.01 K/uL (0.00-0.05); IMMATURE GRAN PERCENT AUTO 0.2 % (0.0-0.4); LYMPHOCYTES ABSOLUTE AUTO 1.39 K/uL (1.00-4.80); LYMPHOCYTES PERCENT AUTO 28.3 % (24.0-44.0); MEAN CORPUSCULAR HEMOGLOBIN 35.4 pg (28.0-32.0); MEAN CORPUSCULAR HGB CONC 32.5 g/dL (32.0-36.0); MEAN CORPUSCULAR VOLUME 108.9 fL (83.0-99.0); MEAN PLATELET VOLUME 12.1 fL (9.4-12.4); MONOCYTES ABSOLUTE AUTO 0.38 K/uL (0.00-0.80); MONOCYTES PERCENT AUTO 7.7 % (0.0-8.0); NEUTROPHILS ABSOLUTE AUTO 3.02 K/uL (1.80-7.70); NEUTROPHILS PERCENT AUTO 61.4 % (41.0-71.0); PLATELET COUNT,PLT 115 K/uL (150-400); RED BLOOD CELL COUNT 3.25 M/uL (4.52-5.90); WHITE BLOOD CELL COUNT,WBC 4.92 K/uL (3.9-11.3)
[2023-12-04 06:45] LABS: A/G RATIO 0.6 (0.9-1.6); ALBUMIN 2.3 g/dL (3.4-5.0); BILIRUBIN TOTAL 0.3 mg/dL (0.2-1.0); CALCIUM 8.6 mg/dL (8.5-10.1); CARBON DIOXIDE,CO2 24.2 mmol/L (21.0-32.0); EST CRCL DRUG DOSING (CG) 61.86 mL/min; POTASSIUM,K 4.1 mmol/L (3.5-5.1); PROTEIN TOTAL,TP 5.9 g/dL (6.4-8.2)
[2023-12-04] MEDS: Sennosides 8.6 MG Tab PO SCH (11:46)
[2023-12-04] MEDS: Furosemide 20 MG/2 ML VIAL IVPUSH SCH (11:47)
[2023-12-04] MEDS: Polyethylene Glycol 3350 Powder 17 GM Packet PO SCH (11:47)
[2023-12-04] MEDS: Acetaminophen 325 MG Tab PO PRN (15:18)
[2023-12-04] MEDS: Insulin Glargine,Hum.Rec.Anlog 100 UNIT/ML 3 ML Pen SUBCUT SCH (18:53)
[2023-12-05 06:26] LABS: BASOPHILS ABSOLUTE AUTO 0.04 K/uL (0.00-0.20); BASOPHILS PERCENT AUTO 0.8 % (0.0-1.0); EOSINOPHILS ABSOLUTE AUTO 0.09 K/uL (0.00-0.45); EOSINOPHILS PERCENT AUTO 1.8 % (0.0-6.0); HEMATOCRIT 38.8 % (42.0-52.0); HEMOGLOBIN 12.4 g/dL (14.0-18.0); IMMATURE GRAN ABSOLUTE AUTO 0.01 K/uL (0.00-0.05); IMMATURE GRAN PERCENT AUTO 0.2 % (0.0-0.4); LYMPHOCYTES ABSOLUTE AUTO 1.41 K/uL (1.00-4.80); LYMPHOCYTES PERCENT AUTO 27.4 % (24.0-44.0); MEAN CORPUSCULAR HEMOGLOBIN 34.7 pg (28.0-32.0); MEAN CORPUSCULAR VOLUME 108.7 fL (83.0-99.0); MEAN PLATELET VOLUME 11.9 fL (9.4-12.4); MONOCYTES ABSOLUTE AUTO 0.38 K/uL (0.00-0.80); MONOCYTES PERCENT AUTO 7.4 % (0.0-8.0); NEUTROPHILS ABSOLUTE AUTO 3.21 K/uL (1.80-7.70); NEUTROPHILS PERCENT AUTO 62.4 % (41.0-71.0); PLATELET COUNT,PLT 109 K/uL (150-400); RED BLOOD CELL COUNT 3.57 M/uL (4.52-5.90); WHITE BLOOD CELL COUNT,WBC 5.14 K/uL (3.9-11.3)
[2023-12-05 07:01] LABS: A/G RATIO 0.8 (0.9-1.6); ALBUMIN 2.7 g/dL (3.4-5.0); BILIRUBIN TOTAL 0.3 mg/dL (0.2-1.0); CALCIUM 9.3 mg/dL (8.5-10.1); CARBON DIOXIDE,CO2 27.9 mmol/L (21.0-32.0); CREATININE 0.9 mg/dL (0.8-1.3); EST CRCL DRUG DOSING (CG) 68.74 mL/min; MAGNESIUM 1.9 mg/dL (1.8-2.4); PROTEIN TOTAL,TP 6.3 g/dL (6.4-8.2)
[2023-12-05] MEDS: Docusate Sodium 100 MG Cap PO SCH (11:28)
[2023-12-06 06:02] LABS: BASOPHILS ABSOLUTE AUTO 0.03 K/uL (0.00-0.20); BASOPHILS PERCENT AUTO 0.6 % (0.0-1.0); EOSINOPHILS ABSOLUTE AUTO 0.08 K/uL (0.00-0.45); EOSINOPHILS PERCENT AUTO 1.6 % (0.0-6.0); HEMATOCRIT 37.5 % (42.0-52.0); HEMOGLOBIN 12.3 g/dL (14.0-18.0); IMMATURE GRAN ABSOLUTE AUTO 0.01 K/uL (0.00-0.05); IMMATURE GRAN PERCENT AUTO 0.2 % (0.0-0.4); LYMPHOCYTES ABSOLUTE AUTO 1.38 K/uL (1.00-4.80); LYMPHOCYTES PERCENT AUTO 27.1 % (24.0-44.0); MEAN CORPUSCULAR HEMOGLOBIN 35.2 pg (28.0-32.0); MEAN CORPUSCULAR HGB CONC 32.8 g/dL (32.0-36.0); MEAN CORPUSCULAR VOLUME 107.4 fL (83.0-99.0); MEAN PLATELET VOLUME 12.6 fL (9.4-12.4); MONOCYTES ABSOLUTE AUTO 0.41 K/uL (0.00-0.80); NEUTROPHILS ABSOLUTE AUTO 3.19 K/uL (1.80-7.70); NEUTROPHILS PERCENT AUTO 62.5 % (41.0-71.0); PLATELET COUNT,PLT 111 K/uL (150-400); RED BLOOD CELL COUNT 3.49 M/uL (4.52-5.90)
[2023-12-06 06:31] LABS: A/G RATIO 0.8 (0.9-1.6); ALBUMIN 2.7 g/dL (3.4-5.0); BILIRUBIN TOTAL 0.3 mg/dL (0.2-1.0); CALCIUM 8.8 mg/dL (8.5-10.1); CARBON DIOXIDE,CO2 26.6 mmol/L (21.0-32.0); CREATININE 1.1 mg/dL (0.8-1.3); EST CRCL DRUG DOSING (CG) 56.24 mL/min; MAGNESIUM 1.7 mg/dL (1.8-2.4); PHOSPHORUS 3.7 mg/dL (2.6-4.7); POTASSIUM,K 3.8 mmol/L (3.5-5.1); PROTEIN TOTAL,TP 6.2 g/dL (6.4-8.2)
[2023-12-06] MEDS: Magnesium Sulfate/Water 2 GM in Premix Bag 1 BAG IV ONE (10:11)
[2023-12-06] MEDS: Diltiazem 180 MG Cap.CD PO SCH (10:22)
[2023-12-07 05:55] LABS: BASOPHILS ABSOLUTE AUTO 0.04 K/uL (0.00-0.20); BASOPHILS PERCENT AUTO 0.7 % (0.0-1.0); EOSINOPHILS ABSOLUTE AUTO 0.11 K/uL (0.00-0.45); EOSINOPHILS PERCENT AUTO 1.9 % (0.0-6.0); HEMATOCRIT 39.5 % (42.0-52.0); HEMOGLOBIN 12.9 g/dL (14.0-18.0); IMMATURE GRAN ABSOLUTE AUTO 0.01 K/uL (0.00-0.05); IMMATURE GRAN PERCENT AUTO 0.2 % (0.0-0.4); LYMPHOCYTES PERCENT AUTO 26.5 % (24.0-44.0); MEAN CORPUSCULAR HEMOGLOBIN 35.2 pg (28.0-32.0); MEAN CORPUSCULAR HGB CONC 32.7 g/dL (32.0-36.0); MEAN CORPUSCULAR VOLUME 107.9 fL (83.0-99.0); MEAN PLATELET VOLUME 12.8 fL (9.4-12.4); MONOCYTES PERCENT AUTO 8.8 % (0.0-8.0); NEUTROPHILS PERCENT AUTO 61.9 % (41.0-71.0); PLATELET COUNT,PLT 120 K/uL (150-400); RED BLOOD CELL COUNT 3.66 M/uL (4.52-5.90); WHITE BLOOD CELL COUNT,WBC 5.66 K/uL (3.9-11.3)
[2023-12-07 06:32] LABS: A/G RATIO 0.7 (0.9-1.6); ALBUMIN 2.8 g/dL (3.4-5.0); BILIRUBIN TOTAL 0.2 mg/dL (0.2-1.0); CALCIUM 9.1 mg/dL (8.5-10.1); CARBON DIOXIDE,CO2 27.5 mmol/L (21.0-32.0); CREATININE 1.1 mg/dL (0.8-1.3); EST CRCL DRUG DOSING (CG) 56.24 mL/min; PROTEIN TOTAL,TP 6.8 g/dL (6.4-8.2)
[2023-12-08] MEDS: Polyethylene Glycol 3350 Powder 17 GM Packet PO SCH (09:55)
[2023-12-08] MEDS: Melatonin 3 MG Tab PO PRN (21:42)
[2023-12-09 05:48] LABS: BASOPHILS ABSOLUTE AUTO 0.03 K/uL (0.00-0.20); BASOPHILS PERCENT AUTO 0.5 % (0.0-1.0); EOSINOPHILS ABSOLUTE AUTO 0.11 K/uL (0.00-0.45); HEMATOCRIT 39.2 % (42.0-52.0); HEMOGLOBIN 12.9 g/dL (14.0-18.0); LYMPHOCYTES ABSOLUTE AUTO 1.71 K/uL (1.00-4.80); LYMPHOCYTES PERCENT AUTO 30.6 % (24.0-44.0); MEAN CORPUSCULAR HEMOGLOBIN 35.5 pg (28.0-32.0); MEAN CORPUSCULAR HGB CONC 32.9 g/dL (32.0-36.0); MEAN PLATELET VOLUME 12.8 fL (9.4-12.4); MONOCYTES ABSOLUTE AUTO 0.62 K/uL (0.00-0.80); MONOCYTES PERCENT AUTO 11.1 % (0.0-8.0); NEUTROPHILS ABSOLUTE AUTO 3.12 K/uL (1.80-7.70); NEUTROPHILS PERCENT AUTO 55.8 % (41.0-71.0); PLATELET COUNT,PLT 107 K/uL (150-400); RED BLOOD CELL COUNT 3.63 M/uL (4.52-5.90); WHITE BLOOD CELL COUNT,WBC 5.59 K/uL (3.9-11.3)
[2023-12-09 06:04] LABS: A/G RATIO 0.8 (0.9-1.6); ALBUMIN 2.7 g/dL (3.4-5.0); BILIRUBIN TOTAL 0.3 mg/dL (0.2-1.0); CALCIUM 8.8 mg/dL (8.5-10.1); CARBON DIOXIDE,CO2 27.4 mmol/L (21.0-32.0); CREATININE 1.1 mg/dL (0.8-1.3); EST CRCL DRUG DOSING (CG) 56.24 mL/min; POTASSIUM,K 3.9 mmol/L (3.5-5.1); PROTEIN TOTAL,TP 6.3 g/dL (6.4-8.2)
[2023-12-09] MEDS: Potassium Chloride 20 MEQ Tab.ER PO ONE ×2 (08:24→12:25)
[2023-12-09] MEDS: Furosemide 40 MG Tab PO SCH (14:34)
[2023-12-10 06:30] LABS: BASOPHILS ABSOLUTE AUTO 0.04 K/uL (0.00-0.20); BASOPHILS PERCENT AUTO 0.7 % (0.0-1.0); EOSINOPHILS PERCENT AUTO 1.7 % (0.0-6.0); HEMATOCRIT 38.8 % (42.0-52.0); HEMOGLOBIN 12.5 g/dL (14.0-18.0); IMMATURE GRAN ABSOLUTE AUTO 0.01 K/uL (0.00-0.05); IMMATURE GRAN PERCENT AUTO 0.2 % (0.0-0.4); LYMPHOCYTES ABSOLUTE AUTO 1.56 K/uL (1.00-4.80); LYMPHOCYTES PERCENT AUTO 26.5 % (24.0-44.0); MEAN CORPUSCULAR HGB CONC 32.2 g/dL (32.0-36.0); MEAN CORPUSCULAR VOLUME 108.7 fL (83.0-99.0); MEAN PLATELET VOLUME 12.4 fL (9.4-12.4); MONOCYTES PERCENT AUTO 8.5 % (0.0-8.0); NEUTROPHILS ABSOLUTE AUTO 3.68 K/uL (1.80-7.70); NEUTROPHILS PERCENT AUTO 62.4 % (41.0-71.0); PLATELET COUNT,PLT 108 K/uL (150-400); RED BLOOD CELL COUNT 3.57 M/uL (4.52-5.90); WHITE BLOOD CELL COUNT,WBC 5.89 K/uL (3.9-11.3)
[2023-12-10 06:59] LABS: A/G RATIO 0.8 (0.9-1.6); ALBUMIN 2.8 g/dL (3.4-5.0); BILIRUBIN TOTAL 0.3 mg/dL (0.2-1.0); CALCIUM 8.5 mg/dL (8.5-10.1); CREATININE 1.3 mg/dL (0.8-1.3); EST CRCL DRUG DOSING (CG) 47.59 mL/min; MAGNESIUM 1.9 mg/dL (1.8-2.4); POTASSIUM,K 4.3 mmol/L (3.5-5.1); PROTEIN TOTAL,TP 6.4 g/dL (6.4-8.2)
[2023-12-10 07:12] LABS: CARBON DIOXIDE,CO2 26.2 mmol/L (21.0-32.0)
[2023-12-11 06:32] LABS: BASOPHILS ABSOLUTE AUTO 0.05 K/uL (0.00-0.20); BASOPHILS PERCENT AUTO 0.9 % (0.0-1.0); EOSINOPHILS ABSOLUTE AUTO 0.11 K/uL (0.00-0.45); EOSINOPHILS PERCENT AUTO 1.9 % (0.0-6.0); HEMATOCRIT 38.6 % (42.0-52.0); HEMOGLOBIN 12.5 g/dL (14.0-18.0); IMMATURE GRAN ABSOLUTE AUTO 0.02 K/uL (0.00-0.05); IMMATURE GRAN PERCENT AUTO 0.3 % (0.0-0.4); LYMPHOCYTES PERCENT AUTO 27.6 % (24.0-44.0); MEAN CORPUSCULAR HGB CONC 32.4 g/dL (32.0-36.0); MEAN CORPUSCULAR VOLUME 108.1 fL (83.0-99.0); MEAN PLATELET VOLUME 12.5 fL (9.4-12.4); MONOCYTES ABSOLUTE AUTO 0.45 K/uL (0.00-0.80); MONOCYTES PERCENT AUTO 7.8 % (0.0-8.0); NEUTROPHILS ABSOLUTE AUTO 3.57 K/uL (1.80-7.70); NEUTROPHILS PERCENT AUTO 61.5 % (41.0-71.0); PLATELET COUNT,PLT 103 K/uL (150-400); RED BLOOD CELL COUNT 3.57 M/uL (4.52-5.90)
[2023-12-11 07:00] LABS: A/G RATIO 0.8 (0.9-1.6); ALBUMIN 2.8 g/dL (3.4-5.0); BILIRUBIN TOTAL 0.4 mg/dL (0.2-1.0); CALCIUM 8.7 mg/dL (8.5-10.1); CARBON DIOXIDE,CO2 28.3 mmol/L (21.0-32.0); CREATININE 1.1 mg/dL (0.8-1.3); EST CRCL DRUG DOSING (CG) 56.24 mL/min; PROTEIN TOTAL,TP 6.2 g/dL (6.4-8.2)
[2023-12-12 06:12] LABS: BASOPHILS ABSOLUTE AUTO 0.02 K/uL (0.00-0.20); BASOPHILS PERCENT AUTO 0.5 % (0.0-1.0); EOSINOPHILS ABSOLUTE AUTO 0.09 K/uL (0.00-0.45); EOSINOPHILS PERCENT AUTO 2.1 % (0.0-6.0); HEMATOCRIT 36.5 % (42.0-52.0); LYMPHOCYTES ABSOLUTE AUTO 1.52 K/uL (1.00-4.80); LYMPHOCYTES PERCENT AUTO 34.8 % (24.0-44.0); MEAN CORPUSCULAR HEMOGLOBIN 35.2 pg (28.0-32.0); MEAN CORPUSCULAR HGB CONC 32.9 g/dL (32.0-36.0); MEAN PLATELET VOLUME 12.2 fL (9.4-12.4); MONOCYTES ABSOLUTE AUTO 0.34 K/uL (0.00-0.80); MONOCYTES PERCENT AUTO 7.8 % (0.0-8.0); NEUTROPHILS PERCENT AUTO 54.8 % (41.0-71.0); PLATELET COUNT,PLT 109 K/uL (150-400); RED BLOOD CELL COUNT 3.41 M/uL (4.52-5.90); WHITE BLOOD CELL COUNT,WBC 4.37 K/uL (3.9-11.3)
[2023-12-12 06:35] LABS: A/G RATIO 0.8 (0.9-1.6); ALBUMIN 2.7 g/dL (3.4-5.0); BILIRUBIN TOTAL 0.3 mg/dL (0.2-1.0); CALCIUM 8.5 mg/dL (8.5-10.1); CARBON DIOXIDE,CO2 28.7 mmol/L (21.0-32.0); EST CRCL DRUG DOSING (CG) 61.86 mL/min; POTASSIUM,K 3.9 mmol/L (3.5-5.1)
[2023-12-12] MEDS: Metoprolol Succinate 25 MG Tab.ER PO ONE (13:05)
[2023-12-13 08:01] VITALS: BP 119/78; PULSE 94
[2023-12-13] MEDS: Metoprolol Succinate 50 MG Tab.ER PO SCH (08:02)
== END 2023-12-13 13:25 | disposition home health service (06) | DRG 690 ==
LOC: MW.ED 09:07 → MW.MS 15:53 → OBSVTOIN 12-02 09:22 → MW.MS 12-02 11:15
PROVIDERS: ADMIT Family Medicine; ATTEND Nurse Practitioner Family
PROC: 0T9B70Z Drainage of Bladder with Drainage Device, Via Natural or Artificial Opening (ICD-10-PCS; principal; 2023-12-02)
DX: R53.1 Weakness (principal); N30.00 Acute cystitis without hematuria; Z68.43 Body mass index [BMI] 50.0-59.9, adult; I48.92 Unspecified atrial flutter; Z66 Do not resuscitate; R26.0 Ataxic gait; I50.9 Heart failure, unspecified; I11.0 Hypertensive heart disease with heart failure; I48.91 Unspecified atrial fibrillation; J44.9 Chronic obstructive pulmonary disease, unspecified; K21.9 Gastro-esophageal reflux disease without esophagitis; E11.40 Type 2 diabetes mellitus with diabetic neuropathy, unspecified; F41.9 Anxiety disorder, unspecified; E66.9 Obesity, unspecified; Z95.1 Presence of aortocoronary bypass graft; E83.42 Hypomagnesemia; E66.01 Morbid (severe) obesity due to excess calories; E86.0 Dehydration; I95.1 Orthostatic hypotension; R33.9 Retention of urine, unspecified; S42.212D Unspecified displaced fracture of surgical neck of left humerus, subsequent encounter for fracture with routine healing; X58.XXXD Exposure to other specified factors, subsequent encounter; G25.0 Essential tremor; E11.69 Type 2 diabetes mellitus with other specified complication; E78.5 Hyperlipidemia, unspecified; G47.33 Obstructive sleep apnea (adult) (pediatric); Z79.01 Long term (current) use of anticoagulants; Z79.4 Long term (current) use of insulin; Z79.82 Long term (current) use of aspirin; Z79.51 Long term (current) use of inhaled steroids; Z79.899 Other long term (current) drug therapy; I25.2 Old myocardial infarction; Z95.5 Presence of coronary angioplasty implant and graft; Z98.49 Cataract extraction status, unspecified eye; Z98.890 Other specified postprocedural states
CPT/HCPCS: 0241U; 36415; 51702; 70450; 70496; 70498; 71045; 73020; 73060; 73620; 80053; 81001; 82947; 83735; 83880; 84100; 85025; 93005; 93306; 94640; 96361; 96365; 97110; 97163; 97165; 97530; 99285; 36410; 93010; 99222; 99231; 99232; 99239; 99284; A9270-GY; G0378; J0696; J1815-GY; J1940; J3475; J3490; J7030; J7620-GY; Q9967

== ENCOUNTER 2023-12-19 14:58 | Inpatient (IN) | payer MEDICARE, OTHER ==
[2023-12-19] MEDS ORDERED: Sodium Chloride 0.9% 2.5 ML Syringe FLUSH PRN (15:12)
[2023-12-19] MEDS ORDERED: Sodium Chloride 0.9% 10 ML Syringe FLUSH PRN (15:12)
[2023-12-19] MEDS: Sodium Chloride 0.9% 1,000 ML IV ONE ×2 (15:23→16:15)
[2023-12-19 15:25] LABS: BASOPHILS ABSOLUTE AUTO 0.04 K/uL (0.00-0.20); BASOPHILS PERCENT AUTO 0.6 % (0.0-1.0); EOSINOPHILS ABSOLUTE AUTO 0.09 K/uL (0.00-0.45); EOSINOPHILS PERCENT AUTO 1.3 % (0.0-6.0); HEMATOCRIT 44.8 % (42.0-52.0); HEMOGLOBIN 14.7 g/dL (14.0-18.0); IMMATURE GRAN ABSOLUTE AUTO 0.01 K/uL (0.00-0.05); IMMATURE GRAN PERCENT AUTO 0.1 % (0.0-0.4); LYMPHOCYTES ABSOLUTE AUTO 1.64 K/uL (1.00-4.80); LYMPHOCYTES PERCENT AUTO 22.9 % (24.0-44.0); MEAN CORPUSCULAR HEMOGLOBIN 35.3 pg (28.0-32.0); MEAN CORPUSCULAR HGB CONC 32.8 g/dL (32.0-36.0); MEAN CORPUSCULAR VOLUME 107.7 fL (83.0-99.0); MEAN PLATELET VOLUME 12.2 fL (9.4-12.4); MONOCYTES ABSOLUTE AUTO 0.42 K/uL (0.00-0.80); MONOCYTES PERCENT AUTO 5.9 % (0.0-8.0); NEUTROPHILS ABSOLUTE AUTO 4.95 K/uL (1.80-7.70); NEUTROPHILS PERCENT AUTO 69.2 % (41.0-71.0); PLATELET COUNT,PLT 180 K/uL (150-400); RED BLOOD CELL COUNT 4.16 M/uL (4.52-5.90); WHITE BLOOD CELL COUNT,WBC 7.15 K/uL (3.9-11.3)
[2023-12-19 15:40] LABS: APPEARANCE,URINE CLEAR; BILIRUBIN,URINE NEGATIVE (NEGATIVE); COLOR,URINE YELLOW; GLUCOSE,URINE NEGATIVE (NEGATIVE); KETONES,URINE NEGATIVE (NEGATIVE); LEUKOCYTE ESTERASE,URINE NEGATIVE (NEGATIVE); NITRITE,URINE NEGATIVE (NEGATIVE); OCCULT BLOOD,URINE NEGATIVE (NEGATIVE); PROTEIN,URINE NEGATIVE (NEGATIVE); UROBILINOGEN,URINE 0.2 EU/dL (<2.0)
[2023-12-19 15:59] LABS: A/G RATIO 0.8 (0.9-1.6); ALBUMIN 2.9 g/dL (3.4-5.0); BILIRUBIN TOTAL 0.5 mg/dL (0.2-1.0); CARBON DIOXIDE,CO2 27.9 mmol/L (21.0-32.0); CREATININE 1.3 mg/dL (0.8-1.3); EST CRCL DRUG DOSING (CG) 44.49 mL/min; POTASSIUM,K 4.7 mmol/L (3.5-5.1); PROTEIN TOTAL,TP 6.7 g/dL (6.4-8.2)
[2023-12-19 16:05] LABS: CORONAVIRUS COVID-19 NAA NEGATIVE (NEGATIVE); INFLUENZA A NAA NEGATIVE (NEGATIVE); INFLUENZA B NAA NEGATIVE (NEGATIVE)
[2023-12-19 16:36] LABS: T3 FREE 2.27 pg/mL (2.18-3.98); T4 FREE 0.79 ng/dL (0.76-1.46)
[2023-12-19] MEDS ORDERED: Acetaminophen 650 MG Supp RECTAL PRN (18:44)
[2023-12-19] MEDS ORDERED: Albuterol/Ipratropium 3.0-0.5 MG/3 ML Neb Soln NEB PRN (18:44)
[2023-12-19] MEDS ORDERED: Polyethylene Glycol 3350 Powder 17 GM Packet PO PRN (18:44)
[2023-12-19] MEDS ORDERED: 50% Dextrose in Water 50 ML Syringe IVPUSH PRN (21:15)
[2023-12-19] MEDS ORDERED: Glucagon,Human Recombinant 1 MG Vial IM PRN (21:15)
[2023-12-19] MEDS ORDERED: traMADol 50 MG Tab PO PRN (21:16)
[2023-12-19] MEDS ORDERED: Acetaminophen 325 MG Tab PO PRN (21:16)
[2023-12-19] MEDS: Melatonin 3 MG Tab PO PRN (21:49)
[2023-12-19] MEDS: Acetaminophen 325 MG Tab PO PRN (21:52)
[2023-12-19] MEDS: Insulin Aspart 100 Units/ML 3 ML Pen SUBCUT SCH (21:53)
[2023-12-19] MEDS: Apixaban 5 MG Tab PO SCH (22:58)
[2023-12-19] MEDS: Gabapentin 300 MG Cap PO SCH (22:58)
[2023-12-19] MEDS: atorvaSTATin 20 MG Tab PO SCH (22:58)
[2023-12-20 05:36] LABS: BASOPHILS ABSOLUTE AUTO 0.04 K/uL (0.00-0.20); BASOPHILS PERCENT AUTO 0.8 % (0.0-1.0); EOSINOPHILS ABSOLUTE AUTO 0.08 K/uL (0.00-0.45); EOSINOPHILS PERCENT AUTO 1.5 % (0.0-6.0); HEMATOCRIT 39.9 % (42.0-52.0); HEMOGLOBIN 12.9 g/dL (14.0-18.0); LYMPHOCYTES ABSOLUTE AUTO 1.64 K/uL (1.00-4.80); LYMPHOCYTES PERCENT AUTO 30.8 % (24.0-44.0); MEAN CORPUSCULAR HGB CONC 32.3 g/dL (32.0-36.0); MEAN CORPUSCULAR VOLUME 108.1 fL (83.0-99.0); MEAN PLATELET VOLUME 12.2 fL (9.4-12.4); MONOCYTES ABSOLUTE AUTO 0.37 K/uL (0.00-0.80); MONOCYTES PERCENT AUTO 6.9 % (0.0-8.0); PLATELET COUNT,PLT 140 K/uL (150-400); RED BLOOD CELL COUNT 3.69 M/uL (4.52-5.90); WHITE BLOOD CELL COUNT,WBC 5.33 K/uL (3.9-11.3)
[2023-12-20 06:02] LABS: CALCIUM 8.6 mg/dL (8.5-10.1); CARBON DIOXIDE,CO2 26.7 mmol/L (21.0-32.0); EST CRCL DRUG DOSING (CG) 57.84 mL/min; MAGNESIUM 1.9 mg/dL (1.8-2.4)
[2023-12-20] MEDS: tiZANidine 4 MG Tab PO PRN (07:41)
[2023-12-20] MEDS: Metoprolol Succinate 25 MG Tab.ER PO SCH (08:26)
[2023-12-20] MEDS: Topiramate 50 MG Tab PO SCH (08:27)
[2023-12-20] MEDS: Furosemide 20 MG Tab PO SCH (08:27)
[2023-12-20] MEDS: Primidone 250 MG Tab PO SCH (08:27)
[2023-12-20] MEDS ORDERED: Fluticasone NASAL Spray 16 GM Bottle NASBOTH SCH (09:00)
[2023-12-20] MEDS: Ondansetron 4 MG/2 ML SDV IVPUSH PRN (10:28)
[2023-12-20] MEDS: Calcium Carbonate 500 MG Tab.Chew PO PRN (11:56)
[2023-12-20] MEDS: Pantoprazole 40 MG Tab.CR PO SCH (11:59)
[2023-12-20] MEDS: Insulin Glargine,Hum.Rec.Anlog 100 UNIT/ML 3 ML Pen SUBCUT SCH (18:15)
[2023-12-20] MEDS: Tamsulosin 0.4 MG Cap.ER PO SCH (21:18)
[2023-12-20] MEDS: Gabapentin 300 MG Cap PO SCH (21:18)
[2023-12-20] MEDS: Fluticasone NASAL Spray 16 GM Bottle NASBOTH SCH (21:19)
[2023-12-21 05:33] LABS: BASOPHILS ABSOLUTE AUTO 0.04 K/uL (0.00-0.20); BASOPHILS PERCENT AUTO 0.8 % (0.0-1.0); EOSINOPHILS ABSOLUTE AUTO 0.09 K/uL (0.00-0.45); EOSINOPHILS PERCENT AUTO 1.7 % (0.0-6.0); HEMATOCRIT 39.5 % (42.0-52.0); HEMOGLOBIN 12.9 g/dL (14.0-18.0); IMMATURE GRAN ABSOLUTE AUTO 0.01 K/uL (0.00-0.05); IMMATURE GRAN PERCENT AUTO 0.2 % (0.0-0.4); LYMPHOCYTES ABSOLUTE AUTO 1.75 K/uL (1.00-4.80); MEAN CORPUSCULAR HEMOGLOBIN 35.1 pg (28.0-32.0); MEAN CORPUSCULAR HGB CONC 32.7 g/dL (32.0-36.0); MEAN CORPUSCULAR VOLUME 107.3 fL (83.0-99.0); MEAN PLATELET VOLUME 12.4 fL (9.4-12.4); MONOCYTES ABSOLUTE AUTO 0.41 K/uL (0.00-0.80); MONOCYTES PERCENT AUTO 7.7 % (0.0-8.0); NEUTROPHILS ABSOLUTE AUTO 3.01 K/uL (1.80-7.70); NEUTROPHILS PERCENT AUTO 56.6 % (41.0-71.0); PLATELET COUNT,PLT 134 K/uL (150-400); RED BLOOD CELL COUNT 3.68 M/uL (4.52-5.90); WHITE BLOOD CELL COUNT,WBC 5.31 K/uL (3.9-11.3)
[2023-12-21 05:54] LABS: CALCIUM 8.7 mg/dL (8.5-10.1); CARBON DIOXIDE,CO2 30.1 mmol/L (21.0-32.0); CREATININE 0.9 mg/dL (0.8-1.3); EST CRCL DRUG DOSING (CG) 64.26 mL/min; MAGNESIUM 1.7 mg/dL (1.8-2.4); POTASSIUM,K 3.8 mmol/L (3.5-5.1)
[2023-12-21] MEDS: Levothyroxine 100 MCG Tab PO SCH (08:15)
[2023-12-21] MEDS: Magnesium Sulfate/Water 2 GM in Premix Bag 1 BAG IV ONE (08:24)
[2023-12-21] MEDS: tiZANidine 4 MG Tab PO PRN (21:22)
[2023-12-22 05:47] LABS: BASOPHILS ABSOLUTE AUTO 0.03 K/uL (0.00-0.20); BASOPHILS PERCENT AUTO 0.6 % (0.0-1.0); EOSINOPHILS ABSOLUTE AUTO 0.07 K/uL (0.00-0.45); EOSINOPHILS PERCENT AUTO 1.4 % (0.0-6.0); HEMATOCRIT 39.3 % (42.0-52.0); HEMOGLOBIN 12.8 g/dL (14.0-18.0); LYMPHOCYTES ABSOLUTE AUTO 1.57 K/uL (1.00-4.80); LYMPHOCYTES PERCENT AUTO 32.3 % (24.0-44.0); MEAN CORPUSCULAR HEMOGLOBIN 34.8 pg (28.0-32.0); MEAN CORPUSCULAR HGB CONC 32.6 g/dL (32.0-36.0); MEAN CORPUSCULAR VOLUME 106.8 fL (83.0-99.0); MEAN PLATELET VOLUME 12.6 fL (9.4-12.4); MONOCYTES ABSOLUTE AUTO 0.33 K/uL (0.00-0.80); MONOCYTES PERCENT AUTO 6.8 % (0.0-8.0); NEUTROPHILS ABSOLUTE AUTO 2.86 K/uL (1.80-7.70); NEUTROPHILS PERCENT AUTO 58.9 % (41.0-71.0); PLATELET COUNT,PLT 130 K/uL (150-400); RED BLOOD CELL COUNT 3.68 M/uL (4.52-5.90); WHITE BLOOD CELL COUNT,WBC 4.86 K/uL (3.9-11.3)
[2023-12-22 06:10] LABS: CALCIUM 8.6 mg/dL (8.5-10.1); CARBON DIOXIDE,CO2 29.3 mmol/L (21.0-32.0); CREATININE 0.9 mg/dL (0.8-1.3); EST CRCL DRUG DOSING (CG) 64.26 mL/min; POTASSIUM,K 3.5 mmol/L (3.5-5.1)
[2023-12-22] MEDS: Insulin Glargine,Hum.Rec.Anlog 100 UNIT/ML 3 ML Pen SUBCUT SCH (19:14)
[2023-12-22] MEDS: traMADol 50 MG Tab PO PRN (21:28)
[2023-12-23 10:40] VITALS: BP 116/53; PULSE 88
== END 2023-12-23 10:00 | DRG 315 ==
LOC: MW.ED 14:58 → MW.MS 16:14
PROVIDERS: ADMIT Family Medicine; ATTEND Family Medicine
DX: I95.9 Hypotension, unspecified (principal); E87.20 Acidosis, unspecified; I48.92 Unspecified atrial flutter; Z68.43 Body mass index [BMI] 50.0-59.9, adult; I50.22 Chronic systolic (congestive) heart failure; R26.2 Difficulty in walking, not elsewhere classified; E86.0 Dehydration; E03.9 Hypothyroidism, unspecified; R53.1 Weakness; I48.91 Unspecified atrial fibrillation; I11.0 Hypertensive heart disease with heart failure; S42.212D Unspecified displaced fracture of surgical neck of left humerus, subsequent encounter for fracture with routine healing; G47.33 Obstructive sleep apnea (adult) (pediatric); E66.01 Morbid (severe) obesity due to excess calories; R19.7 Diarrhea, unspecified; G25.0 Essential tremor; I50.9 Heart failure, unspecified; I25.10 Atherosclerotic heart disease of native coronary artery without angina pectoris; I25.2 Old myocardial infarction; F41.9 Anxiety disorder, unspecified; J44.9 Chronic obstructive pulmonary disease, unspecified; K21.9 Gastro-esophageal reflux disease without esophagitis; E11.40 Type 2 diabetes mellitus with diabetic neuropathy, unspecified; Z98.49 Cataract extraction status, unspecified eye; E66.9 Obesity, unspecified; Z79.899 Other long term (current) drug therapy; Z79.890 Hormone replacement therapy; Z79.4 Long term (current) use of insulin; Z79.01 Long term (current) use of anticoagulants; Z79.82 Long term (current) use of aspirin
CPT/HCPCS: 0240U; 36415; 80048; 80053; 81003; 82947; 83735; 83880; 84439; 84443; 84481; 85025; 93005; 96360; 97110; 97163; 97530; 99285; 93010; 99223; 99232; 99238; A9270-GY; J1815-GY; J2405; J3475; J7030